=== PATIENT | female | born 1940 | race Caucasian/White ===

== ENCOUNTER 2017-07-22 21:14 | Inpatient (IN) | payer OTHER ==
[~2017-07-22] VITALS: Ht 154.9 cm; Wt 50.9 kg
[2017-07-22 22:21] LABS: ABSOLUTE BASOPHIL COUNT 0 /CUMM (0.0-0.2); ABSOLUTE EOSINOPHIL COUNT 0.1 /CUMM (0.0-0.7); ABSOLUTE GRANULOCYTE CT 11.6 /CUMM (1.4-6.5); ABSOLUTE LYMPH COUNT 0.7 /CUMM (1.2-3.4); ABSOLUTE MONOCYTE COUNT 0.7 /CUMM (0.10-0.60); BASOPHIL % 0 % (0.0-2.0); EOSINOPHIL % 0.7 % (0-5); HEMATOCRIT 31.7 % (37-47); MEAN CORPUSCULAR HGB 28.7 PG (27.0-31.0); MEAN CORPUSCULAR HGB CONC 33.2 G/DL (33.0-37.0); MEAN CORPUSCULAR VOLUME 86.4 FL (81.0-99.0); MEAN PLATELET VOLUME 7.6 FL (7.4-10.4); PLATELET COUNT 277 /CUMM (130-400); RBC DISTRIBUTION WIDTH 14.2 % (11.5-14.5); RED BLOOD CELL CT 3.67 /CUMM (4.20-5.40); WHITE BLOOD CELL COUNT 13.1 /CUMM (4.8-10.8)
[2017-07-22 22:23] LABS: GRANULOCYTE % 88.6 % (42.2-75.2)
--- NOTE | 2017-07-22 23:02 | ED GENERAL ADULT ---
History of Present Illness General Chief Complaint: General Adult Stated Complaint: WEAK/BLURRED VISION/ BGL > 500 Source: patient, family, old records Exam Limitations: no limitations Vital Signs & Intake/Output Vital Signs & Intake/Output Vital Signs Date Time Temp Pulse Resp B/P B/P Pulse O2 O2 Flow FiO2 Mean Ox Delivery Rate 07/22 2308 97.4 68 16 148/67 97 Room Air 07/227 98.0 77 17 128/76 94 Room Air Allergies Coded Allergies: erythromycin base (Intermediate, PALPITATIONS 06/29/15) Triage Note: PT TO ED WT[facility] C/O BLOOD SUGARS GREATER THAN 500 FOR MARCELLO PAST 5 DAYS. STATES SHE IS USUALLY WELL CONTROLLED ON PO METFORMIN BUT WAS RECENTLY PUT ON PO PREDNISONE FOR ELEVATED SED RATE. +HEADACHE, PU/PD. Triage Nurses Notes Reviewed? yes HPI: Patient was experiencing pain to both temples so she had outpatient blood work which showed an ESR of 101. For this reason patient was started on prednisone. Patient is a type II diabetic and takes metformin. The past 6 days her blood sugars been over 500. She states that now she is feeling lightheaded and blurry vision and off balance. Patient denies any abdominal pain. Patient states that she is been urinating more frequently. There is no dysuria. She denies any chest pain or shortness of breath. She denies any pain in her neck or her shoulder area. Patient states that she has chronic low back pain from osteoarthritis. Past History Travel History Traveled to [place] past 21 day No Medical History Any Pertinent Medical History? see below for history Cardiovascular: hypertension, HIGH CHOLESTEROL Respiratory: asthma Gastrointestinal: GERD Endocrine: diabetes, HYPOTHYROIDISM Surgical History Surgical History: non-contributory Psychosocial History What is your primary language Vietnamese Tobacco Use: Quit >30 days ago ETOH Use: denies use Illicit Drug Use: denies illicit drug use Family History Hx Contributory? No Review of Systems Review of Systems Constitutional: Reports: no symptoms. EENTM: Reports: see HPI, blurred vision. Respiratory: Reports: no symptoms. Cardiovascular: Reports: no symptoms. GI: Reports: no symptoms. Genitourinary: Reports: see HPI. Musculoskeletal: Reports: no symptoms. Skin: Reports: no symptoms. Neurological/Psychological: Reports: no symptoms. Hematologic/Endocrine: Reports: no symptoms. Immunologic/Allergic: Reports: no symptoms. All Other Systems: Reviewed and Negative Physical Exam Physical Exam General Appearance: well developed/nourished, alert, awake Head: atraumatic, normal appearance Eyes: Bilateral: PERRL, EOMI. Ears, Nose, Throat: normal pharynx, normal ENT inspection, hearing grossly normal Neck: normal inspection, supple, full range of motion Respiratory: normal breath sounds, chest non-tender, no respiratory distress, lungs clear Cardiovascular: regular rate/rhythm, normal peripheral pulses Gastrointestinal: normal bowel sounds, soft, non-tender, no organomegaly Back: normal inspection, normal range of motion Extremities: normal inspection, normal capillary refill, normal range of motion, no edema Neurologic/Psych: no motor/sensory deficits, awake, alert, oriented x 3, normal gait, normal mood/affect Skin: intact, normal color, warm/dry Core Measures ACS in differential dx? No CVA/TIA Diagnosis: No Sepsis Present: No Sepsis Focused Exam Completed? No Progress Differential Diagnoses I considered the following diagnoses in my evaluation of the patient: [ HYPERGLYCEMIA, ELECTROLYTE ABNORMALITY, DKA, HONK] Plan of Care: Orders Procedure Date/time Status Heart Healthy Diet 07/23 B Active ED Holding Orders 07/22 2329 Active Admit to inpatient 07/22 2329 Active Vital Signs 07/22 2329 Active Code Status 07/22 2329 Active Add-on Test (ER Only) 07/22 2306 Active CULTURE,URINE 07/22 2249 Active MIXED VENOUS BLOOD GAS (GEN) 07/22 2132 Active URINALYSIS 07/22 2132 Complete TROPONIN LEVEL 07/22 2132 Complete COMPREHENSIVE METABOLIC PANEL 07/22 2132 Complete CBC WITHOUT DIFFERENTIAL 07/22 2132 Complete ACETONE 07/22 2132 Complete EKG 07/22 2132 Active Current Medications Sig/Liliana Start time Last Medication Dose Stop Time Status Admin Sodium Chloride 1,000 ML BOLUS ONE 07/22 2314 AC 07/22 (Normal Saline 0.9%) 07/23 13 2329 Sodium Chloride 1,000 ML BOLUS ONE 07/22 2314 AC (Normal Saline 0.9%) 07/23 001 Laboratory Tests 07/22/172249: Urine Color YEL, Urine Clarity CLEAR, Urine pH 6.5, Ur Specific [place] 1.010, Urine Protein TRACE H, Urine Ketones NEG, Urine Nitrite NEG, Urine Bilirubin NEG, Urine Urobilinogen 0.2, Ur Leukocyte Esterase SMALL H, Ur Microscopic SEDIMENT EXAMINED, Urine WBC 10-15 H, Urine Bacteria MOD H, Urine Hemoglobin NEG, Urine Glucose >=1000 H 07/22/170: Anion Gap 14, Estimated GFR 48 L, BUN/Creatinine Ratio 30.9 H, Glucose 539 *H, Calcium 9.9, Total Bilirubin 0.4, AST 10 L, ALT 19, Alkaline Phosphatase 78, Troponin I < 0.01, Total Protein 7.1, Albumin 4.0, Globulin 3.1, Albumin/ Globulin Ratio 1.3, CBC w Diff NO MAN DIFF REQ, RBC 3.67 L, MCV 86.4, MCH 28.7, MCHC 33.2, RDW 14.2, MPV 7.6, Gran % 88.6 H, Lymphocytes % 5.0 L, Monocytes % 5.7, Eosinophils % 0.7, Basophils % 0, Absolute Granulocytes 11.6 H, Absolute Lymphocytes 0.7 L, Absolute Monocytes 0.7 H, Absolute Eosinophils 0.1, Absolute Basophils 0, Acetone Level NEGATIVE Microbiology 07/22 2249 URINE ROUT: Urine Culture - RECD Initial ED EKG: SR WITH RBBB ANC NSS CHANGES, PRIOR EKG SHOWED INCOMPLETE RBBB. Prior EKG: changed Comments: Patient has no symptoms of a UTI other than the urinary frequency. Her urine culture has been obtained. Will withhold antibiotics for now. Departure Departure Disposition: STILL A PATIENT Condition: Stable Clinical Impression Primary Impression: Hyperglycemia Secondary Impressions: Elevated erythrocyte sedimentation rate Referrals: Dre Miramontes MD (PCP/Family) Departure Forms: Customer Survey General Discharge Information Admission Note Spoke With: Satinder Johns MD Documentation of Exam: Documentation of any treatments & extenuating circumstances including Concerns Regarding Discharge (functional status, medication knowledge or non-compliance, living conditions, etc.) that warrant an admission rather than observation: [ Admitted for sugar control, IV fluids, endocrine consult, vascular surgery consult for temporal artery biopsy] Critical Care Note Critical Care Note Critical Care Time: non-applicable
--- NOTE | 2017-07-22 23:46 | History & Physical ---
Elva Calixto MD,[facility] 07/22/17 2346: General Information and HPI MD Statement: I have seen and personally examined NIMESH JERRY and documented this H&P. The patient is a 77 year old F who presented with a patient stated chief complaint of [weakness and blurred vision]. Source of Information: patient, family, old records Exam Limitations: no limitations History of Present Illness: Patient is 77 y F with PMH of HTN, HLP, asthma, GERD, closed-angle glaucoma, DM and hypothyroidism presented to the ED with chief complaint of weakness, blurred vision and high blood sugars. Patient's son was also present at the bedside contributing in history taking.. Patient was in usual state of health till 10 days ago that she had bitemporal headache, she visited her PCP, was found to have ESR of 100 and was started on 60mg Oral prednisolon, the dose of Metformin was also increased to 1000 daily to BID in anticipation of increased BS. She was also referred to capital campaign fundraiser, however patient doesn't know regarding findings, however she noted that her PCP contacted the capital campaign fundraiser and they biopsy was deffered and was decided to do ECho and abdominal and Chest CT scan. Later the prednisolon was tapered to 40 and then 10mg, however her blood sugars continued to be high in 500s, today patient decided to come to hospital. Patient also reported generalized weakness as well as being wobbly when walking in the last few months. She denied however any chest pain, nausea or vomiting, shoulder or hip muscle stiffness, arthralgia. She follows Gibson Crisostomo MD for her kidney, Dr. Shruthi Cueto was also planned to visit Dr Tucker on August 13. Patient lives with her son in the same house, is pretty independent in activities of daily life. She smoked for more than 30 years 1.5 PPD and quit in 2009. She also denied any alcohol intake or using recreational drugs. Allergies/Medications Allergies: Coded Allergies: erythromycin base (Intermediate, PALPITATIONS 06/29/15) Past History Travel History Traveled to [place] past 21 day No Medical History Cardiovascular: hypertension, HIGH CHOLESTEROL Respiratory: asthma Gastrointestinal: GERD Endocrine: diabetes, HYPOTHYROIDISM Surgical History Surgical History: non-contributory Past Family/Social History Psychosocial History ETOH Use: denies use Illicit Drug Use: denies illicit drug use Review of Systems Review of Systems Constitutional: Reports: see HPI. Exam & Diagnostic Data Last 24 Hrs of Vital Signs/I&O Vital Signs Date Time Temp Pulse Resp B/P B/P Pulse O2 O2 Flow FiO2 Mean Ox Delivery Rate 07/23 0147 97.9 78 20 145/73 99 Room Air 07/22 2308 97.4 68 16 148/67 97 Room Air 07/227 98.0 77 17 128/76 94 Room Air Intake & Output 07/23 0800 07/23 0000 07/22 1600 Intake Total 1000 0 Output Total Balance 1000 0 Intake, IV 1000 Intake, Oral 0 Patient 112 lb Weight Weight Bed scale Measurement Method Physical Exam General Appearance Alert, Oriented X3, Cooperative, No Acute Distress Skin No Significant Lesion Skin Temp/Moisture Exam: Warm/Dry Sepsis Skin Exam (color): Normal for Ethnicity HEENT Atraumatic, EOMI, Mucous Membr. moist/pink Cardiovascular Normal S1, Normal S2 Lungs Clear to Auscultation, Normal Air Movement Abdomen mild abdominal tenderness Neurological Normal Speech, Strength at 5/5 X4 Ext Extremities No Edema Last 24 Hrs of Labs/Aries: Laboratory Tests 07/22/17 2250: Urine Color YEL, Urine Clarity CLEAR, Urine pH 6.5, Ur Specific [place] 1.010, Urine Protein TRACE H, Urine Ketones NEG, Urine Nitrite NEG, Urine Bilirubin NEG, Urine Urobilinogen 0.2, Ur Leukocyte Esterase SMALL H, Ur Microscopic SEDIMENT EXAMINED, Urine WBC 10-15 H, Urine Bacteria MOD H, Urine Hemoglobin NEG, Urine Glucose >=1000 H 07/22/17 2210: Anion Gap 14, Estimated GFR 48 L, BUN/Creatinine Ratio 30.9 H, Glucose 539 *H, Hemoglobin A1c Pending, Calcium 9.9, Total Bilirubin 0.4, AST 10 L, ALT 19, Alkaline Phosphatase 78, Troponin I < 0.01, Total Protein 7.1, Albumin 4.0, Globulin 3.1, Albumin/Globulin Ratio 1.3, Vitamin B12 Pending, 25-OH Vitamin D Total Pending, Folate Pending, CBC w Diff NO MAN DIFF REQ, RBC 3.67 L, MCV 86.4 , MCH 28.7, MCHC 33.2, RDW 14.2, MPV 7.6, Gran % 88.6 H, Lymphocytes % 5.0 L, Monocytes % 5.7, Eosinophils % 0.7, Basophils % 0, Absolute Granulocytes 11.6 H , Absolute Lymphocytes 0.7 L, Absolute Monocytes 0.7 H, Absolute Eosinophils 0.1, Absolute Basophils 0, Acetone Level NEGATIVE Microbiology 07/220 URINE ROUT: Urine Culture - RECD Assessment/Plan Assessment: Patient is 77 y F presented with weakness, blurred vision and high blood sugars. increased ESR bitemporal pain PMH of HTN, HLP, asthma, GERD, closed-angle glaucoma, DM and hypothyroidism VS, Ph Ex at admission: No fever, BP 128/76, [place] 77, RR 17 Labs at admission: WBC 13.1, Hgb 10.5, Sodium 126, bicarbonate 18, BUN 34, CR 1.1, BUN/creatinine ratio 30.9, Glucose 539 UA: WBC 10-15, leukocyte esterase small Imagings at admission: No imaging Patient was admitted to GM floor for management of following conditions: HHS 4/5 criteria for GCA CKD chronic medical problems - admit to GM floor - Vital signs - prednisolon 40mg - ESR, HB a1C - levemir 5u, sliding scale and accuchecks, hold metformin - Endo consult - surg consult - NPO for now - get records from PCP/ophtalmologist office - continue rest of home medication - PT consult FC DVT ppx: alps and phramacological NPO for now As Ranked By This Provider Problem List: 1. Elevated erythrocyte sedimentation rate 2. Hyperglycemia Core Measures/Misc (11/18) Acute Coronary Syndrome ACS Diagnosis: No Congestive Heart Failure Congestive Heart Failure Diagnosis No Cerebrovascular Accident CVA/TIA Diagnosis: No VTE (View Protocol) VTE Risk Factors Age>40 No Mechanical VTE Prophylaxis d/t N/A MechProphylax Ordered No VTE Pharm Prophylaxis d/t NA PharmProphylax ordered Sepsis (View protocol) Sepsis Present: No Mattie DEL VALLE,[facility] 07/23/17 7580: General Information and HPI Allergies/Medications Home Med list Aspirin (Aspirin*) 81 MG TAB.CHEW 1 TAB PO DAILY HEART HEALTH (Reported) Cholecalciferol (Vitamin D3) (Vitamin D3) 1,000 UNIT CAPSULE 1 CAP PO DAILY BONE STRENGTH (Reported) Cyanocobalamin (Vitamin B-12) 1,000 MCG TABLET 500 MG PO DAILY HEART HEALTH ( Reported) Diltiazem HCl (Cardizem Cd) 300 MG CAP.ER.24H 1 CAP PO DAILY VENTRICULAR ECTOPY (Reported) Ezetimibe (Zetia) 10 MG TABLET 1 TAB PO DAILY HLP (Reported) Levothyroxine Sodium (Synthroid) 100 MCG TABLET 1 TAB PO DAILY HYPOTHYRODISM (Reported) Metformin HCl (Glucophage) 1,000 MG TABLET 1 TAB PO BID DM (Reported) Metoprolol Succinate 100 MG TAB.ER.24H 1 TAB PO DAILY HTN (Reported) Montelukast Sodium 10 MG TABLET 1 TAB PO DAILY ALLERGIES (Reported) Omeprazole 20 MG CAPSULE.DR 1 CAP PO DAILY ACID REFLUX (Reported) Sodium Bicarbonate 650 MG TABLET 1 TAB PO BID VITAMIN SUPPORT (Reported) Resident Review Statement Resident Statement: examined this patient, discussed with integrated marketing intern, agreed with integrated marketing intern, discussed with family, reviewed EMR data (avail) Other Findings: Nimesh is a 77-year-old female with past medical history significant for hypothyroidism, hypertension, hyperlipidemia, ventricular ectopy, CKD III, diabetes mellitus type 2 who presented to ED with chief complaint of hyperglycemia 7 days. Patient reported having bitemporal headaches and was found to have ESR of 101 week ago, PCP referred her to capital campaign fundraiser and decision was made to start prednisone for suspected giant cell arthritis. Patient reported having her pain "eased up" even before starting prednisone. Patient was started on prednisone 60 mg daily for a week, blood sugar reportedly above 500 every morning since she started prednisone, patient contacted PCP over the phone who advised her to decrease it to 40 mg and then to 10 mg for yesterday and today. Patient reported some abdominal discomfort however denied any nausea, vomiting, diarrhea or constipation. Patient was given a referral to Dr. Cameron analytical research program manager an appointment was made on August 13. Patient reported weakness over the last couple of weeks, used to walk with support of the furniture around. She denied falls, dizziness, lower extremity weakness or numbness. She is independent in ADLs, lives by herself however son lives next door. 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 Tucker rheumatology. Problem list #Steroid-induced hyperglycemia #Bitemporal headaches and elevated ESR questionable giant cell arthritis #Generalized weakness #Hypothyroidism #Hypertension hyperlipidemia #Ventricular ectopy Plan Admit to general medical floor Vitals every shift IV fluids patient received 2 L boluses will continue with 1 L maintenance normal saline running at 75 cc/h Levemir 5 units daily Accu Check and NovoLog sliding scale Continue prednisone 40 mg daily po Surgical consultation for giant artery biopsy Obtain endocrine consultation Obtain hemoglobin A1c Obtain vitamin B12, folic acid and vitamin D level Obtain records from PCP Diet diabetic diet with sodium restriction DVT prophylaxis heparin subcutaneous and outs Code full with Satinder Johns 07/23/17 0523: Attending MD Review Statement Attending Statement Attending MD Statement: examined this patient, discuss w/resident/PA/DOG DAY CARE ATTENDANT, agreed w/resident/PA/DOG DAY CARE ATTENDANT, discussed with family, reviewed EMR data (avail), reviewed images, amended to note Attending Assessment/Plan: CC: High blood sugar PMH: DM, HTN, HLD, asthma/COPD, hypothyroidism, lung nodules Patient came to ER for high blood sugars, more than 500. According to her her blood sugars were well controlled on metformin few days back but recently she was started on prednisone which is worsening her blood sugar. Approximately 7 days back she started to notice bilateral temporal pain and headache, she followed up with primary care physician who checked ESR which was elevated. Patient was started on prednisone and her metformin dose was increased to 1000 twice a day. Even with this change in her blood sugars were more than 500 for several days, she followed up with primary care physician to decrease the dose of prednisone, she is currently on 10 mg of prednisone still blood sugars were high so she came to ER. She feels weak and lethargic, occasionally blurry vision and has weak abdominal pain, mostly left lower quadrant. At some point she states that this pain is new and other times she states it has been going on for some time. She denies any nausea, vomiting, neck stiffness, shoulder pain, symptoms suggestive of proximal muscle weakness, joint swellings. She has chronically dry mouth for long time. She was referred to capital campaign fundraiser by patient's primary care physician, who suggested that patient may not have temporal arteritis, and other causes should be investigated for elevated ESR. Temporal artery biopsy was never done in last few days. Vitals: Temperature 98.0, pulse 77, RR 17, blood pressure 128/76, saturating 94% on room air. On exam: A O 3, cooperative, thin built, no acute distress, neck supple, JVD normal, no lymphadenopathy, mucosa dry, no focal neurological deficit, no dependent edema, no obvious skin rashes or inflammation CVS: S1-S2, RRR. RS: Clear to auscultate bilaterally. Abdomen: Soft, mild tenderness throughout abdomen but no guarding or rigidity, ND, bowel sounds present. Assessment and plan 77-year-old female with multiple comorbidities mentioned above presented in ER for hyperglycemia. She was recently started on prednisone with suspicion of temporal arteritis. She has by bilateral temporal headache and her ESR was 101. She was evaluated by capital campaign fundraiser outpatient who did not find any abnormality , suggested that this is less likely temporal arteritis but temporal artery biopsy was not done. Patient continued prednisone at home but her blood sugars were elevated so she again followed up with primary care physician, prednisone was changed to 10 mg daily. Her blood sugar was still persistently elevated so she came to ER. She feels weak and lethargic, has intermittent blurry vision, vague abdominal pain but complete physical examination unremarkable except mild dehydration. She has leukocytosis, probably secondary to steroids. Pseudohyponatremia and blood sugar up to 539. Patient needs further evaluation for temporal arteritis given high ESR and temporal headache. She needs temporal artery biopsy. Given that time she needs to be continued on prednisone which will precipitate hyperglycemia, temporarily requiring low-dose insulin. Patient states that her headache resolved even before starting prednisone and she thinks that other causes of inflammation should be sought. If temporal artery biopsies unremarkable than CT abdomen and chest should be obtained to rule out any other inflammation. + Hyperglycemia with underlying debility secondary to prednisone + Suspected temporal arteritis + Pseudohyponatremia + Leukocytosis secondary to prednisone + History of DM, HTN, HLD, asthma/COPD, hypothyroidism, lung nodules - Admit to general medicine - Continue IV hydration with normal saline at 100 mL per hour - Continue oral hydration and diet - Continue Levemir 5 units subcutaneously - Sliding scale short-acting low-dose insulin pre-meal - Endocrine consult - HbA1c, repeat ESR, obtain records from primary care physician - Vascular surgery consult for biopsy - Continue prednisone 40 mg daily - Hold metformin - Continue other medications - DVT prophylaxis
[2017-07-23 01:47] VITALS: BP 145/73
[2017-07-23] MEDS ORDERED: SYNTHROID100 MCG PO (04:15)
[2017-07-23] MEDS ORDERED: ZETIA10 M1 PO (04:17)
[2017-07-23] MEDS ORDERED: METOPROLOL SUC100 M2 PO (04:17)
[2017-07-23] MEDS ORDERED: CARDIZEM CD300 M1 PO (04:17)
[2017-07-23] MEDS ORDERED: GLUCOPHAGE1000 M1 PO (04:18)
[2017-07-23] MEDS ORDERED: MONTELUKAST SOD10 M1 PO (04:18)
[2017-07-23] MEDS ORDERED: ASPIRIN81 M4 PO (04:18)
[2017-07-23] MEDS ORDERED: VITAMIN B-121000 MC3 PO (04:19)
[2017-07-23] MEDS ORDERED: VITAMIN D31000 UNI1 PO (04:19)
[2017-07-23] MEDS ORDERED: OMEPRAZOLE20 M2 PO (04:20)
[2017-07-23] MEDS ORDERED: SODIUM BICARBO650 M1 PO (04:21)
--- NOTE | 2017-07-23 05:24 | Admission Certification ---
Admission Certification Certification Statement - As attending physician, I certify that at the time of - admission, based on clinical presentation, severity of - symptoms, need for further diagnostic testing and - therapeutic interventions, and risk of adverse outcomes - without in-hospital treatment, in my clinical assessment, - this patient requires an acute hospital stay for a minimum - of two nights or longer. I have also considered psychsocial - factors such as support system, advanced age, financial - issues, cognitive issues, and failed out-patient treatments, - past re-admission history, safety of patient, and lack of - compliance as applicable. Specific rationale supporting this admission is: [id number] diabetes with hyperglycemia requiring insulin treatment, suspected temporal arteritis
[2017-07-23 07:18] VITALS: BP 133/65
--- NOTE | 2017-07-23 07:56 | PN- Housestaff ---
Subjective Follow-up For: Hyperglycemia Suspected temporal arteritis Subjective: Patient seen and examined. Resting comfortably. Patient denies any headache but complains of for blurred vision mostly in the left eye. As per patient her vision has improved ever since her blood sugars trending down. Review of Systems Constitutional: Reports: see HPI. Objective Last 24 Hrs of Vital Signs/I&O Vital Signs Date Time Temp Pulse Resp B/P B/P Pulse O2 O2 Flow FiO2 Mean Ox Delivery Rate 07/23 0827 122/68 07/23 0718 97.8 68 18 133/65 100 Room Air 07/23 0147 97.9 78 20 145/73 99 Room Air 07/22 2308 97.4 68 16 148/67 97 Room Air 07/22 2127 98.0 77 17 128/76 94 Room Air Intake & Output 07/23 1600 07/23 0800 07/23 0000 Intake Total 1540 0 Output Total Balance 1540 0 Intake, IV 1300 Intake, Oral 240 0 Patient 112 lb Weight Weight Bed scale Measurement Method Physical Exam General Appearance: Alert, Oriented X3, Cooperative Skin: No Rashes Cardiovascular: Normal S1, Normal S2 Lungs: Clear to Auscultation Abdomen: Normal Bowel Sounds Neurological: Normal Speech, no temporal tenderness Current Medications: Current Medications Sig/Liliana Start time Last Medication Dose Route Stop Time Status Admin Acetaminophen 325 MG Q6P PRN 07/23 0245 AC PO Aspirin 81 MG DAILY 07/23 0900 AC 07/23 PO 0827 Diltiazem HCl 300 MG DAILY 07/23 0900 AC 07/23 PO 0828 Enoxaparin Sodium 40 MG DAILY 07/23 0900 AC 07/23 SC 0828 Ezetimibe 10 MG DAILY 07/23 0900 AC 07/23 PO 0827 Insulin Aspart 0 TIDAC/HS 07/23 1200 AC 07/23 SC 1207 Insulin Aspart 0 TIDAC 07/23 0800 CAN SC Insulin Aspart 0 TIDAC 07/23 0800 DC 07/23 SC 0827 Insulin Detemir 10 UNITS DAILY 07/24 0900 AC SC Insulin Detemir 5 UNITS ONCE ONE 07/23 1045 DC 07/23 SC 07/23 1046 1208 Insulin Detemir 10 UNITS DAILY 07/23 1028 DC SC Insulin Detemir 5 UNITS DAILY 07/23 0900 DC 07/23 SC 0827 Levothyroxine Sodium 0.1 MG DAILY AC 07/23 0700 AC 07/23 PO 0630 Metoprolol Succinate 100 MG DAILY 07/23 09 AC 07/23 PO 0827 Omeprazole 20 MG DAILY AC 07/23 07 AC 07/23 PO 0630 Prednisone 40 MG DAILY 07/23 09 AC 07/23 PO 0827 Sodium Chloride 1,000 ML .Q10H 07/23 0245 AC 07/23 IV 07/23 1329 0257 Sodium Chloride 1,000 ML BOLUS ONE 07/22 2315 DC 07/22 IV 07/23 0014 2329 Sodium Chloride 1,000 ML BOLUS ONE 07/22 2315 DC 07/23 IV 07/23 0014 0012 Last 24 Hrs of Lab/Aries Results Last 24 Hrs of Labs/Mics: Laboratory Tests 07/23/17 0740: ESR Westergren 40 H 07/23/17 0740: Anion Gap 10, Estimated GFR > 60, BUN/Creatinine Ratio 30.0 H, TSH 0.523, Free T4 1.32, CBC w Diff NO MAN DIFF REQ, RBC 3.24 L, MCV 85.2, MCH 28.6, MCHC 33.6, RDW 14.1, MPV 7.8, Gran % 84.2 H, Lymphocytes % 8.9 L, Monocytes % 6.5, Eosinophils % 0.4, Basophils % 0, Absolute Granulocytes 5.6, Absolute Lymphocytes 0.6 L, Absolute Monocytes 0.4, Absolute Eosinophils 0, Absolute Basophils 0, Thyroglobulin Antibody Pending, Thyroid Peroxidase Ab Pending 07/23/17 0600: ANCA Pending 07/22/17 2250: Urine Color YEL, Urine Clarity CLEAR, Urine pH 6.5, Ur Specific [place] 1.010, Urine Protein TRACE H, Urine Ketones NEG, Urine Nitrite NEG, Urine Bilirubin NEG, Urine Urobilinogen 0.2, Ur Leukocyte Esterase SMALL H, Ur Microscopic SEDIMENT EXAMINED, Urine WBC 10-15 H, Urine Bacteria MOD H, Urine Hemoglobin NEG, Urine Glucose >=1000 H 07/22/17 2210: Anion Gap 14, Estimated GFR 48 L, BUN/Creatinine Ratio 30.9 H, Glucose 539 *H, Hemoglobin A1c 8.7 H, Calcium 9.9, Total Bilirubin 0.4, AST 10 L, ALT 19, Alkaline Phosphatase 78, Troponin I < 0.01, Total Protein 7.1, Albumin 4.0, Globulin 3.1, Albumin/Globulin Ratio 1.3, Vitamin B12 > 1000 H, 25-OH Vitamin D Total 24.9 L, Folate > 20.0 H, CBC w Diff NO MAN DIFF REQ, RBC 3.67 L, MCV 86.4, MCH 28.7, MCHC 33.2, RDW 14.2, MPV 7.6, Gran % 88.6 H, Lymphocytes % 5.0 L, Monocytes % 5.7, Eosinophils % 0.7, Basophils % 0, Absolute Granulocytes 11.6 H, Absolute Lymphocytes 0.7 L, Absolute Monocytes 0.7 H, Absolute Eosinophils 0.1, Absolute Basophils 0, Acetone Level NEGATIVE Microbiology 07/22 2249 URINE ROUT: Urine Culture - RES GRAM NEGATIVE RODS Assessment/Plan Assessment: 77-year-old female with PMH DM, HTN, HLD, asthma/COPD, hypothyroidism, lung nodules presented in ER for hyperglycemia. She was recently started on prednisone with suspicion of temporal arteritis. She is being treated and evaluated for following conditions #Hyperglycemia and uncontrolled diabetes Patient presented with a complaint of fatigue and blurred vision with her blood sugar running in 500s. -HbA1C 8.7 -Endocrinology on board -Metformin on hold -Insulin sliding scale and Levemir as per Dr. Osuna recommendation -Continue IV hydration #Suspected temporal arteritis Patient was being worked up for giant cell arteritis by her PCP. Patient is referred to ophthalmology as well. As per patient director of culture did not find any ocular abnormalities. Patient is currently on a steroid taper. She reports having elevatedESR up to 100 -Repeat ESR was 40 -continue the steroid taper -Rheumatology consult with Dr. Tucker -We will decide whether patient needs a biopsy or not based on Tim Tucker MD recommendations. -Records requested from patient's PCP. #History of hypothyroidism Patient is currently taking levothyroxine 100mcg -Endocrinology on board -TSH and free T4 within normal limits -Anti-TPO anti-peroxidase antibody results pending #Leukocytosis secondary to prednisone -Continue to monitor #Pseudohyponatremia in setting of hyperglycemia -Continue to monitor #History of lung nodules The patient has waxing and waning pulmonary nodules which could suggest an inflammatory process in her chest as a cause of her elevated sed rate -We will check ANCA -Will consider Pulm evaluation #History of ventricular ectopy and HTN, COPD/asthma, HLD, GERD -Continue Cardizem and metoprolol, Breo Ellipta, Zetia, omeprazole Diet/DVT prophylaxis with Lovenox/FC Problem List: 1. Elevated erythrocyte sedimentation rate Pain Ratin Pain Location: none Pain Goal: Pain 4 or less Pain Plan: prn Tomorrow's Labs & Rationales: bep
--- NOTE | 2017-07-23 08:23 | Cons- Endocrinology ---
General Information and HPI Consulting Request Date of Consult: 07/23/17 Requested By: medical team Reason for Consult: Uncontrolled diabetes Source of Information: patient, old records Exam Limitations: no limitations History of Present Illness: This 77-year-old woman has a long-standing history of diabetes type 2. She is usually managed on metformin alone. She developed a headache and was found to have a elevated sed rate. She was placed on prednisone and her sugar went out of control. Her sugars have been in the 4-500 range for the past 5-6 days. Eventually she came to the emergency room. Apparently she did see Dr. Hunt who is her research manager but no temporal artery biopsy has been done as yet. The patient is presently on prednisone 40 mg once a day The patient sugar in the ER yesterday was 539 with a sodium of 126 potassium 4.5 BUN 34 creatinine 1.1. The patient notes a lot of thirst and urination. She also has some blurred vision. Her headache resolved even before the prednisone was begun according to the patient and she denies any headache at the present time. The patient's fingerstick sugar before breakfast this morning is 420. The patient also has a history of hypothyroidism and is on levothyroxine 100 mcg daily at home.. Allergies/Medications Allergies: Coded Allergies: erythromycin base (Intermediate, PALPITATIONS 06/29/15) Home Med List: Aspirin (Aspirin*) 81 MG TAB.CHEW 1 TAB PO DAILY HEART HEALTH (Reported) Cholecalciferol (Vitamin D3) (Vitamin D3) 1,000 UNIT CAPSULE 1 CAP PO DAILY BONE STRENGTH (Reported) Cyanocobalamin (Vitamin B-12) 1,000 MCG TABLET 500 MG PO DAILY HEART HEALTH ( Reported) Diltiazem HCl (Cardizem Cd) 300 MG CAP.ER.24H 1 CAP PO DAILY VENTRICULAR ECTOPY (Reported) Ezetimibe (Zetia) 10 MG TABLET 1 TAB PO DAILY HLP (Reported) Fluticasone/Vilanterol (Breo Ellipta 100-25 Mcg INH) 100 MCG-25 MCG/DOSE BLST.W.DEV 2 PUFF INH DAILY PRN SOB (Reported) Levothyroxine Sodium (Synthroid) 100 MCG TABLET 1 TAB PO DAILY HYPOTHYRODISM (Reported) Metformin HCl (Glucophage) 1,000 MG TABLET 1 TAB PO BID DM (Reported) Metoprolol Succinate 100 MG TAB.ER.24H 1 TAB PO DAILY HTN (Reported) Montelukast Sodium 10 MG TABLET 1 TAB PO DAILY ALLERGIES (Reported) Omeprazole 20 MG CAPSULE. 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 Home Services at Home: None Smoking Status: Former Smoker ETOH Use: denies use Illicit Drug Use: denies illicit drug use Exam & Diagnostic Data Last 24 Hrs of Vital Signs/I&O Vital Signs Date Time Temp Pulse Resp B/P B/P Pulse O2 O2 Flow FiO2 Mean Ox Delivery Rate 07/23 07 97.8 68 18 133/65 100 Room Air 07/23 0147 97.9 78 20 145/73 99 Room Air 07/22 2308 97.4 68 16 148/67 97 Room Air 07/22 2126 98.0 77 17 128/76 94 Room Air Intake & Output 07/23 1600 07/23 0800 07/23 0000 Intake Total 1540 0 Output Total Balance 1540 0 Intake, IV 1300 Intake, Oral 240 0 Patient 112 lb Weight Weight Bed scale Measurement Method Vital Signs Date Time Temp Pulse Resp B/P B/P Pulse O2 O2 Flow FiO2 Mean Ox Delivery Rate 07/23 0618 97.8 68 18 133/65 100 Room Air 07/23 0147 97.9 78 20 145/73 99 Room Air 07/22 2308 97.4 68 16 148/67 97 Room Air 07/22 2126 98.0 77 17 128/76 94 Room Air Intake & Output 07/23 1600 07/23 0800 07/23 0000 Intake Total 1540 0 Output Total Balance 1540 0 Intake, IV 1300 Intake, Oral 240 0 Patient 112 lb Weight Weight Bed scale Measurement Method Physical Exam General Appearance: alert, awake, comfortable Head: normal appearance Neck: normal inspection Respiratory: decreased breath sounds Cardiovascular: regular rate/rhythm Gastrointestinal: normal bowel sounds, soft Extremities: normal inspection Labs/Aries Results: Laboratory Tests 07/23 07/23 07/22 0740 0740 2250 Chemistry Sodium Pending Potassium Pending Chloride Pending Carbon Dioxide Pending Anion Gap Pending BUN Pending Creatinine Pending BUN/Creatinine Ratio Pending Hematology CBC w Diff Pending WBC Pending RBC Pending Hgb Pending Hct Pending MCV Pending MCH Pending MCHC Pending RDW Pending Plt Count Pending MPV Pending ESR Westergren Pending Urines Urine Color (YEL,AMB,STR) YEL Urine Clarity (CLEAR) CLEAR Urine pH (5.0 - 8.0) 6.5 Ur Specific [place] (1.001 - 1.035) 1.010 Urine Protein (NEG,<30 MG/DL) TRACE H Urine Ketones (NEG) NEG Urine Nitrite (NEG) NEG Urine Bilirubin (NEG) NEG Urine Urobilinogen (0.1 - 1.0 EU/dl) 0.2 Ur Leukocyte Esterase (NEG) SMALL H Ur Microscopic SEDIMENT EXAMINED Urine WBC (0 - 2 /HPF) 10-15 H Urine Bacteria (NEG/NONE) MOD H Urine Hemoglobin (NEG) NEG Urine Glucose (N MG/DL) >=1000 H 07/220 Chemistry Sodium (137 - 145 mmol/L) 126 L Potassium (3.5 - 5.1 mmol/L) 4.5 Chloride (98 - 107 mmol/L) 94 L Carbon Dioxide (22 - 30 mmol/L) 18 L Anion Gap (5 - 16) 14 BUN (7 - 17 mg/dL) 34 H Creatinine (0.5 - 1.0 mg/dL) 1.1 H Estimated GFR (>60 ml/min) 48 L BUN/Creatinine Ratio (7 - 25 %) 30.9 H Glucose (65 - 99 mg/dL) 539 *H Hemoglobin A1c (4.2 - 5.8 %) Pending Calcium (8.4 - 10.2 mg/dL) 9.9 Total Bilirubin (0.2 - 1.3 mg/dL) 0.4 AST (14 - 36 U/L) 10 L ALT (9 - 52 U/L) 19 Alkaline Phosphatase (<127 U/L) 78 Troponin I (< 0.11 ng/ml) < 0.01 Total Protein (6.3 - 8.2 g/dL) 7.1 Albumin (3.5 - 5.0 g/dL) 4.0 Globulin (1.9 - 4.2 gm/dL) 3.1 Albumin/Globulin Ratio (1.1 - 2.2 %) 1.3 Vitamin B12 (239 - 931 pg/mL) > 1000 H 25-OH Vitamin D Total (30 - 100 ng/ml) 24.9 L Folate (2.76 - 20.0 ng/mL) > 20.0 H Hematology CBC w Diff NO MAN DIFF REQ WBC (4.8 - 10.8 /CUMM) 13.1 H RBC (4.20 - 5.40 /CUMM) 3.67 L Hgb (12.0 - 16.0 G/DL) 10.5 L Hct (37 - 47 %) 31.7 L MCV (81.0 - 99.0 FL) 86.4 MCH (27.0 - 31.0 PG) 28.7 MCHC (33.0 - 37.0 G/DL) 33.2 RDW (11.5 - 14.5 %) 14.2 Plt Count (130 - 400 /CUMM) 277 MPV (7.4 - 10.4 FL) 7.6 Gran % (42.2 - 75.2 %) 88.6 H Lymphocytes % (20.5 - 51.1 %) 5.0 L Monocytes % (1.7 - 9.3 %) 5.7 Eosinophils % (0 - 5 %) 0.7 Basophils % (0.0 - 2.0 %) 0 Absolute Granulocytes (1.4 - 6.5 /CUMM) 11.6 H Absolute Lymphocytes (1.2 - 3.4 /CUMM) 0.7 L Absolute Monocytes (0.10 - 0.60 /CUMM) 0.7 H Absolute Eosinophils (0.0 - 0.7 /CUMM) 0.1 Absolute Basophils (0.0 - 0.2 /CUMM) 0 Toxicology Acetone Level (NEGATIVE) NEGATIVE Assessment/Plan Assessment/Plan This 77-year-old woman has a known history of type 2 diabetes. Her sugars have gone out of control after she began taking prednisone. She is presently on prednisone 40 mg once a day. The patient will need to be maintained on insulin to counteract the effects of prednisone on her blood sugars. Suggest increase Levemir to 10 units once a day. In addition we should adjust the patient's sliding scale NovoLog before meals. Sliding scale NovoLog before meals should be 80-150 give 4 units NovoLog , 151-200 give 6 units NovoLog, 201-250 give 8 units NovoLog, 251-300 give 9 units NovoLog, 301-350 give 10 units NovoLog, 351-400 give 11 units NovoLog. A separate sliding scale bedtime NovoLog should be written. Bedtime NovoLog sliding scale should be less than 250 give no insulin, 251-300 give 2 units NovoLog, 301-350 give 3 units NovoLog, 351-400 give 4 units NovoLog. A hemoglobin A1c should be checked. The patient is on thyroid hormone. We need to check her thyroid function tests including a free T4 and TSH as well as thyroid antibodies including anti-TPO and antithyroid peroxidase. The patient has waxing and waning pulmonary nodules which could suggest an inflammatory process in her chest as a cause of her elevated sed rate. We should check her ANCA antibodies and consider pulmonary consult. The patient is also going to undergo a temporal artery biopsy. If the patient's prednisone is tapered we weill need to adjust her insulin further. Consult Acknowledgment - Thank you for your consult request.
[2017-07-23 08:54] LABS: ABSOLUTE BASOPHIL COUNT 0 /CUMM (0.0-0.2); ABSOLUTE EOSINOPHIL COUNT 0 /CUMM (0.0-0.7); ABSOLUTE GRANULOCYTE CT 5.6 /CUMM (1.4-6.5); ABSOLUTE LYMPH COUNT 0.6 /CUMM (1.2-3.4); ABSOLUTE MONOCYTE COUNT 0.4 /CUMM (0.10-0.60); BASOPHIL % 0 % (0.0-2.0); EOSINOPHIL % 0.4 % (0-5); GRANULOCYTE % 84.2 % (42.2-75.2); HEMATOCRIT 27.6 % (37-47); MEAN CORPUSCULAR HGB 28.6 PG (27.0-31.0); MEAN CORPUSCULAR HGB CONC 33.6 G/DL (33.0-37.0); MEAN CORPUSCULAR VOLUME 85.2 FL (81.0-99.0); MEAN PLATELET VOLUME 7.8 FL (7.4-10.4); PLATELET COUNT 228 /CUMM (130-400); RBC DISTRIBUTION WIDTH 14.1 % (11.5-14.5); RED BLOOD CELL CT 3.24 /CUMM (4.20-5.40); WHITE BLOOD CELL COUNT 6.6 /CUMM (4.8-10.8)
--- NOTE | 2017-07-23 11:16 | PN- Att Addend ---
Attending Addendum Attending Brief Note Patient seen and examined. Plan of care discussed with the medical team and the patient. Available lab work and radiology test reports were reviewed. Patient denies any headache but complains of for blurred vision mostly in the left eye. She feels that as her blood sugar has come down her bladder vision has improved. Denies any recent nausea vomiting fever chills or difficulty breathing. Exam: General: Patient awake alert oriented without any distress CVS: S1 plus S2 without any murmur or gallops Chest: Few scattered crepitation without any wheeze. There is no respiratory distress. Abdomen: Soft non-tender, bowel sound present, no guarding or rebound PROCESS CONTROL TECHNICIAN: Awake alert oriented without any focal neuro deficit and follows commands appropriately; no temporal tenderness is noted Extremities: No edema; no clubbing or cyanosis noted Assessment * Suspected temporal arteritis * Hyperglycemia and uncontrolled diabetes * History of hypertension * History of closed-angle glaucoma * History of hypothyroidism * Hyponatremia improved * Acute renal failure- resolved * Metabolic acidosis Plan * Check free T4, TSH * Continue prednisone * Continue insulin siding scale and Levemir as suggested by endocrinology * Rheumatology consult- we'll need to decide whether patient needs a temporal artery biopsy * Please call PCP and obtain report of a prior workup for temporal arteritis Current Medications Sig/Liliana Start time Last Medication Dose Route Stop Time Status Admin Acetaminophen 325 MG Q6P PRN 07/23 0245 AC PO Aspirin 81 MG DAILY 07/23 0900 AC 07/23 PO 0827 Diltiazem HCl 300 MG DAILY 07/23 0900 AC 07/23 PO 0828 Enoxaparin Sodium 40 MG DAILY 07/23 0900 AC 07/23 SC 0828 Ezetimibe 10 MG DAILY 07/23 0900 AC 07/23 PO 0827 Insulin Aspart 0 TIDAC/HS 07/23 1200 AC SC Insulin Aspart 0 TIDAC 07/23 0800 CAN SC Insulin Aspart 0 TIDAC 07/23 0800 DC 07/23 SC 0827 Insulin Detemir 10 UNITS DAILY 07/24 0900 AC SC Insulin Detemir 5 UNITS ONCE ONE 07/23 1045 DC SC 07/23 1046 Insulin Detemir 10 UNITS DAILY 07/23 1028 DC SC Insulin Detemir 5 UNITS DAILY 07/23 0900 DC 07/23 SC 0827 Levothyroxine Sodium 0.1 MG DAILY AC 07/23 0700 AC 07/23 PO 0630 Metoprolol Succinate 100 MG DAILY 07/23 0900 AC 07/23 PO 0827 Omeprazole 20 MG DAILY AC 07/23 0700 AC 07/23 PO 0630 Prednisone 40 MG DAILY 07/23 0900 AC 07/23 PO 0827 Sodium Chloride 1,000 ML .Q10H 07/23 0245 AC 07/23 IV 07/23 1329 0257 Sodium Chloride 1,000 ML BOLUS ONE 07/22 2315 DC 07/22 IV 07/23 0014 2329 Sodium Chloride 1,000 ML BOLUS ONE 07/22 2315 DC 07/23 IV 07/23 0014 0012 Laboratory Tests 07/23/17 0740: ESR Westergren 40 H 07/23/17 0740: Anion Gap 10, Estimated GFR > 60, BUN/Creatinine Ratio 30.0 H, TSH Pending, Free T4 Pending, CBC w Diff NO MAN DIFF REQ, RBC 3.24 L, MCV 85.2, MCH 28.6, MCHC 33.6, RDW 14.1, MPV 7.8, Gran % 84.2 H, Lymphocytes % 8.9 L, Monocytes % 6.5, Eosinophils % 0.4, Basophils % 0, Absolute Granulocytes 5.6, Absolute Lymphocytes 0.6 L, Absolute Monocytes 0.4, Absolute Eosinophils 0, Absolute Basophils 0, Thyroglobulin Antibody Pending, Thyroid Peroxidase Ab Pending 07/23/17 0600: ANCA Pending 07/22/17 2250: Urine Color YEL, Urine Clarity CLEAR, Urine pH 6.5, Ur Specific [place] 1.010, Urine Protein TRACE H, Urine Ketones NEG, Urine Nitrite NEG, Urine Bilirubin NEG, Urine Urobilinogen 0.2, Ur Leukocyte Esterase SMALL H, Ur Microscopic SEDIMENT EXAMINED, Urine WBC 10-15 H, Urine Bacteria MOD H, Urine Hemoglobin NEG, Urine Glucose >=1000 H 07/22/17 2210: Anion Gap 14, Estimated GFR 48 L, BUN/Creatinine Ratio 30.9 H, Glucose 539 *H, Hemoglobin A1c 8.7 H, Calcium 9.9, Total Bilirubin 0.4, AST 10 L, ALT 19, Alkaline Phosphatase 78, Troponin I < 0.01, Total Protein 7.1, Albumin 4.0, Globulin 3.1, Albumin/Globulin Ratio 1.3, Vitamin B12 > 1000 H, 25-OH Vitamin D Total 24.9 L, Folate > 20.0 H, CBC w Diff NO MAN DIFF REQ, RBC 3.67 L, MCV 86.4, MCH 28.7, MCHC 33.2, RDW 14.2, MPV 7.6, Gran % 88.6 H, Lymphocytes % 5.0 L, Monocytes % 5.7, Eosinophils % 0.7, Basophils % 0, Absolute Granulocytes 11.6 H, Absolute Lymphocytes 0.7 L, Absolute Monocytes 0.7 H, Absolute Eosinophils 0.1, Absolute Basophils 0, Acetone Level NEGATIVE Microbiology 07/22 2249 URINE ROUT: Urine Culture - RES GRAM NEGATIVE RODS Vital Signs Date Time Temp Pulse Resp B/P B/P Pulse O2 O2 Flow FiO2 Mean Ox Delivery Rate 07/23 0827 122/68 07/23 0718 97.8 68 18 133/65 100 Room Air 07/23 0147 97.9 78 20 145/73 99 Room Air 07/22 2308 97.4 68 16 148/67 97 Room Air 07/22 2127 98.0 77 17 128/76 94 Room Air Intake & Output 07/23 1600 07/23 0800 07/23 0000 Intake Total 1540 0 Output Total Balance 1540 0 Intake, IV 1300 Intake, Oral 240 0 Patient 112 lb Weight Weight Bed scale Measurement Method
[2017-07-23] MEDS ORDERED: BREO ELLIPTA 11 EACH INH (12:55)
[2017-07-23 14:24] VITALS: BP 100/42
[2017-07-23 16:01] VITALS: BP 116/62
--- NOTE | 2017-07-23 18:01 | Cons- Rheumatology ---
General Information and HPI Consulting Request Date of Consult: 07/23/17 Requested By: Celena DEL VALLE,Sivakumar Reason for Consult: Evaluate for possible temporal arteritis Source of Information: patient, family Exam Limitations: no limitations History of Present Illness: This is a 77-year-old type II diabetic who was admitted to the hospital with uncontrolled diabetes. I'm asked to see her in rheumatologic consultation because of Dr. Allison's suspicion that she may have giant cell arteritis. Approximate 10 days ago the patient had bitemporal headaches for which she saw Dr. Allison. He had ordered a sedimentation rate which was markedly elevated at 101 and he suspected temporal arteritis. She was begun on 60 mg prednisone and sent to see Dr. Hunt an category development analyst. They Dr. Hunt did not strongly suspect temporal arteritis but during this time she began feeling weak and dizzy and was found yesterday to have a blood sugar of over 500 and she was admitted to the hospital. Patient denied fever jaw claudication or scalp tenderness. She also denies symptoms of PMR such as proximal muscle aching. She has been having some posterior and left sided rib discomfort however. Allergies/Medications Allergies: Coded Allergies: erythromycin base (Intermediate, PALPITATIONS 06/29/15) Home Med List: Aspirin (Aspirin*) 81 MG TAB.CHEW 1 TAB PO DAILY HEART HEALTH (Reported) Cholecalciferol (Vitamin D3) (Vitamin D3) 1,000 UNIT CAPSULE 1 CAP PO DAILY BONE STRENGTH (Reported) Cyanocobalamin (Vitamin B-12) 1,000 MCG TABLET 500 MG PO DAILY HEART HEALTH ( Reported) Diltiazem HCl (Cardizem Cd) 300 MG CAP.ER.24H 1 CAP PO DAILY VENTRICULAR ECTOPY (Reported) Ezetimibe (Zetia) 10 MG TABLET 1 TAB PO DAILY HLP (Reported) Fluticasone/Vilanterol (Breo Ellipta 100-25 Mcg INH) 100 MCG-25 MCG/DOSE BLST.W.DEV 2 PUFF INH DAILY PRN SOB (Reported) Levothyroxine Sodium (Synthroid) 100 MCG TABLET 1 TAB PO DAILY HYPOTHYRODISM (Reported) Metformin HCl (Glucophage) 1,000 MG TABLET 1 TAB PO BID DM (Reported) Metoprolol Succinate 100 MG TAB.ER.24H 1 TAB PO DAILY HTN (Reported) Montelukast Sodium 10 MG TABLET 1 TAB PO DAILY ALLERGIES (Reported) Omeprazole 20 MG CAPSULE.DR 1 CAP PO DAILY ACID REFLUX (Reported) Sodium Bicarbonate 650 MG TABLET 1 TAB PO BID VITAMIN SUPPORT (Reported) Current Medications: Current Medications Sig/Liliana Start time Last Medication Dose Route Stop Time Status Admin Acetaminophen 325 MG Q6P PRN 07/23 0245 AC PO Aspirin 81 MG DAILY 07/23 0900 AC 07/23 PO 0827 Budesonide/ 2 PUF BID 07/23 2100 AC Formoterol Fumarate INH Diltiazem HCl 300 MG DAILY 07/23 0900 AC 07/23 PO 0828 Enoxaparin Sodium 40 MG DAILY 07/23 0900 AC 07/23 SC 0828 Ezetimibe 10 MG DAILY 07/23 0900 AC 07/23 PO 0827 Insulin Aspart 0 TIDAC/HS 07/23 1200 AC 07/23 SC 1706 Insulin Aspart 0 TIDAC 07/23 0800 CAN SC Insulin Aspart 0 TIDAC 07/23 0800 DC 07/23 SC 0827 Insulin Detemir 10 UNITS DAILY 07/24 0900 AC SC Insulin Detemir 5 UNITS ONCE ONE 07/23 1045 DC 07/23 SC 07/23 1046 1208 Insulin Detemir 10 UNITS DAILY 07/23 1028 DC SC Insulin Detemir 5 UNITS DAILY 07/23 0900 DC 07/23 SC 0827 Levothyroxine Sodium 0.1 MG DAILY AC 07/23 0700 AC 07/23 PO 0630 Metoprolol Succinate 100 MG DAILY 07/23 0900 AC 07/23 PO 0827 Omeprazole 20 MG DAILY AC 07/23 0700 AC 07/23 PO 0630 Patient Medication 1 ED ONE ONE 07/23 1700 DC 07/23 Teaching ED 07/23 1701 1707 Prednisone 40 MG DAILY 07/23 0900 AC 07/23 PO 0827 Sodium Chloride 1,000 ML .Q10H 07/23 0245 DC 07/23 IV 07/23 1329 0257 Sodium Chloride 1,000 ML BOLUS ONE 07/22 2315 DC 07/22 IV 07/23 0014 2329 Sodium Chloride 1,000 ML BOLUS ONE 07/22 2315 DC 07/23 IV 07/23 0014 0012 Review of Systems Review of Systems: Again no fever rash scalp tenderness or jaw claudication.No tender or inflamed joints. Past History Travel History Traveled to [place] past 21 day No Medical History Blood Transfusion Hx: No Neurological: NONE EENT: glaucoma Cardiovascular: hypertension, HIGH CHOLESTEROL Respiratory: asthma Gastrointestinal: GERD Hepatic: NONE Renal: NONE Musculoskeletal: NONE Psychiatric: NONE Endocrine: diabetes, HYPOTHYROIDISM Blood Disorders: NONE Cancer(s): NONE OUTGOING INSPECTOR/Reproductive: NONE Surgical History Surgical History: hysterectomy Psychosocial History Where Do You Live? Home Services at Home: None Smoking Status: Former Smoker ETOH Use: denies use Illicit Drug Use: denies illicit drug use Exam & Diagnostic Data Vital Signs and I&O Vital Signs Date Time Temp Pulse Resp B/P B/P Pulse O2 O2 Flow FiO2 Mean Ox Delivery Rate 07/23 1601 116/62 07/23 1424 98.6 72 20 100/42 98 Room Air 07/23 0827 122/68 07/23 0718 97.8 68 18 133/65 100 Room Air 07/23 0147 97.9 78 20 145/73 99 Room Air 07/22 2308 97.4 68 16 148/67 97 Room Air 07/22 2127 98.0 77 17 128/76 94 Room Air Intake & Output 07/23 1600 07/23 0800 07/23 0000 Intake Total 1300 1540 0 Output Total Balance 1300 1540 0 Intake, IV 800 1300 Intake, Oral 500 240 0 Patient 112 lb Weight Weight Bed scale Measurement Method Physical Exam: On examination she is a well-developed well-nourished thin lady feeling quite comfortable. Examination of her scalp reveals no temporal artery induration or tenderness. Her conjunctiva are slightly pale. She has some dryness and swelling of her tongue. There was no lymphadenopathy in her neck. Also joints exhibit good range of motion with subtle osteoarthritic changes but no inflamed joints. She fully abducts her arms above her shoulders and is able to straight leg raise actively without discomfort. Assessment/Plan Assessment: Overall my index of suspicion for giant cell arteritis is quite low. Initial sedimentation rate of 101 is now down to 40 as of today. This is rather a large drop for being on prednisone for just one week. I have no explanation as to why her sedimentation rate was 101 originally. Obviously the high dose of steroids has had a deleterious effect on her diabetes a malignancy could certainly cause an elevated sedimentation rate but again the drop is rather dramatic. Recommendations: I would discontinue the steroids at this point I do not believe a temporal artery biopsy would be abnormal at this point firstly because I don't think she had it to begin with and secondly she has had 1 week of therapy. In view of her posterior chest pain CAT scan of her chest in view of her smoking history would be justified. I would follow her sedimentation rate up in one week as an outpatient and if her headache resumes would reconsider getting a biopsy RAI. Consult Acknowledgment - Thank you for your consult request.
[2017-07-23 21:04] VITALS: BP 118/58
[2017-07-24 05:45] VITALS: BP 120/58
--- NOTE | 2017-07-24 07:32 | PN- Diabetes ---
Assessment/Plan Diabetes Assessment: Feels about the same. She has no headache. Prednisone was stopped this morning. Therefore the patient should require much less insulin today. The patient has had several CT scans of her chest and is followed by Dr. Hawkins. Patient has become more anemic with her hematocrit now 27.6. She has had some chronic anemia since 2013. She has never seen a groundwater programs director. She was on iron at one point but did not respond to iron. She has had a colonoscopy by Dr. Aguilar. Plan: Suggest continue Levemir 10 units once a day. Since the prednisone has been stopped we need to reduce her sliding scale NovoLog before meals. Sliding scale NovoLog before meals should be 80-150 give 4 units NovoLog, 151-200 give 5 units NovoLog, 201-250 give 6 units NovoLog, 251 -300 give 7 units NovoLog, 301 04/06/1948 give 8 units NovoLog, 351-400 give 9 units NovoLog. Bedtime sliding scale NovoLog should be continued. The patient's stools should be checked for occult blood. Subjective Subjective: Has no headache Review of Systems Constitutional: Denies: chills, fever. Cardiovascular: Denies: chest pain. Respiratory: Denies: cough, short of breath. Gastrointestinal: Denies: abdominal pain, nausea, vomiting. Musculoskeletal: Denies: back pain. Skin: Reports: no symptoms. Objective Last 24 Hrs of Vital Signs/I&O Vital Signs Date Time Temp Pulse Resp B/P B/P Pulse O2 O2 Flow FiO2 Mean Ox Delivery Rate 07/24 0445 98.0 70 20 120/58 98 Room Air 07/24 2103 97.5 57 18 118/58 100 07/23 1601 116/07/23 1424 98.6 72 20 100/42 98 Room Air 07/23 0827 122/68 Intake & Output 07/24 0800 07/24 0000 07/23 1600 Intake Total 60 1300 Output Total Balance 60 1300 Intake, IV 800 Intake, Oral 60 500 Number 0 Bowel Movements Vital Signs Date Time Temp Pulse Resp B/P B/P Pulse O2 O2 Flow FiO2 Mean Ox Delivery Rate 07/24 0545 98.0 70 20 120/58 98 Room Air 07/24 2103 97.5 57 18 118/58 100 07/23 1601 116/62 07/23 1424 98.6 72 20 100/42 98 Room Air 07/23 0827 122/68 Intake & Output 07/24 0800 07/24 0000 07/23 1600 Intake Total 60 1300 Output Total Balance 60 1300 Intake, IV 800 Intake, Oral 60 500 Number 0 Bowel Movements Physical Exam General Appearance: alert, awake, comfortable Head: normal appearance Respiratory: normal breath sounds Cardiovascular: regular rate/rhythm Abdomen: normal bowel sounds Extremities: normal inspection Current Medications: Current Medications Sig/Liliana Start time Last Medication Dose Route Stop Time Status Admin Acetaminophen 650 MG Q6P PRN 07/23 2014 AC PO Acetaminophen 325 MG ONCE ONE 07/23 2014 DC 07/23 PO 07/23 Acetaminophen 325 MG Q6P PRN 07/23 0245 DC 07/23 PO 191 Aspirin 81 MG DAILY 07/23 09 AC 07/23 PO 0827 Budesonide/ 2 PUF BID 07/23 2100 AC 07/23 Formoterol Fumarate INH 191 Diltiazem HCl 300 MG DAILY 07/23 0900 AC 07/23 PO 0828 Enoxaparin Sodium 40 MG DAILY 07/23 0900 AC 07/23 SC 0828 Ezetimibe 10 MG DAILY 07/23 0900 AC 07/23 PO 0827 Insulin Aspart 0 TIDAC/HS 07/23 1200 AC 07/23 SC 1706 Insulin Aspart 0 TIDAC 07/23 0800 DC 07/23 SC 0827 Insulin Detemir 10 UNITS DAILY 07/24 0900 SC Insulin Detemir 5 UNITS ONCE ONE 07/23 1045 DC 07/23 SC 07/23 1046 1208 Insulin Detemir 10 UNITS DAILY 07/23 1028 DC SC Insulin Detemir 5 UNITS DAILY 07/23 0900 [place] 07/23 SC 0827 Levothyroxine Sodium 0.1 MG DAILY AC 07/23 0700 AC 07/24 PO 0542 Metoprolol Succinate 100 MG DAILY 07/23 0900 AC 07/23 PO 0827 Omeprazole 20 MG DAILY AC 07/23 0700 AC 07/24 PO 0542 Patient Medication 1 ED ONE ONE 07/23 1700 DC 07/23 Teaching ED 07/23 1701 1707 Prednisone 40 MG DAILY 07/23 0900 [place] 07/23 PO 0827 Sodium Chloride 1,000 ML .Q10H 07/23 0245 DC 07/23 IV 07/23 1329 0257 Findings Pertinent Lab/Aries Results: Laboratory Tests 07/23 07/23 07/23 0740 0740 0600 Chemistry Sodium (137 - 145 mmol/L) 136 L Potassium (3.5 - 5.1 mmol/L) 4.1 Chloride (98 - 107 mmol/L) 107 Carbon Dioxide (22 - 30 mmol/L) 19 L Anion Gap (5 - 16) 10 BUN (7 - 17 mg/dL) 27 H Creatinine (0.5 - 1.0 mg/dL) 0.9 Estimated GFR (>60 ml/min) > 60 BUN/Creatinine Ratio (7 - 25 %) 30.0 H TSH (0.270 - 4.200 uIU/mL) 0.523 Free T4 (0.78 - 2.44 ng/dL) 1.32 Hematology CBC w Diff NO MAN DIFF REQ WBC (4.8 - 10.8 /CUMM) 6.6 RBC (4.20 - 5.40 /CUMM) 3.24 L Hgb (12.0 - 16.0 G/DL) 9.3 L Hct (37 - 47 %) 27.6 L MCV (81.0 - 99.0 FL) 85.2 MCH (27.0 - 31.0 PG) 28.6 MCHC (33.0 - 37.0 G/DL) 33.6 RDW (11.5 - 14.5 %) 14.1 Plt Count (130 - 400 /CUMM) 228 MPV (7.4 - 10.4 FL) 7.8 Gran % (42.2 - 75.2 %) 84.2 H Lymphocytes % (20.5 - 51.1 %) 8.9 L Monocytes % (1.7 - 9.3 %) 6.5 Eosinophils % (0 - 5 %) 0.4 Basophils % (0.0 - 2.0 %) 0 Absolute Granulocytes (1.4 - 6.5 /CUMM) 5.6 Absolute Lymphocytes (1.2 - 3.4 /CUMM) 0.6 L Absolute Monocytes (0.10 - 0.60 /CUMM) 0.4 Absolute Eosinophils (0.0 - 0.7 /CUMM) 0 Absolute Basophils (0.0 - 0.2 /CUMM) 0 ESR Westergren (0 - 20 MM) 40 H Immunology ANCA Pending Thyroglobulin Antibody (< 61 U/mL) 17 Thyroid Peroxidase Ab (< 61 U/mL) < 28 07/22 07/22 2250 2210 Chemistry Sodium (137 - 145 mmol/L) 126 L Potassium (3.5 - 5.1 mmol/L) 4.5 Chloride (98 - 107 mmol/L) 94 L Carbon Dioxide (22 - 30 mmol/L) 18 L Anion Gap (5 - 16) 14 BUN (7 - 17 mg/dL) 34 H Creatinine (0.5 - 1.0 mg/dL) 1.1 H Estimated GFR (>60 ml/min) 48 L BUN/Creatinine Ratio (7 - 25 %) 30.9 H Glucose (65 - 99 mg/dL) 539 *H Hemoglobin A1c (4.2 - 5.8 %) 8.7 H Calcium (8.4 - 10.2 mg/dL) 9.9 Total Bilirubin (0.2 - 1.3 mg/dL) 0.4 AST (14 - 36 U/L) 10 L ALT (9 - 52 U/L) 19 Alkaline Phosphatase (<127 U/L) 78 Troponin I (< 0.11 ng/ml) < 0.01 Total Protein (6.3 - 8.2 g/dL) 7.1 Albumin (3.5 - 5.0 g/dL) 4.0 Globulin (1.9 - 4.2 gm/dL) 3.1 Albumin/Globulin Ratio (1.1 - 2.2 %) 1.3 Vitamin B12 (239 - 931 pg/mL) > 1000 H 25-OH Vitamin D Total (30 - 100 ng/ml) 24.9 L Folate (2.76 - 20.0 ng/mL) > 20.0 H Hematology CBC w Diff NO MAN DIFF REQ WBC (4.8 - 10.8 /CUMM) 13.1 H RBC (4.20 - 5.40 /CUMM) 3.67 L Hgb (12.0 - 16.0 G/DL) 10.5 L Hct (37 - 47 %) 31.7 L MCV (81.0 - 99.0 FL) 86.4 MCH (27.0 - 31.0 PG) 28.7 MCHC (33.0 - 37.0 G/DL) 33.2 RDW (11.5 - 14.5 %) 14.2 Plt Count (130 - 400 /CUMM) 277 MPV (7.4 - 10.4 FL) 7.6 Gran % (42.2 - 75.2 %) 88.6 H Lymphocytes % (20.5 - 51.1 %) 5.0 L Monocytes % (1.7 - 9.3 %) 5.7 Eosinophils % (0 - 5 %) 0.7 Basophils % (0.0 - 2.0 %) 0 Absolute Granulocytes (1.4 - 6.5 /CUMM) 11.6 H Absolute Lymphocytes (1.2 - 3.4 /CUMM) 0.7 L Absolute Monocytes (0.10 - 0.60 /CUMM) 0.7 H Absolute Eosinophils (0.0 - 0.7 /CUMM) 0.1 Absolute Basophils (0.0 - 0.2 /CUMM) 0 Toxicology Acetone Level (NEGATIVE) NEGATIVE Urines Urine Color (YEL,AMB,STR) YEL Urine Clarity (CLEAR) CLEAR Urine pH (5.0 - 8.0) 6.5 Ur Specific [place] (1.001 - 1.035) 1.010 Urine Protein (NEG,<30 MG/DL) TRACE H Urine Ketones (NEG) NEG Urine Nitrite (NEG) NEG Urine Bilirubin (NEG) NEG Urine Urobilinogen (0.1 - 1.0 EU/dl) 0.2 Ur Leukocyte Esterase (NEG) SMALL H Ur Microscopic SEDIMENT EXAMINED Urine WBC (0 - 2 /HPF) 10-15 H Urine Bacteria (NEG/NONE) MOD H Urine Hemoglobin (NEG) NEG Urine Glucose (N MG/DL) >=1000 H
--- NOTE | 2017-07-24 11:09 | CT SCAN REPORT ---
EXAMINATION: CT CHEST WITHOUT CONTRAST CLINICAL INFORMATION: Posterior chest pain and elevated ESR level. Lung nodule follow-up. COMPARISON: Multiple prior chest CT exams, including 07/08/2014 and 11/29/2016. TECHNIQUE: Multidetector volumetric CT imaging of the chest was performed. Axial MIP volume rendering provided. Sagittal and coronal reformatted images were obtained. DLP: 189.21 mGy-cm FINDINGS: LUNGS AND PLEURA: Trachea and central airways are widely patent and normal in caliber. [id number] centrilobular emphysema has an upper lobe predominance. Multiple old small bilateral nodular opacities, and some of the nodular foci represent mucous plugging within peripheral bronchi. Within the posterior segment of the right upper lobe near the level of the minor fissure, laterally, there are persistent and increased peripheral, branching opacities of mucus plugging and/or inflammation of small airways with small tree-in-bud nodules, including a nodular focus measuring approximately 0.3 cm AP (image 209, series 4). The noncalcified, subcentimeter sized nodules in the right lower lobe remain unchanged compared to 07/08/2014. No pulmonary mass, consolidation or pleural effusion. MEDIASTINUM: The heart size is normal. Atherosclerotic calcifications of coronary arteries. Atherosclerosis of the thoracic aorta without aneurysm. Pulmonary arteries are normal in caliber. No pericardial effusion. Esophagus has normal wall thickness. No mediastinal mass. LYMPHATICS: No pathologic sized axillary, hilar or mediastinal lymph nodes. UPPER ABDOMEN: Atherosclerosis of the visualized abdominal aorta and left renal artery branches. Gallbladder is surgically absent. SKELETAL AND CHEST WALL: Bones appear diffusely osteopenic. No acute findings in the degenerated spine. No aggressive osseous lesion. IMPRESSION: 1. [id number] pulmonary emphysema. 2. Multiple old scattered pulmonary nodules, including nodular foci that represent mucous plugging in peripheral bronchi. There is mild increased tree-in-bud nodularity in the posterior segment of the right upper lobe with increased size of a 0.3 cm nodular focus in this area, likely due to ongoing inflammation or infection of small airways. The nodules within the right lower lobe remain unchanged compared to 07/08/2014.
[2017-07-24] MEDS ORDERED: LEVEMIR100 UNIT/1 SC ×2 (11:42→15:20)
--- NOTE | 2017-07-24 11:45 | Patient Discharge Instructions ---
Discharge Instructions General Discharge Information You were seen/treated for: Elevated blood sugars Special Instructions: -Please follow-up with your primary care doctor within 1 week of discharge -Please follow-up with tow bar driver Dr. Osuna after discharge -Please follow-up with Dr. Tucker load test mechanic after discharge -Please follow-up with your slot floor person Dr. Hawkins after discharge Diet Recommended Diet: Diabetic Activity Activity Self Limited: Yes Acute Coronary Syndrome Inclusion Criteria At DC or during hospital stay patient has or had the following: ACS DIAGNOSIS No Discharge Core Measures Meds if any: Prescribed or Continued at Discharge Meds if any: NOT Prescribed or Continued at Discharge Congestive Heart Failure Inclusion Criteria At DC or during hospital stay patient has or had the following: CHF DIAGNOSIS No Discharge Core Measures Meds if any: Prescribed or Continued at Discharge Meds if any: NOT Prescribed or Continued at Discharge Cerebrovascular accident Inclusion Criteria At DC or during hospital stay patient has or had the following: CVA/TIA Diagnosis No Discharge Core Measures Meds if any: Prescribed or Continued at Discharge Meds if any: NOT Prescribed or Continued at Discharge Venous thromboembolism Inclusion Criteria VTE Diagnosis No VTE Type NONE VTE Confirmed by (Test) NONE Discharge Core Measures - Per Current guidelines, there needs to be overlap - treatment for the first 5 days of Warfarin therapy. - If discharged on Warfarin prior to 5 days of - overlap therapy, the patient will need to be - assessed for post discharge needs including - *Post discharge parental anticoagulation - *Warfarin and/or parental anticoagulation education - *Follow up date to check INR post discharge At least 5 days overlap therapy as Inpatient No Meds if any: Prescribed or Continued at Discharge Note: Overlap Therapy is Warfarin and Anticoagulant Meds if any: NOT Prescribed or Continued at Discharge
--- NOTE | 2017-07-24 13:17 | PN- Att Addend ---
Attending Addendum Attending Brief Note Patient seen and examined. Plan of care discussed with the medical team and the patient. Available lab work and radiology test reports were reviewed. Patient denies any headache and does not report any blurred vision today. Denies any recent nausea vomiting fever chills or difficulty breathing. Exam: General: Patient awake alert oriented without any distress CVS: S1 plus S2 without any murmur or gallops Chest: Few scattered crepitation without any wheeze. There is no respiratory distress. Abdomen: Soft non-tender, bowel sound present, no guarding or rebound SIMONIZER: Awake alert oriented without any focal neuro deficit and follows commands appropriately; no temporal tenderness is noted Extremities: No edema; no clubbing or cyanosis noted Assessment * Suspected temporal arteritis- rheumatology consult note noted. Rheumatology did not feel the patient needs temporal artery biopsies and prednisone was stopped * Hyperglycemia and uncontrolled diabetes improving * History of hypertension * History of closed-angle glaucoma * History of hypothyroidism * Hyponatremia improved * Acute renal failure- resolved * Metabolic acidosis * History of pulmonary nodules- repeat CT was done and shows slight worsening in tree-in-bud appearance in one area and probably nodules in the right lower lobe remain unchanged Plan * Continue insulin siding scale and Levemir as suggested by endocrinology * Patient to follow-up with Rheumatology * Patient stable for discharge home today; family was at the bedside this morning. Family was provided information about patient diagnosis and follow-up. Current Medications Sig/Liliana Start time Last Medication Dose Route Stop Time Status Admin Acetaminophen 650 MG Q6P PRN 07/23 2014 AC PO Acetaminophen 325 MG ONCE ONE 07/23 2014 DC 07/23 PO 07/23 Acetaminophen 325 MG Q6P PRN 07/23 0245 DC 07/23 PO 1918 Aspirin 81 MG DAILY 07/23 899 AC 07/24 PO 08 Budesonide/ 2 PUF BID 07/23 2100 AC 07/24 Formoterol Fumarate INH 821 Diltiazem HCl 300 MG DAILY 07/23 899 AC 07/24 PO 08 Enoxaparin Sodium 40 MG DAILY 07/23 899 AC 07/24 SC 08 Ezetimibe 10 MG DAILY 07/23 899 AC 07/24 PO 08 Insulin Aspart 0 TIDAC/HS 07/23 1200 AC 07/24 SC 08 Insulin Detemir 10 UNITS DAILY 07/24 899 AC 07/24 SC 0822 Levothyroxine Sodium 0.1 MG DAILY AC 07/23 0700 AC 07/24 PO 0542 Metoprolol Succinate 100 MG DAILY 07/23 0900 AC 07/24 PO 0822 Omeprazole 20 MG DAILY AC 07/23 0700 07/24 PO 0542 Patient Medication 1 ED ONE ONE 07/24 1145 [place] Teaching ED 07/24 1146 Patient Medication 1 ED ONE ONE 07/23 1700 DC 07/23 [facility] ED 07/23 1701 1707 Potassium Chloride 40 MEQ ONCE ONE 07/24 1145 DC PO 07/24 1146 Prednisone 40 MG DAILY 07/23 0900 [place] 07/23 PO 0827 Sodium Chloride 1,000 ML .Q10H 07/23 0245 DC 07/23 IV 07/23 1329 0257 Laboratory Tests 07/24/17 0740: Anion Gap 12, Estimated GFR 54 L, BUN/Creatinine Ratio 18.0 07/23/17 0740: ESR Westergren 40 H 07/23/17 0740: Anion Gap 10, Estimated GFR > 60, BUN/Creatinine Ratio 30.0 H, TSH 0.523, Free T4 1.32, CBC w Diff NO MAN DIFF REQ, RBC 3.24 L, MCV 85.2, MCH 28.6, MCHC 33.6, RDW 14.1, MPV 7.8, Gran % 84.2 H, Lymphocytes % 8.9 L, Monocytes % 6.5, Eosinophils % 0.4, Basophils % 0, Absolute Granulocytes 5.6, Absolute Lymphocytes 0.6 L, Absolute Monocytes 0.4, Absolute Eosinophils 0, Absolute Basophils 0, Thyroglobulin Antibody 17, Thyroid Peroxidase Ab < 28 07/23/17 0600: ANCA Pending 07/22/17 2250: Urine Color YEL, Urine Clarity CLEAR, Urine pH 6.5, Ur Specific [place] 1.010, Urine Protein TRACE H, Urine Ketones NEG, Urine Nitrite NEG, Urine Bilirubin NEG, Urine Urobilinogen 0.2, Ur Leukocyte Esterase SMALL H, Ur Microscopic SEDIMENT EXAMINED, Urine WBC 10-15 H, Urine Bacteria MOD H, Urine Hemoglobin NEG, Urine Glucose >=1000 H 07/22/17 2210: Anion Gap 14, Estimated GFR 48 L, BUN/Creatinine Ratio 30.9 H, Glucose 539 *H, Hemoglobin A1c 8.7 H, Calcium 9.9, Total Bilirubin 0.4, AST 10 L, ALT 19, Alkaline Phosphatase 78, Troponin I < 0.01, Total Protein 7.1, Albumin 4.0, Globulin 3.1, Albumin/Globulin Ratio 1.3, Vitamin B12 > 1000 H, 25-OH Vitamin D Total 24.9 L, Folate > 20.0 H, CBC w Diff NO MAN DIFF REQ, RBC 3.67 L, MCV 86.4, MCH 28.7, MCHC 33.2, RDW 14.2, MPV 7.6, Gran % 88.6 H, Lymphocytes % 5.0 L, Monocytes % 5.7, Eosinophils % 0.7, Basophils % 0, Absolute Granulocytes 11.6 H, Absolute Lymphocytes 0.7 L, Absolute Monocytes 0.7 H, Absolute Eosinophils 0.1, Absolute Basophils 0, Acetone Level NEGATIVE Microbiology 07/220 URINE ROUT: Urine Culture - COMP ENTEROBACTER AEROGENES Vital Signs Date Time Temp Pulse Resp B/P B/P Pulse O2 O2 Flow FiO2 Mean Ox Delivery Rate 07/24 0822 70 120/58 07/24 0545 98.0 70 20 120/58 98 Room Air 07/23 2104 97.5 57 18 118/58 100 07/23 1601 116/62 07/23 1424 98.6 72 20 100/42 98 Room Air Intake & Output 07/24 1600 07/24 0800 07/24 0000 Intake Total 60 Output Total Balance 60 Intake, Oral 60 Number 0 Bowel Movements Total time spent in preparation for discharge plan, patient education, and CMR preparation was 35 minutes.
[2017-07-24 14:25] VITALS: BP 133/48
--- NOTE | 2017-07-24 17:50 | PN- Housestaff ---
Subjective Follow-up For: Hypweglycemia Subjective: Seen and examined. Resting comfortably. Offers no complaints. Stable to be discharged home today. Review of Systems Constitutional: Reports: see HPI. Objective Last 24 Hrs of Vital Signs/I&O Vital Signs Date Time Temp Pulse Resp B/P B/P Pulse O2 O2 Flow FiO2 Mean Ox Delivery Rate 07/24 1425 98.3 67 20 133/48 100 Room Air 07/24 0822 70 120/58 07/24 0545 98.0 70 20 120/58 98 Room Air 07/23 2104 97.5 57 18 118/58 100 Intake & Output 07/24 1600 07/24 0800 07/24 0000 Intake Total 1800 60 Output Total Balance 1800 60 Intake, IV 0 Intake, Oral 1800 60 Number 0 0 Bowel Movements Physical Exam General Appearance: Alert, Oriented X3, Cooperative Cardiovascular: Normal S1, Normal S2 Lungs: Clear to Auscultation, Normal Air Movement Abdomen: Normal Bowel Sounds, Soft, No Tenderness Current Medications: Current Medications Sig/Liliana Start time Last Medication Dose Route Stop Time Status Admin Acetaminophen 650 MG Q6P PRN 07/23 2014 DCD PO Acetaminophen 325 MG ONCE ONE 07/23 2014 DC 07/23 PO 07/23 Acetaminophen 325 MG Q6P PRN 07/23 0245 DC 07/23 PO 1918 Aspirin 81 MG DAILY 07/23 09 DCD 07/24 PO 0823 Budesonide/ 2 PUF BID 07/23 2100 DCD 07/24 Formoterol Fumarate INH 0822 Diltiazem HCl 300 MG DAILY 07/23 09 DCD 07/24 PO 0822 Enoxaparin Sodium 40 MG DAILY 07/23 09 DCD 07/24 SC 0822 Ezetimibe 10 MG DAILY 07/23 09 DCD 07/24 PO 0822 Insulin Aspart 0 TIDAC/HS 07/23 1200 DCD 07/24 SC 1439 Insulin Detemir 10 UNITS DAILY 07/24 09 DCD 07/24 SC 0822 Levothyroxine Sodium 0.1 MG DAILY AC 07/23 07 DCD 07/24 PO 0542 Metoprolol Succinate 100 MG DAILY 07/23 09 DCD 07/24 PO 0822 Omeprazole 20 MG DAILY AC 07/23 07 DCD 07/24 PO 0542 Patient Medication 1 ED ONE ONE 07/24 1145 DC Teaching ED 07/24 1146 Potassium Chloride 40 MEQ ONCE ONE 07/24 1145 DC PO 07/24 1146 Prednisone 40 MG DAILY 07/23 0900 DC 07/23 PO 0827 Last 24 Hrs of Lab/Aries Results Last 24 Hrs of Labs/Mics: Laboratory Tests 07/24/17 0740: Anion Gap 12, Estimated GFR 54 L, BUN/Creatinine Ratio 18.0 Assessment/Plan Assessment: 77-year-old female with PMH DM, HTN, HLD, asthma/COPD, hypothyroidism, lung nodules presented in ER for hyperglycemia. She was recently started on prednisone with suspicion of temporal arteritis. She is being treated and evaluated for following conditions #Hyperglycemia and uncontrolled diabetes Patient presented with a complaint of fatigue and blurred vision with her blood sugar running in 500s. -HbA1C 8.7 -Patient's blood sugar has been trending down -She is being discharged on Levemir 10 units daily and metformin 1000 units twice a day with instructions to follow-up with Dr. Osuna within 1 week of discharge #Suspected temporal arteritis Patient has been evaluated by vascular conference translator he does not believe that patient needs to be on steroids and that the suspicion of giant cell temporal arteritis is very low -Outpatient follow-up with Dr. Tucker -Outpatient monitoring R -We are going to defer the temporal artery biopsy for now if her headaches resume that should be reconsidered #History of hypothyroidism Patient is currently taking levothyroxine 100mcg -Endocrinology on board -TSH and free T4 within normal limits -Anti-TPO anti-peroxidase antibody results WNL #Mild hypokalemia -Repleted #Leukocytosis secondary to prednisone -Continue to monitor -Resolved #Pseudohyponatremia in setting of hyperglycemia -Continue to monitor -Resolved #History of lung nodules The patient has waxing and waning pulmonary nodules which could suggest an inflammatory process in her chest as a cause of her elevated sed rate -We will check ANCA -We're going to repeat CAT scan on recommendations of Dr. Tucker -Outpatient follow-up with Dr. Hawkins #History of ventricular ectopy and HTN, COPD/asthma, HLD, GERD -Continue Cardizem and metoprolol, Breo Ellipta, Zetia, omeprazole #Diabetic Diet/DVT prophylaxis with Lovenox/FC Problem List: 1. Hypokalemia Pain Ratin Pain Location: none Pain Goal: Pain 4 or less Pain Plan: prn Tomorrow's Labs & Rationales: none
--- NOTE | 2017-07-24 17:57 | Discharge Summary ---
Visit Information Visit Dates Admission Date: 07/22/17 Discharge Date: 07/24/17 Hospital Course Course Attending Physician: Sivakumar Dallas MD Primary Care Physician: Dre Miramontes MD Hospital Course: The patient is 77-year-old female with past medical history of DM, HTN, HLD, asthma/COPD, hypothyroidism, lung nodules. The patient presented to [facility] ED on 07/22 with complaint of weakness, blurred vision and high blood sugars. The patient was recently started on a prednisone taper by her PCP with suspicion of temporal arteritis in the setting of elevated ESR of 100. Her metformin dose was increased from 1000 mg once a day to twice a day by her PCP in setting of her elevated blood sugars. Despite that patient's blood sugars remain persistently high in 500 range hence prompting a visit to [facility] ED. Vital signs on presentation were within normal limits on examination there was no focal neurological deficit. Admission labs were positive for leukocytosis, H / H 10.5/31.7, hyponatremia 126, creatinine 1.1 and glucose 539, ESR 40 The patient was admitted to general medicine floor for treatment of Hyperglycemia with underlying DM, worsened due to prednisone. HbA1c 8.7. Patient was evaluated by group leader wafer polishing Dr. Osuna. Her blood sugars were managed by starting patient on IV hydration with normal saline, insulin sliding scale and Levemir 10 units once a day. Her blood sugars subsequently came down ranging from 150s to 200s and blurriness of vision improved. For suspicion of temporal arteritis Tim Tucker MD gallery director was consulted, who believed that overall index of suspicion for giant cell arteritis is quite low and a drop of ESR from 100 to 40 was dramatic for being on steroid for just one week. The patient reported resolution of headaches even before starting the prednisone Hence on his recommendation steroids were discontinued and we did not pursue temporal artery biopsy. Leukocytosis resolved and was likely secondary to prednisone use, there was no obvious source of infection and patient remained afebrile during her stay. The hyponatremia was likely pseudo-hyponatremia in setting of hyperglycemia which has resolved. Patient has history of hypothyroidism and her TSH and free T4 were within normal limits in TTP) and antiperoxidase antibodies were ordered on group leader wafer polishing recommendations however were negative her home dose of levothyroxine was continued. Patient also has history of lung nodules which have waxing and waning nature which could suggest an inflammatory process in her chest as a cause of her elevated ESR. ANCA antibody was checked which was negative CT scan of the chest was repeated which showed mild increase in one of the nodules otherwise unremarkable and unchanged from the last one she CT scan reports for more detail.She was also found to have mild hypokalemia of 3.4 and her potassium was repleted. Patient was also found to be anemic which appears to be chronic in nature. Her H/H remained stable. She had Mild HENRY on admisission with cr of 1.1 howerever resolved with hydration She was full code during her stay and her home medications Cardizem and metoprolol, Breo Ellipta, Zetia, omeprazole -Patient is being discharged on metformin 1000 twice a day and Levemir 30 units once a day (on endocrine recommendations) and will require follow-up of blood sugar by PCP and group leader wafer polishing. referral for Manuel Osuna MD has been provided. -Patient will also require rheumatological follow-up. Pt will see Dr. blake in 1 week for repeat ESR, and if headache returns, consider temporal artery biopsy -Patient will also require monitoring of K levels after discharge by PCP -Patient has history of chronic anemia and needs to be evaluated for possible etiologies which shouldbe pursued as an outpatient by PCP -Patient will also follow-up with Dr. Hawkins for lung nodules as an outpatient Allergies: Coded Allergies: erythromycin base (Intermediate, PALPITATIONS 06/29/15) Pertinent Lab Results: CT CHEST WITHOUT CONTRAST CLINICAL INFORMATION: Posterior chest pain and elevated ESR level. Lung nodule follow-up. COMPARISON: Multiple prior chest CT exams, including 07/08/2014 and 11/29/2016. TECHNIQUE: Multidetector volumetric CT imaging of the chest was performed. Axial MIP volume rendering provided. Sagittal and coronal reformatted images were obtained. DLP: 189.21 mGy-cm FINDINGS: LUNGS AND PLEURA: Trachea and central airways are widely patent and normal in caliber. Cmls-je-kcatzcyy centrilobular emphysema has an upper lobe predominance. Multiple old small bilateral nodular opacities, and some of the nodular foci represent mucous plugging within peripheral bronchi. Within the posterior segment of the right upper lobe near the level of the minor fissure, laterally, there are persistent and increased peripheral, branching opacities of mucus plugging and/or inflammation of small airways with small tree-in-bud nodules, including a nodular focus measuring approximately 0.3 cm AP (image 209, series 4). The noncalcified, subcentimeter sized nodules in the right lower lobe remain unchanged compared to 07/08/2014. No pulmonary mass, consolidation or pleural effusion. MEDIASTINUM: The heart size is normal. Atherosclerotic calcifications of coronary arteries. Atherosclerosis of the thoracic aorta without aneurysm. Pulmonary arteries are normal in caliber. No pericardial effusion. Esophagus has normal wall thickness. No mediastinal mass. LYMPHATICS: No pathologic sized axillary, hilar or mediastinal lymph nodes. UPPER ABDOMEN: Atherosclerosis of the visualized abdominal aorta and left renal artery branches. Gallbladder is surgically absent. SKELETAL AND CHEST WALL: Bones appear diffusely osteopenic. No acute findings in the degenerated spine. No aggressive osseous lesion. IMPRESSION: 1. Zvcg-rj-znsxvwxa pulmonary emphysema. 2. Multiple old scattered pulmonary nodules, including nodular foci that represent mucous plugging in peripheral bronchi. There is mild increased tree-in-bud nodularity in the posterior segment of the right upper lobe with increased size of a 0.3 cm nodular focus in this area, likely due to ongoing inflammation or infection of small airways. The nodules within the right lower lobe remain unchanged compared to 07/08/2014. Disposition Summary Disposition Principal Diagnosis: Hyperglycemia with underlying DM, worsened secondary to prednisone use Additional Diagnosis: history of lung nodules Discharge Disposition: home or self care Discharge Instructions General Discharge Information Code Status: Full Code Patient's Diet: As tolerated Patient's Activity: As tolerated Follow-Up Instructions/Appts: Follow-up with PCP, rheumatology, endocrinology and pulmonology Medications at Discharge Discharge Medications: Continue taking these medications: Levothyroxine Sodium (Synthroid) 100 MCG TABLET 1 Tablet ORAL DAILY Comments: Last Taken: 07/24/17 Time: 0600 AM Diltiazem HCl (Cardizem Cd) 300 MG CAP.ER.24H 1 Capsule ORAL DAILY Comments: Last Taken: 07/24/17 Time: 0830 AM Metoprolol Succinate (Metoprolol Succinate) 100 MG TAB.ER.24H 1 Tablet ORAL DAILY Comments: Last Taken: 07/24/17 Time: 0830 AM Ezetimibe (Zetia) 10 MG TABLET 1 Tablet ORAL DAILY Comments: Last Taken: 07/24/17 Time: 0830 AM Metformin HCl (Glucophage) 1,000 MG TABLET 1 Tablet ORAL TWICE DAILY Comments: NOT GIVEN IN HOSPITAL Aspirin (Aspirin*) 81 MG TAB.CHEW 1 Tablet ORAL DAILY Comments: Last Taken: 07/24/17 Time: 0830 AM Montelukast Sodium (Montelukast Sodium) 10 MG TABLET 1 Tablet ORAL DAILY Comments: NOT GIVEN IN HOSPITAL Cyanocobalamin (Vitamin B-12) 1,000 MCG TABLET 500 Milligram ORAL DAILY Comments: NOT GIVEN IN HOSPITAL Cholecalciferol (Vitamin D3) (Vitamin D3) 1,000 UNIT CAPSULE 1 Capsule ORAL DAILY Comments: NOT GIVEN IN HOSPITAL Omeprazole (Omeprazole) 20 MG CAPSULE.DR 1 Capsule ORAL DAILY Comments: Last Taken: 07/24/17 Time: 0600 AM Sodium Bicarbonate (Sodium Bicarbonate) 650 MG TABLET 1 Tablet ORAL TWICE DAILY Comments: NOT GIVEN IN HOSPITAL Fluticasone/Vilanterol (Breo Ellipta 100-25 Mcg INH) 100 MCG-25 MCG/DOSE BLST.W.DEV 2 PUFF Inhale through mouth DAILY as needed for SOB Qty = 180 Comments: NOT GIVEN IN HOSPITAL Start taking the following new medications: Insulin Detemir (Levemir) 100 UNIT/ML VIAL 10 Units Inject into fatty tissue DAILY Qty = 1 No Refills Instructions: . Comments: Last Taken: 07/24/17 Time: 0830 AM Copies To: Thao DEL VALLE,Manuel Lozano; Garrett DEL VALLE,Tim Rhodes; Shruthi DEL VALLE,Urbano; Fe DEL VALLE,Dre Silva MD Review Statement Documenting Attending: Celena DEL VALLE,Sivakumar
[2017-07-25] MEDS ORDERED: PEN NEEDLE1 EAC1 SC (11:16)
== END 2017-07-24 16:25 | disposition home health service (06) | DRG 638 ==
LOC: ERH 21:14 → ERHI 23:30 → 2NB 23:30 → ENRESERV 07-23 00:06 → 2NB 07-23 00:47 → ENTRNSPT 07-24 16:04 → EDTRNSPT 07-24 16:14 → EDTRNSPTSTS 07-24 16:14 → 2NB 07-24 16:25 → CMPTRNSPT 07-24 16:34
PROVIDERS: Emergency Medicine; Student in an Organized Health Care Education/Training Program
DX: E11.65 Type 2 diabetes mellitus with hyperglycemia (principal); E87.2 Acidosis; N17.9 Acute kidney failure, unspecified; M31.6 Other giant cell arteritis; E87.1 Hypo-osmolality and hyponatremia; E11.22 Type 2 diabetes mellitus with diabetic chronic kidney disease; T38.0X5A Adverse effect of glucocorticoids and synthetic analogues, initial encounter; E03.9 Hypothyroidism, unspecified; E78.5 Hyperlipidemia, unspecified; J45.909 Unspecified asthma, uncomplicated; K21.9 Gastro-esophageal reflux disease without esophagitis; Z79.84 Long term (current) use of oral hypoglycemic drugs; R70.0 Elevated erythrocyte sedimentation rate; I12.9 Hypertensive chronic kidney disease with stage 1 through stage 4 chronic kidney disease, or unspecified chronic kidney disease; N18.3 Chronic kidney disease, stage 3 (moderate); M62.81 Muscle weakness (generalized); D72.829 Elevated white blood cell count, unspecified; R91.8 Other nonspecific abnormal finding of lung field; H40.20X0 Unspecified primary angle-closure glaucoma, stage unspecified; Z88.1 Allergy status to other antibiotic agents; Z90.710 Acquired absence of both cervix and uterus
CPT/HCPCS: 2NBP; 86021; ERO; 36415; 81001; 82436; 86376; 86800; 87086; 93005; 93010; 96360; J1650; J3490; J7508

== ENCOUNTER 2017-08-02 12:49 | Inpatient (IN) | payer OTHER ==
[~2017-08-02] VITALS: Ht 154.9 cm; Wt 51.4 kg
[~2017-08-02 12:49] MED LIST: ASPIRIN81 M4 PO; BREO ELLIPTA 11 EACH INH; CARDIZEM CD300 M1 PO; GLUCOPHAGE1000 M1 PO; LEVEMIR100 UNIT/1 SC; METOPROLOL SUC100 M2 PO; MONTELUKAST SOD10 M1 PO; OMEPRAZOLE20 M2 PO; PEN NEEDLE1 EAC1 SC; SODIUM BICARBO650 M1 PO; SYNTHROID100 MCG PO; VITAMIN B-121000 MC3 PO; VITAMIN D31000 UNI1 PO; ZETIA10 M1 PO
[2017-08-02 14:02] LABS: ABSOLUTE BASOPHIL COUNT 0 /CUMM (0.0-0.2); ABSOLUTE EOSINOPHIL COUNT 0.1 /CUMM (0.0-0.7); ABSOLUTE GRANULOCYTE CT 7.4 /CUMM (1.4-6.5); ABSOLUTE LYMPH COUNT 0.3 /CUMM (1.2-3.4); ABSOLUTE MONOCYTE COUNT 0.4 /CUMM (0.10-0.60); BASOPHIL % 0.1 % (0.0-2.0); EOSINOPHIL % 1.1 % (0-5); MEAN CORPUSCULAR HGB 29.2 PG (27.0-31.0); MEAN CORPUSCULAR HGB CONC 34.8 G/DL (33.0-37.0); MEAN PLATELET VOLUME 7.1 FL (7.4-10.4); PLATELET COUNT 294 /CUMM (130-400); RBC DISTRIBUTION WIDTH 15.6 % (11.5-14.5); RED BLOOD CELL CT 3.21 /CUMM (4.20-5.40); WHITE BLOOD CELL COUNT 8.2 /CUMM (4.8-10.8)
--- NOTE | 2017-08-02 14:20 | RADIOLOGY REPORT ---
EXAMINATION: XR CHEST CLINICAL INFORMATION: Shortness of breath. COMPARISON: CT chest 07/24/2017. TECHNIQUE: 2 views of the chest were obtained. FINDINGS: Lungs are well-expanded. No focal consolidative disease, pleural effusion cough, or pneumothorax. The cardiac silhouette and upper mediastinal contours are normal. No acute osseous finding. IMPRESSION: Unremarkable chest radiograph. No consolidative disease or effusion.
[2017-08-02 14:22] LABS: GRANULOCYTE % 90.5 % (42.2-75.2)
--- NOTE | 2017-08-02 14:56 | ED AMS/SEIZURE/WEAK/DIZZY ---
History of Present Illness General Chief Complaint: General Adult Stated Complaint: LOW BLOOD PRESSURE Source: patient, family, old records Exam Limitations: no limitations Vital Signs & Intake/Output Vital Signs & Intake/Output Vital Signs Date Time Temp Pulse Resp B/P B/P Pulse O2 O2 Flow FiO2 Mean Ox Delivery Rate 08/02 1530 98.2 77 18 117/57 100 Room Air 08/02 1513 78 18 120/54 100 Room Air 08/02 1305 97.5 86 18 95/61 95 Room Air Allergies Coded Allergies: erythromycin base (Intermediate, PALPITATIONS 06/29/15) Reconcile Medications Aspirin (Aspirin*) 81 MG TAB.CHEW 1 TAB PO DAILY HEART HEALTH (Reported) Cholecalciferol (Vitamin D3) (Vitamin D3) 1,000 UNIT CAPSULE 1 CAP PO DAILY BONE STRENGTH (Reported) Cyanocobalamin (Vitamin B-12) 1,000 MCG TABLET 500 MG PO DAILY HEART HEALTH ( Reported) Diltiazem HCl (Cardizem Cd) 300 MG CAP.ER.24H 1 CAP PO DAILY VENTRICULAR ECTOPY (Reported) Ezetimibe (Zetia) 10 MG TABLET 1 TAB PO DAILY HLP (Reported) Fluticasone/Vilanterol (Breo Ellipta 100-25 Mcg INH) 100 MCG-25 MCG/DOSE BLST.W.DEV 2 PUFF INH DAILY PRN SOB (Reported) Insulin Detemir (Levemir) 100 UNIT/ML VIAL 10 UNITS SC DAILY DM . Levothyroxine Sodium (Synthroid) 100 MCG TABLET 1 TAB PO DAILY HYPOTHYRODISM (Reported) Metformin HCl (Glucophage) 1,000 MG TABLET 1 TAB PO BID DM (Reported) Metoprolol Succinate 100 MG TAB.ER.24H 0.5 TAB PO DAILY HTN Montelukast Sodium 10 MG TABLET 1 TAB PO DAILY ALLERGIES (Reported) Omeprazole 20 MG CAPSULE.DR 1 CAP PO DAILY ACID REFLUX (Reported) Pen Needle, Diabetic (Pen Needle) 30 GAUGE X 5/16" DIS.NEEDLE 1 UNIT SC ONCE DAILY DM PLEASE USE THE NEEDLES FOR FLEX INSULIN LEVEMIR PEN Sodium Bicarbonate 650 MG TABLET 1 TAB PO BID VITAMIN SUPPORT (Reported) Core Measure Meds Pre-Hospital aspirin Triage Note: 77 YEAR OLD FEMALE TO ER WITH FAMILY WITH COMPLAINTS OF FEELING LIGHT HEADED AND DIZZY, BP 95/61, PT WAS DISCHARGED A WEEK AGO AFTER BEING ADMITTED FOR HIGH BLOOD SUGAR RELATED TO THE STEROIDS SHE WAS ON. DIZZINESS IS WORSE WHEN SHE MOVES, DENIES CP BUT STATES THAT SHE FEELS SOB. PT HAS HISTORY OF ANEMIA AND WAS SUPOSSED TO GET B12 SHOT TODAY. Triage Nurses Notes Reviewed? yes Onset: Last week Duration: day(s):, constant, continues in ED, getting worse Timing: recent history Injury Environment: home Severity: severe Modifying Factors: Improves With: rest. Worsens With: movement. LMP (ages 10-50): post menopausal : No Patient currently breastfeeds: No HPI: Vomiting prior to admission patient complains of episodic weakness and dizziness improved with rest. 2 days and one day prior to admission she had loose watery stool. Prior to admission visiting nurse found her blood pressure be 80/60. She denies fever chills nausea vomiting abdominal pain chest pain cough shortness of breath headache dysuria rash bleeding Past History Travel History Traveled to [facility] past 21 day No Medical History Any Pertinent Medical History? see below for history Neurological: NONE EENT: glaucoma Cardiovascular: hypertension, HIGH CHOLESTEROL Respiratory: asthma Gastrointestinal: GERD Hepatic: NONE Renal: NONE Musculoskeletal: NONE Psychiatric: NONE Endocrine: diabetes, HYPOTHYROIDISM Blood Disorders: NONE Cancer(s): NONE ALMOND PASTE MIXER/Reproductive: NONE History of MRSA: No History of VRE: No History of CDIFF: No Surgical History Surgical History: hysterectomy Psychosocial History Who do you live with Patient and family Services at Home None What is your primary language Malay Tobacco Use: Never used ETOH Use: denies use Illicit Drug Use: denies illicit drug use Family History Hx Contributory? No Review of Systems Review of Systems Constitutional: Reports: see HPI, weakness. EENTM: Reports: no symptoms. Respiratory: Reports: no symptoms. Cardiovascular: Reports: no symptoms. GI: Reports: see HPI, diarrhea. Genitourinary: Reports: no symptoms. Musculoskeletal: Reports: no symptoms. Skin: Reports: no symptoms. Neurological/Psychological: Reports: no symptoms. Hematologic/Endocrine: Reports: no symptoms. Immunologic/Allergic: Reports: no symptoms. All Other Systems: Reviewed and Negative Physical Exam Physical Exam General Appearance: well developed/nourished, alert, awake, anxious, mild distress Head: atraumatic, normal appearance Eyes: Bilateral: PERRL, EOMI, pale conjunctivae. Ears, Nose, Throat: normal pharynx, normal ENT inspection Neck: normal inspection, supple, full range of motion, no midline tenderness Respiratory: normal breath sounds, chest non-tender, no respiratory distress, quiet respiration, lungs clear Cardiovascular: regular rate/rhythm, normal peripheral pulses, norml femoral pulses equa Peripheral Pulses: 4+ carotid (R), 4+ carotid (L) Gastrointestinal: normal bowel sounds, soft, non-tender, no organomegaly Back: normal inspection, normal range of motion Extremities: normal range of motion, no ligament instability Neurologic/Psych: no motor/sensory deficits, awake, alert, oriented x 3, normal gait, normal mood/affect, operations vocational instructor II-XII nml as tested Reflexes: 2+: bicep (R), bicep (L). Skin: intact, warm/dry, pallor Lymphatic: no anterior cervical tigre Core Measures ACS in differential dx? No No ASA d/t Pharmacological CI CVA/TIA Diagnosis No Sepsis Present: No Sepsis Focused Exam Completed? No Progress Differential Diagnosis: anemia, dehydration, drug intoxication, electrolyte imbalance, GI bleed, hypoxia Plan of Care: Orders Procedure Date/time Status Consistent Carbohydrate 2 08/02 D Active Pathway - chart 08/02 1617 Active House Staff 08/02 1617 Active Code Status 08/02 1617 Active Patient Data 08/02 1553 Active OXYGEN SETUP (GEN) 08/02 1548 Active Saline Lock 08/02 1548 Active Admit to inpatient 08/02 1548 Active Vital Signs 08/02 1548 Active Activity/Ambulation 08/02 1548 Active Code Status 08/02 1548 Complete Intake & Output 08/02 1517 Active Add-on Test (ER Only) 08/02 1506 Active MAGNESIUM 08/02 1343 Complete WESTERGREN SED RATE 08/02 1343 Complete MISTAKE 08/02 1310 Active TSH REFLEX 08/02 1310 Complete TROPONIN LEVEL 08/02 1310 Complete COMPREHENSIVE METABOLIC PANEL 08/02 1310 Complete CBC WITHOUT DIFFERENTIAL 08/02 1310 Complete EKG 08/02 1310 Active VTE Mechanical Prophylaxis 08/02 UNK Active Current Medications Sig/Liliana Start time Last Medication Dose Stop Time Status Admin Aspirin 81 MG DAILY 08/03 899 UNVr (Aspirin) Diltiazem HCl 300 MG DAILY 08/03 899 UNVr (Cardizem CD) Ezetimibe 10 MG DAILY 08/03 899 UNVr (Zetia) Insulin Detemir 10 UNITS DAILY 08/03 899 UNVr (Levemir) Levothyroxine Sodium 0.1 MG DAILY 08/03 899 UNVr (Synthroid) Montelukast Sodium 10 MG DAILY 08/03 899 UNVr (Singulair) Omeprazole 20 MG DAILY 08/03 899 UNVr (Prilosec) Sodium Bicarbonate 650 MG BID 08/02 2100 UNVr (Sodium Bicarb 325MG Tab) Laboratory Tests 08/02/17 1343: Anion Gap 14, Estimated GFR 44 L, BUN/Creatinine Ratio 12.5, Glucose 114 H, Calcium 10.0, Magnesium 1.7, Total Bilirubin 0.3, AST 16, ALT 25, Alkaline Phosphatase 63, Troponin I 0.03, Total Protein 6.7, Albumin 3.5, Globulin 3.2, Albumin/Globulin Ratio 1.1, TSH &T3 &Free T4 Intrp 2.050, CBC w Diff NO MAN DIFF REQ, RBC 3.21 L, MCV 84.0, MCH 29.2, MCHC 34.8, RDW 15.6 H, MPV 7.1 L, Gran % 90.5 H, Lymphocytes % 3.8 L, Monocytes % 4.5, Eosinophils % 1.1, Basophils % 0.1, Absolute Granulocytes 7.4 H, Absolute Lymphocytes 0.3 L, Absolute Monocytes 0.4, Absolute Eosinophils 0.1, Absolute Basophils 0, ESR Westergren 113 H 08/02/17 1311: ESR Westergren Cancelled Initial ED EKG: normal axis, normal p-waves, normal sinus rhythm, RBBB, no ST T wave changes Prior EKG: unchanged Rhythm Strip: normal sinus rhythm Departure Departure Disposition: STILL A PATIENT Condition: Stable Clinical Impression Primary Impression: Hypokalemia Secondary Impressions: Chronic anemia, Hyponatremia syndrome, Hypotension Referrals: Dre Miramontes MD (PCP/Family) Departure Forms: Customer Survey General Discharge Information Prescriptions: Current Visit Scripts Metoprolol Succinate 0.5 TAB PO DAILY #30 TAB Admission Note Spoke With: Maci Timmons MD Documentation of Exam: Documentation of any treatments & extenuating circumstances including Concerns Regarding Discharge (functional status, medication knowledge or non-compliance, living conditions, etc.) that warrant an admission rather than observation: Electrolyte replacement serial lab exam medication adjustment insure safety cardiac monitoring physical therapy continuing care discharge planning
--- NOTE | 2017-08-02 16:08 | History & Physical ---
Luis DEL VALLE,[facility] 08/02/17 8727: General Information and HPI MD Statement: I have seen and personally examined NIMESH JERRY and documented this H&P. The patient is a 77 year old F who presented with a patient stated chief complaint of [lightheaded/dizziness]. Source of Information: patient, family History of Present Illness: Patient is 77 y F with PMH of HTN, HLP, asthma, GERD, closed-angle glaucoma, DM and hypothyroidism, recently discharged from [facility] after being treated for prednisone-induced hyperglycemia presented to the ED with chief complaint of lightheadedness and some dizziness which has been going on since her discharge from the hospital on July 24. According to the patient, she has been feeling lightheaded and dizzy, especially when she stands up from sitting position and has been holding onto things while walking. She does not use a cane or walker at baseline. She checked her blood pressure today in systolic blood pressure was in the 90s, usually runs in the 100s.Her dose of metoprolol was also decreased to half after recent discharge from [place]. She also reports shortness of breath, says she uses an inhaler for her asthma and COPD and usually helps with her breathing but today she did not get a chance to use the inhaler and came to the ER. Also endorses diarrhea that has been going on for the past couple of days, reports 1 episode of loose stools this morning and 2-3 episodes yesterday. Denies any blood in the stools. Denies any fever, abdominal pain, constipation, nausea/vomiting, recent travel, unusual eating, chest pain or palpitations. Patient also denies any recent antibiotic use but according to the son she was on some antibiotics last month. Endorses feeling cold/shaking that has been going on for a couple of weeks now. Allergies/Medications Allergies: Coded Allergies: erythromycin base (Intermediate, PALPITATIONS 06/29/15) Home Med list Aspirin (Aspirin*) 81 MG TAB.CHEW 1 TAB PO DAILY HEART HEALTH (Reported) Cholecalciferol (Vitamin D3) (Vitamin D3) 1,000 UNIT CAPSULE 1 CAP PO DAILY BONE STRENGTH (Reported) Cyanocobalamin (Vitamin B-12) 1,000 MCG TABLET 500 MG PO DAILY HEART HEALTH ( Reported) Diltiazem HCl (Cardizem Cd) 300 MG CAP.ER.24H 1 CAP PO DAILY VENTRICULAR ECTOPY (Reported) Ezetimibe (Zetia) 10 MG TABLET 1 TAB PO DAILY HLP (Reported) Fluticasone/Vilanterol (Breo Ellipta 100-25 Mcg INH) 100 MCG-25 MCG/DOSE BLST.W.DEV 2 PUFF INH DAILY PRN SOB (Reported) Insulin Detemir (Levemir) 100 UNIT/ML VIAL 10 UNITS SC DAILY DM . Levothyroxine Sodium (Synthroid) 100 MCG TABLET 1 TAB PO DAILY HYPOTHYRODISM (Reported) Metformin HCl (Glucophage) 1,000 MG TABLET 1 TAB PO BID DM (Reported) Metoprolol Succinate 100 MG TAB.ER.24H 0.5 TAB PO DAILY HTN Montelukast Sodium 10 MG TABLET 1 TAB PO DAILY ALLERGIES (Reported) Omeprazole 20 MG CAPSULE.DR 1 CAP PO DAILY ACID REFLUX (Reported) Pen Needle, Diabetic (Pen Needle) 30 GAUGE X 5/16" DIS.NEEDLE 1 UNIT SC ONCE DAILY DM PLEASE USE THE NEEDLES FOR FLEX INSULIN LEVEMIR PEN Sodium Bicarbonate 650 MG TABLET 1 TAB PO BID VITAMIN SUPPORT (Reported) Past History Travel History Traveled to [place] past 21 day No Medical History Neurological: NONE EENT: glaucoma Cardiovascular: hypertension, HIGH CHOLESTEROL Respiratory: asthma, COPD Gastrointestinal: GERD Hepatic: NONE Renal: NONE Musculoskeletal: NONE Psychiatric: NONE Endocrine: diabetes, HYPOTHYROIDISM Blood Disorders: NONE Cancer(s): NONE MAGISTRATE JUDGE/Reproductive: NONE History of MRSA: No History of VRE: No History of CDIFF: No Surgical History Surgical History: hysterectomy Past Family/Social History Psychosocial History Services at Home: None ETOH Use: denies use Illicit Drug Use: denies illicit drug use Functional Ability Ambulation: independent Review of Systems Review of Systems Constitutional: Reports: chills. EENTM: Reports: no symptoms. Cardiovascular: Reports: no symptoms. Respiratory: Reports: no symptoms. GI: Reports: diarrhea. Genitourinary: Reports: no symptoms. Musculoskeletal: Reports: no symptoms. Skin: Reports: no symptoms. Neurological/Psychological: Reports: no symptoms. Hematologic/Endocrine: Reports: no symptoms. Immunologic/Allergic: Reports: no symptoms. All Other Systems: Reviewed and Negative Exam & Diagnostic Data Last 24 Hrs of Vital Signs/I&O Vital Signs Date Time Temp Pulse Resp B/P B/P Pulse O2 O2 Flow FiO2 Mean Ox Delivery Rate 08/02 1759 98.3 92 18 138/62 100 Room Air 08/02 1530 98.2 77 18 117/57 100 Room Air 08/02 1513 78 18 120/54 100 Room Air 08/02 1305 97.5 86 18 95/61 95 Room Air Intake & Output 08/02 1600 08/02 0800 06 0000 Intake Total 1000 Output Total Balance 1000 Intake, IV 1000 Patient 112 lb Weight Physical Exam General Appearance Alert, Oriented X3, Cooperative, No Acute Distress Skin No Rashes, No Breakdown HEENT Atraumatic, PERRLA, EOMI Neck Supple, No JVD Cardiovascular Regular Rate, Normal S1, Normal S2, No Murmurs Lungs Clear to Auscultation Abdomen Normal Bowel Sounds, Soft, No Tenderness Extremities No Clubbing, No Cyanosis, No Edema, Normal Pulses Last 24 Hrs of Labs/Aries: Laboratory Tests 08/02/172119: Lactic Acid Pending 08/02/172119: Sodium Pending, Potassium Pending, Chloride Pending, Carbon Dioxide Pending, Anion Gap Pending, BUN Pending, Creatinine Pending, BUN/Creatinine Ratio Pending , Iron Pending, TIBC Pending, Ferritin Pending 08/02/17 1835: Lactic Acid 0.6 L 08/02/17 1343: Anion Gap 14, Estimated GFR 44 L, BUN/Creatinine Ratio 12.5, Glucose 114 H, Calcium 10.0, Magnesium 1.7, Total Bilirubin 0.3, AST 16, ALT 25, Alkaline Phosphatase 63, Troponin I 0.03, Total Protein 6.7, Albumin 3.5, Globulin 3.2, Albumin/Globulin Ratio 1.1, TSH &T3 &Free T4 Intrp 2.050, Cortisol AM Sample 22.2 08/02/17 1343: ACTH Stimulation Pending, CBC w Diff NO MAN DIFF REQ, RBC 3.21 L, MCV 84.0, MCH 29.2, MCHC 34.8, RDW 15.6 H, MPV 7.1 L, Gran % 90.5 H, Lymphocytes % 3.8 L, Monocytes % 4.5, Eosinophils % 1.1, Basophils % 0.1, Absolute Granulocytes 7.4 H, Absolute Lymphocytes 0.3 L, Absolute Monocytes 0.4, Absolute Eosinophils 0.1 , Absolute Basophils 0, ESR Westergren 113 H 08/02/17 1311: ESR Westergren Cancelled Microbiology 08/02 1739 STOOL: Stool Culture - COLB 08/02 1725 STOOL: Clostridium difficile Toxin A & B - COLB Diagnostic Data EKG Results NSR with RBBB CXR Results No acute pathology Assessment/Plan Assessment: Patient is 77 y F with PMH of HTN, HLP, asthma, GERD, closed-angle glaucoma, DM, ??Temporal arteritis and hypothyroidism, recently discharged from [facility] after being treated for prednisone-induced hyperglycemia presented to the ED with chief complaint of lightheadedness and some dizziness which has been going on since her discharge from the hospital on July 24. Problem List 1. Lighthededness/Dizziness likely from dehydration from Diarrhea 2. Hypokalemia likely 2/2 Diarrhea 3. HENRY likely prerenal from dehydration 4. Chronic Hyponatremia 5. Chrnic Anemia 6. Hx of HTN, HLD, asthma,COPD, GERD, closed-angle glaucoma, DM and hypothyroidism. - Admit the Patient to Telemetry floor - Patient already recieved IV KCl 40 mEQ PO and 10 mEQ IV x 1. Will repeat BEP at 9pm and replete K accordingly. - Recived 1 L NS bolus in the ER. Will continue gentle IV fluids. - Patient was recently on prednisone for questionable Temporal arteritis, will give stress dose hydrocortisone. - Order C. diff, ?? recent antibiotic use. - check lactic acid. - Check Urine Na, FeNa - Order Iron studies. - Hold metformin and start ISS. - Continue rest of the home medications except antihypertensives. DVT Prophylaxis; ALPS and S/C Heparin Patient is Full code. As Ranked By This Provider Problem List: 1. Chronic anemia 2. Hypokalemia 3. Hyponatremia syndrome Core Measures/Misc (11/18) Acute Coronary Syndrome ACS Diagnosis: No Congestive Heart Failure Congestive Heart Failure Diagnosis No Cerebrovascular Accident CVA/TIA Diagnosis: No VTE (View Protocol) VTE Risk Factors Age>40 No Mechanical VTE Prophylaxis d/t N/A MechProphylax Ordered No VTE Pharm Prophylaxis d/t NA PharmProphylax ordered Sepsis (View protocol) Sepsis Present: No If YES complete Sepsis Event Note If YES complete Sepsis Event Note Eduard DEL VALLE,[facility] 08/02/17 1742: Core Measures/Misc (11/18) Sepsis (View protocol) If YES complete Sepsis Event Note If YES complete Sepsis Event Note Resident Review Statement Resident Statement: examined this patient, discussed with regulatory internship, agreed with regulatory internship, discussed with family, reviewed EMR data (avail) Other Findings: 77-year-old female with PMH of NIDDM, HTN, HLD, asthma/COPD, hypothyroidism, lung nodules who presented for dizziness, lightheadedness.The patient recently started to complain of bilateral temporal headache and was found to have elevated ESR, it was thought to be giant temporal arteritis for which she was started on prednisone. Then she developed steroid-induced hyperglycemia that required hospital admission. After her glucoses were controlled she was discharged on 07/24/17 Since discharge she has been complaining of dizziness and lightheadedness. She reports 3 days of intermittent, nonbloody diarrhea, with the last bowel movement being this morning. She noticed low blood pressure at home for which she decided to be evaluated in the ED. She denies nausea, vomiting, constipation, abdominal pain, fever, or chest pain. Plan: #Dizziness and lightheadedness in the setting of diarrhea * The patient reports low blood pressure at home, however hypotensive in the ED. * She reports 3 days of diarrhea, dehydrated on physical exam,and has HENRY * Most likely her symptom related to dehydration * Anemia may contribute to this symptom * She is on IV fluids * We will send for urine culture * We will send for C. difficile and stool culture * We will monitor in telemetry * Orthostatic check #Hyponatremia: * Possibly secondary to dehydration, could be secondary to chronic steroid use. * We will send for urine electrolytes and osmolarity * We will check steroid level * Repeat BEP at 9 PM * We will ask for endocrine consult. #Hypokalemia * Most likely secondary to diarrhea * We'll replete potassium as necessary * Repeat BEP at 9 PM #Chronic stable conditions:DM, HTN, HLD, asthma/COPD, GERD, hypothyroidism, lung nodules * Continue levothyroxin * Continue COPD inhalers * Continue Cardizem and metoprolol * Continue PPI * We will hold all oral antihyperglycemic medication * Start fingerstick * Diabetic diet * Insulin sliding scale -Low carbohydrate diet -DVT ppx with SC heprin -FC
[2017-08-02] MEDS ORDERED: METOPROLOL SUC100 M2 PO (16:22)
--- NOTE | 2017-08-02 17:31 | PN- Att Addend ---
Attending Addendum Attending Brief Note Patient seen and examined at bedside. Agree with resident assessment and plan. 77F PMH DM, HTN, HLD, asthma/COPD, hypothyroidism, lung nodules, recently diagnosed with temporal arteritis and placed on Prednisone, then admitted for lightheadedness and hyperglycemia, with Prednisone stopped by Dr. Tucker after low suspicion of temporal arteritis (no biopsy was done), and discharged home a week ago, presenting today with weakness and lightheadedness, found to be hypotensive, hypokalemic, hyponatremic, with vomiting and headache overnight. Improved with IV fluids. Plan: Started stress dose steroids, cortisol level sent , endocrine consult, cultures, IV hydration.
[2017-08-02 22:00] VITALS: BP 136/66
[2017-08-03 06:34] VITALS: BP 110/60
[2017-08-03 08:02] LABS: ABSOLUTE BASOPHIL COUNT 0 /CUMM (0.0-0.2); ABSOLUTE EOSINOPHIL COUNT 0.1 /CUMM (0.0-0.7); ABSOLUTE GRANULOCYTE CT 4.2 /CUMM (1.4-6.5); ABSOLUTE LYMPH COUNT 0.6 /CUMM (1.2-3.4); ABSOLUTE MONOCYTE COUNT 0.4 /CUMM (0.10-0.60); BASOPHIL % 0.3 % (0.0-2.0); EOSINOPHIL % 1.1 % (0-5); GRANULOCYTE % 79.5 % (42.2-75.2); HEMATOCRIT 23.2 % (37-47); MEAN CORPUSCULAR HGB CONC 34.5 G/DL (33.0-37.0); MEAN CORPUSCULAR VOLUME 84.3 FL (81.0-99.0); MEAN PLATELET VOLUME 7.2 FL (7.4-10.4); PLATELET COUNT 269 /CUMM (130-400); RBC DISTRIBUTION WIDTH 15.4 % (11.5-14.5); RED BLOOD CELL CT 2.76 /CUMM (4.20-5.40); WHITE BLOOD CELL COUNT 5.3 /CUMM (4.8-10.8)
--- NOTE | 2017-08-03 08:53 | PN- Att Addend ---
Attending Addendum Attending Brief Note Patient seen and examined. As per the nurse and the patient she is looking better. She is eating her breakfast and she walked to the bathroom without getting dizzy. On exam pressure is 110/60, pulse is 97, breathing at 16-18 and a low-grade temp of 99.2. Lungs are clear to auscultation bilaterally, heart is S1-S2 regular, abdomen is soft nontender. Labs show a sodium of 138 and a K is 4.3. This is a 77-year-old female past medical history of diabetes, hypertension, emphysema who was recently here at [facility] from July 22 to July 24 for steroid-induced hyperglycemic state. She had been on steroids for a presumed diagnosis of temporal arteritis but on that admission after consult in with rheumatology the steroids were stopped. Patient was readmitted yesterday with hypotension, hyponatremia, hypokalemia. She got IV fluids and potassium and her numbers have resolved nicely. There was a worry of adrenal insufficiency and the random cortisol was checked which was normal. Her UA has greater than 75 white cells and given her diabetes, recent hospital stay, hypotension on admission- I am worried about a UTI. I don't think this is adrenal insufficiency. I have asked Dr. Osuna to consult on her. I will give her IV ceftriaxone and follow the urine cultures. After this bag of fluids, will stop the fluids and have her walk around. And restart her metoprolol.
--- NOTE | 2017-08-03 12:23 | Cons- Endocrinology ---
General Information and HPI Consulting Request Date of Consult: 08/03/17 Requested By: medical team Reason for Consult: poissible adrenal insuficiency Source of Information: patient, family, old records Exam Limitations: no limitations History of Present Illness: This 77-year-old woman came to the emergency room from home because of dizziness , weakness, and low blood pressure. Her blood pressure was measured at home to be low. She states that she has a 2-3 day history of diarrhea before arrival in the ER. The patient does have a history of diabetes mellitus type 2 and also hypothyroidism. She was last in the hospital a few weeks ago because of high sugar after being placed on high-dose steroids for possible temporal arteritis. It was felt that she did not have temporal arteritis and the steroids were stopped. She was on high-dose steroids for less than 2 weeks. At home the patient was on metformin 500 mg twice a day and 10 units of Levemir once a day. She states that her sugars were good. She denies any low blood sugars. Allergies/Medications Allergies: Coded Allergies: erythromycin base (Intermediate, PALPITATIONS 06/29/15) Home Med List: Aspirin (Aspirin*) 81 MG TAB.CHEW 1 TAB PO DAILY HEART HEALTH (Reported) Cholecalciferol (Vitamin D3) (Vitamin D3) 1,000 UNIT CAPSULE 1 CAP PO DAILY BONE STRENGTH (Reported) Cyanocobalamin (Vitamin B-12) 1,000 MCG TABLET 500 MG PO DAILY HEART HEALTH ( Reported) Diltiazem HCl (Cardizem Cd) 300 MG CAP.ER.24H 1 CAP PO DAILY VENTRICULAR ECTOPY (Reported) Ezetimibe (Zetia) 10 MG TABLET 1 TAB PO DAILY HLP (Reported) Fluticasone/Vilanterol (Breo Ellipta 100-25 Mcg INH) 100 MCG-25 MCG/DOSE BLST.W.DEV 2 PUFF INH DAILY PRN SOB (Reported) Insulin Detemir (Levemir) 100 UNIT/ML VIAL 10 UNITS SC DAILY DM . Levothyroxine Sodium (Synthroid) 100 MCG TABLET 1 TAB PO DAILY HYPOTHYRODISM (Reported) Metformin HCl (Glucophage) 1,000 MG TABLET 1 TAB PO BID DM (Reported) Metoprolol Succinate 100 MG TAB.ER.24H 0.5 TAB PO DAILY HTN Montelukast Sodium 10 MG TABLET 1 TAB PO DAILY ALLERGIES (Reported) Omeprazole 20 MG CAPSULE.DR 1 CAP PO DAILY ACID REFLUX (Reported) Pen Needle, Diabetic (Pen Needle) 30 GAUGE X 5/16" DIS.NEEDLE 1 UNIT SC ONCE DAILY DM PLEASE USE THE NEEDLES FOR FLEX INSULIN LEVEMIR PEN Sodium Bicarbonate 650 MG TABLET 1 TAB PO BID VITAMIN SUPPORT (Reported) Review of Systems Review of Systems Constitutional: Reports: malaise. Denies: chills, fever. Cardiovascular: Denies: chest pain. Respiratory: Denies: cough, short of breath. GI: Reports: diarrhea. Denies: vomiting. Skin: Reports: no symptoms. 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 Home Services at Home: None Smoking Status: Former Smoker ETOH Use: denies use Illicit Drug Use: denies illicit drug use Functional Ability Ambulation: independent Exam & Diagnostic Data Last 24 Hrs of Vital Signs/I&O Vital Signs Date Time Temp Pulse Resp B/P B/P Pulse O2 O2 Flow FiO2 Mean Ox Delivery Rate 08/03 0634 99.2 97 18 110/60 95 Room Air 08/02 2200 99.7 102 22 136/66 92 Room Air 08/02 1759 98.3 92 18 138/62 100 Room Air 08/02 1530 98.2 77 18 117/57 100 Room Air 08/02 1513 78 18 120/54 100 Room Air 08/02 1305 97.5 86 18 95/61 95 Room Air Intake & Output 08/03 1600 06/02 0800 06/02 0000 Intake Total 720 780 Output Total 300 Balance 720 480 Intake, IV 600 300 Intake, Oral 120 480 Number 0 Bowel Movements Output, Urine 300 Patient 110 lb Weight Weight Bed scale Measurement Method Vital Signs Date Time Temp Pulse Resp B/P B/P Pulse O2 O2 Flow FiO2 Mean Ox Delivery Rate / 0634 99.2 97 18 110/60 95 Room Air 06/ 2200 99.7 102 22 136/66 92 Room Air / 1759 98.3 92 18 138/62 100 Room Air 08/02 1530 98.2 77 18 117/57 100 Room Air 06/ 1513 78 18 120/54 100 Room Air 08/02 1305 97.5 86 18 95/61 95 Room Air Intake & Output 08/03 1600 06/ 0800 06/ 0000 Intake Total 720 780 Output Total 300 Balance 720 480 Intake, IV 600 300 Intake, Oral 120 480 Number 0 Bowel Movements Output, Urine 300 Patient 110 lb Weight Weight Bed scale Measurement Method Physical Exam General Appearance: alert, awake, comfortable Head: normal appearance Eyes: Bilateral: normal appearance. Respiratory: normal breath sounds Cardiovascular: regular rate/rhythm Gastrointestinal: normal bowel sounds, soft Extremities: normal inspection Labs/Aries Results: Laboratory Tests 08/03 08/02 0645 2300 Chemistry Sodium (137 - 145 mmol/L) 138 Potassium (3.5 - 5.1 mmol/L) 4.3 Chloride (98 - 107 mmol/L) 109 H Carbon Dioxide (22 - 30 mmol/L) 18 L Anion Gap (5 - 16) 11 BUN (7 - 17 mg/dL) 9 Creatinine (0.5 - 1.0 mg/dL) 1.0 Estimated GFR (>60 ml/min) 54 L BUN/Creatinine Ratio (7 - 25 %) 9.0 Hematology CBC w Diff NO MAN DIFF REQ WBC (4.8 - 10.8 /CUMM) 5.3 RBC (4.20 - 5.40 /CUMM) 2.76 L Hgb (12.0 - 16.0 G/DL) 8.0 L Hct (37 - 47 %) 23.2 L MCV (81.0 - 99.0 FL) 84.3 MCH (27.0 - 31.0 PG) 29.0 MCHC (33.0 - 37.0 G/DL) 34.5 RDW (11.5 - 14.5 %) 15.4 H Plt Count (130 - 400 /CUMM) 269 MPV (7.4 - 10.4 FL) 7.2 L Gran % (42.2 - 75.2 %) 79.5 H Lymphocytes % (20.5 - 51.1 %) 11.9 L Monocytes % (1.7 - 9.3 %) 7.2 Eosinophils % (0 - 5 %) 1.1 Basophils % (0.0 - 2.0 %) 0.3 Absolute Granulocytes (1.4 - 6.5 /CUMM) 4.2 Absolute Lymphocytes (1.2 - 3.4 /CUMM) 0.6 L Absolute Monocytes (0.10 - 0.60 /CUMM) 0.4 Absolute Eosinophils (0.0 - 0.7 /CUMM) 0.1 Absolute Basophils (0.0 - 0.2 /CUMM) 0 Urines Urine Color (YEL,AMB,STR) YEL Urine Clarity (CLEAR) HAZY H Urine pH (5.0 - 8.0) 7.0 Ur Specific Enders (1.001 - 1.035) 1.010 Urine Protein (NEG,<30 MG/DL) NEG Urine Ketones (NEG) NEG Urine Nitrite (NEG) POS H Urine Bilirubin (NEG) NEG Urine Urobilinogen (0.1 - 1.0 EU/dl) 0.2 Ur Leukocyte Esterase (NEG) LARGE H Ur Microscopic SEDIMENT EXAMINED Urine RBC (0 - 5 /HPF) 1-3 Urine WBC (0 - 2 /HPF) > 75 H Ur Epithelial Cells (NONE,FEW) RARE Urine Bacteria (NEG/NONE) MANY H Urine Hemoglobin (NEG) TRACE-INTACT Urine Glucose (N MG/DL) NEG 08/02 08/02 08/02 08/02 2300 2120 2120 1835 Chemistry Sodium (137 - 145 mmol/L) 131 L Potassium (3.5 - 5.1 mmol/L) 3.0 L Chloride (98 - 107 mmol/L) 104 Carbon Dioxide (22 - 30 mmol/L) 15 L Anion Gap (5 - 16) 12 BUN (7 - 17 mg/dL) 11 Creatinine (0.5 - 1.0 mg/dL) 1.0 Estimated GFR (>60 ml/min) 54 L BUN/Creatinine Ratio (7 - 25 %) 11.0 Lactic Acid (0.7 - 2.1 mmol/L) 0.8 0.6 L Iron (37 - 170 ug/dL) 13 L TIBC (265 - 497 ug/dL) 273 Ferritin (11.1 - 264 ng/mL) 93.4 Urines Urine Osmolality (300 - 1000 MOSM/KG) 265 L Ur Random Creatinine (mg/dL) 31.5 Ur Random Sodium (30 - 90 mmol/L) 64 Ur Random Potassium (mmol/L) 24.2 Fraction Sodium Excret (<1% %) 1.6 H 08/02 08/02 1343 1343 Chemistry Sodium (137 - 145 mmol/L) 129 L Potassium (3.5 - 5.1 mmol/L) 2.8 *L Chloride (98 - 107 mmol/L) 98 Carbon Dioxide (22 - 30 mmol/L) 17 L Anion Gap (5 - 16) 14 BUN (7 - 17 mg/dL) 15 Creatinine (0.5 - 1.0 mg/dL) 1.2 H Estimated GFR (>60 ml/min) 44 L BUN/Creatinine Ratio (7 - 25 %) 12.5 Glucose (65 - 99 mg/dL) 114 H Calcium (8.4 - 10.2 mg/dL) 10.0 Magnesium (1.6 - 2.3 mg/dL) 1.7 Total Bilirubin (0.2 - 1.3 mg/dL) 0.3 AST (14 - 36 U/L) 16 ALT (9 - 52 U/L) 25 Alkaline Phosphatase (<127 U/L) 63 Troponin I (< 0.11 ng/ml) 0.03 Total Protein (6.3 - 8.2 g/dL) 6.7 Albumin (3.5 - 5.0 g/dL) 3.5 Globulin (1.9 - 4.2 gm/dL) 3.2 Albumin/Globulin Ratio (1.1 - 2.2 %) 1.1 TSH &T3 &Free T4 Intrp (0.270 - 4.20 uIU/mL) 2.050 Cortisol AM Sample (4.46 - 22.7 ug/dL) 22.2 ACTH Stimulation Pending Hematology CBC w Diff NO MAN DIFF REQ WBC (4.8 - 10.8 /CUMM) 8.2 RBC (4.20 - 5.40 /CUMM) 3.21 L Hgb (12.0 - 16.0 G/DL) 9.4 L Hct (37 - 47 %) 27.0 L MCV (81.0 - 99.0 FL) 84.0 MCH (27.0 - 31.0 PG) 29.2 MCHC (33.0 - 37.0 G/DL) 34.8 RDW (11.5 - 14.5 %) 15.6 H Plt Count (130 - 400 /CUMM) 294 MPV (7.4 - 10.4 FL) 7.1 L Gran % (42.2 - 75.2 %) 90.5 H Lymphocytes % (20.5 - 51.1 %) 3.8 L Monocytes % (1.7 - 9.3 %) 4.5 Eosinophils % (0 - 5 %) 1.1 Basophils % (0.0 - 2.0 %) 0.1 Absolute Granulocytes (1.4 - 6.5 /CUMM) 7.4 H Absolute Lymphocytes (1.2 - 3.4 /CUMM) 0.3 L Absolute Monocytes (0.10 - 0.60 /CUMM) 0.4 Absolute Eosinophils (0.0 - 0.7 /CUMM) 0.1 Absolute Basophils (0.0 - 0.2 /CUMM) 0 ESR Westergren (0 - 20 MM) 113 H 08/02 1311 Hematology ESR Westergren Cancelled Assessment/Plan Assessment/Plan This 77-year-old woman presents with diarrhea and evidence of dehydration.. She had low sodium and low potassium on admission as well as increase in her BUN and creatinine. Most of her symptoms would seem to be due to dehydration secondary to diarrhea. The fact that her serum cortisol was 22.3 is a strong point against adrenal insufficiency being the cause of this problem. The patient's diarrhea could be due to metformin and other causes need to be ruled out.. We had increased the dose of metformin to 500 mg twice a day before discharge last time she was here. She was also sent home on Levemir 10 units once a day. She states that her sugars were good at home and she denies low blood sugar. However I feel we should hold the metformin in view of her diarrhea. The patient states that she still feels weak and does not feel good. She remains anemic and the cause of her anemia is not clear. She has never had a hematological workup. Her anemia could be a cause of her continued weakness. Since the patient has autoimmune thyroid disease we check for adrenal antibodies in the form of 21-hydroxylase antibody and also check her anti-TPO and antithyroglobulin. I would also look at her pituitary gland because of her continue complaints of weakness. We should measure FSH LH estradiol and prolactin. A free T4 should also be done. With regard to her diabetes I would reduce the Levemir to 6 units once a day each morning as her sugar was low this morning. I would place her on diet and sliding scale NovoLog before meals. Sliding scale NovoLog before meals should be 100-150 give 2 units NovoLog, 151-200 give 3 units NovoLog, 201-250 give 3 units NovoLog, 251-300 give 4 units NovoLog, 301-350 give 4 units NovoLog, 351- 400 give 5 units NovoLog. Consult Acknowledgment - Thank you for your consult request.
[2017-08-03 14:14] VITALS: BP 122/60
[2017-08-03 22:21] VITALS: BP 118/60; BP 140/80
[2017-08-04 06:48] VITALS: BP 96/52
--- NOTE | 2017-08-04 09:00 | PN- Att Addend ---
Attending Addendum Attending Brief Note Patient seen and examined. Overall she is feeling slightly better but continues to complain of weakness. Her blood pressure is 96/52 she is not orthostatic, pulse is 100, MAXIMUM TEMPERATURE is 98 8 and breathing at 16-18. Lungs are clear to auscultation, heart is S1-S2 regular, abdomen is soft. Her potassium and sodium had normalized. She is developing a hyperchloremic non -anion gap acidosis and I think that's from the normal saline we gave her. She continues to be anemic with a hemoglobin of 8 which is stable. This is a 77-year-old female past medical history of diabetes, hypertension, emphysema who was recently here at [facility] from July 22 to July 24 for steroid-induced hyperglycemic state. She had been on steroids for a presumed diagnosis of temporal arteritis but on that admission after consult in with rheumatology the steroids were stopped. Patient was readmitted with hypotension , hyponatremia, hypokalemia. She got IV fluids and potassium and her numbers have resolved nicely. There was a worry of adrenal insufficiency and the random cortisol was checked which was normal. Dr. Osuna saw her and he feels like I do that this is all dehydration and this is not adrenal insufficiency. She has been chronically anemic and workup so far reaches shows anemia of chronic disease and that her ferritin is high even though her IRon and a B12 and folate are normal. She did have an endoscopy in October 2013 for the same and will likely deserve an outpatient workup for this. There have been no events on the monitor: I think the lightheadedness was all secondary to the dehydration, hyponatremia and hypokalemia and I stopped the panel monitor for now.
--- NOTE | 2017-08-04 09:55 | PN- Diabetes ---
Assessment/Plan Diabetes Assessment: Patient feels much better this morning. She is able to walk around and is not dizzy. She states she feels stronger. The patient's blood sugars was low at 10 PM last night. Her blood sugar this morning is 105. The patient's Levemir was reduced yesterday to 6 units but that dose will begin this morning. She is also on sliding scale NovoLog before meals only starting with 2 units. Plan: Suggest continue 6 units of Levemir daily. I would like to keep the patient off metformin as this may have been a cause of her diarrhea. We can add pioglitazone 30 mg once a day. The latter drug however will take a few weeks to become effective. If the patient goes home she can be sent home on 6 units of Levemir once a day and pioglitazone. She can be in touch with the office concerning her sugars. The patient needs further investigation of her chronic anemia. Subjective Subjective: Feels much improved Review of Systems Constitutional: Denies: chills, fever. Cardiovascular: Denies: chest pain. Respiratory: Denies: cough, short of breath. Gastrointestinal: Denies: abdominal pain, nausea, vomiting. Skin: Reports: no symptoms. Objective Last 24 Hrs of Vital Signs/I&O Vital Signs Date Time Temp Pulse Resp B/P B/P Pulse O2 O2 Flow FiO2 Mean Ox Delivery Rate 08/04 0648 98.8 100 18 96/52 93 Room Air / 2221 97.8 83 20 118/60 96 Room Air / 1414 98.9 87 22 122/60 92 Room Air Intake & Output 08/04 1600 / 0800 06/03 0000 Intake Total 240 480 Output Total 300 Balance 240 180 Intake, Oral 240 480 Number 0 0 Bowel Movements Output, Urine 300 Patient 116 lb Weight Weight Bed scale Measurement Method Vital Signs Date Time Temp Pulse Resp B/P B/P Pulse O2 O2 Flow FiO2 Mean Ox Delivery Rate / 0648 98.8 100 18 96/52 93 Room Air 06/ 2221 97.8 83 20 118/60 96 Room Air 06/02 1414 98.9 87 22 122/60 92 Room Air Intake & Output 08/04 1600 06/03 0800 06/03 0000 Intake Total 240 480 Output Total 300 Balance 240 180 Intake, Oral 240 480 Number 0 0 Bowel Movements Output, Urine 300 Patient 116 lb Weight Weight Bed scale Measurement Method Vital Signs Date Time Temp Pulse Resp B/P B/P Pulse O2 O2 Flow FiO2 Mean Ox Delivery Rate 08/04 0548 98.8 100 18 96/52 93 Room Air 08/03 2221 97.8 83 20 118/60 96 Room Air 08/03 1414 98.9 87 22 122/60 92 Room Air Intake & Output 08/04 1600 08/04 0800 / 0000 Intake Total 240 480 Output Total 300 Balance 240 180 Intake, Oral 240 480 Number 0 0 Bowel Movements Output, Urine 300 Patient 116 lb Weight Weight Bed scale Measurement Method Physical Exam General Appearance: alert, awake Head: normal appearance Neck: normal inspection Cardiovascular: regular rate/rhythm Abdomen: normal bowel sounds Extremities: normal inspection Current Medications: Current Medications Sig/Liliana Start time Last Medication Dose Route Stop Time Status Admin Acetaminophen 500 MG Q6P PRN 08/03 1215 AC PO Acetaminophen 650 MG .STK-MED ONE 08/03 1214 DC PO 08/03 1215 Aspirin 81 MG DAILY 08/03 0900 AC 08/04 PO 0943 Budesonide/ 2 PUF BID 08/02 2140 AC 08/04 Formoterol Fumarate INH 0944 Ceftriaxone Sodium 1,000 MG DAILY@1300 / 1300 AC 08/03 IV 1600 Diltiazem HCl 300 MG DAILY 08/03 0900 AC 08/04 PO 0943 Ezetimibe 10 MG DAILY 08/03 0900 AC 08/04 PO 0943 Insulin Aspart 0 TIDAC 08/04 0800 AC SC Insulin Detemir 6 UNITS DAILY 08/04 0900 AC 08/04 SC 0942 Insulin Detemir 10 UNITS DAILY 08/03 0900 DC 08/03 SC 1004 Levothyroxine Sodium 0.1 MG DAILY AC 08/03 0700 AC 08/04 PO 0554 Melatonin 5 MG AT BEDTIME 08/03 2100 AC 08/03 PO 2036 Metoprolol Succinate 50 MG DAILY 08/04 0900 AC PO Metoprolol Succinate 50 MG DAILY 08/03 1212 DC PO Montelukast Sodium 10 MG QPM 08/02 2145 AC 08/03 PO 2036 Omeprazole 20 MG DAILY AC 08/03 0700 AC 08/04 PO 0554 Sodium Bicarbonate 650 MG BID 08/02 2100 AC 08/04 PO 0943 Findings Pertinent Lab/Aries Results: Laboratory Tests 08/04 08/03 0607 0645 Chemistry Sodium (137 - 145 mmol/L) 138 Potassium (3.5 - 5.1 mmol/L) 4.3 Chloride (98 - 107 mmol/L) 109 H Carbon Dioxide (22 - 30 mmol/L) 18 L Anion Gap (5 - 16) 11 BUN (7 - 17 mg/dL) 9 Creatinine (0.5 - 1.0 mg/dL) 1.0 Estimated GFR (>60 ml/min) 54 L BUN/Creatinine Ratio (7 - 25 %) 9.0 Free T4 (0.78 - 2.44 ng/dL) 1.00 Thyroglobulin Pending Estradiol (E2) Level (pg/mL) 18.7 Prolactin (3.0 - 18.6 ng/mL) 13.9 Hematology CBC w Diff NO MAN DIFF REQ WBC (4.8 - 10.8 /CUMM) 5.3 RBC (4.20 - 5.40 /CUMM) 2.76 L Hgb (12.0 - 16.0 G/DL) 8.0 L Hct (37 - 47 %) 23.2 L MCV (81.0 - 99.0 FL) 84.3 MCH (27.0 - 31.0 PG) 29.0 MCHC (33.0 - 37.0 G/DL) 34.5 RDW (11.5 - 14.5 %) 15.4 H Plt Count (130 - 400 /CUMM) 269 MPV (7.4 - 10.4 FL) 7.2 L Gran % (42.2 - 75.2 %) 79.5 H Lymphocytes % (20.5 - 51.1 %) 11.9 L Monocytes % (1.7 - 9.3 %) 7.2 Eosinophils % (0 - 5 %) 1.1 Basophils % (0.0 - 2.0 %) 0.3 Absolute Granulocytes (1.4 - 6.5 /CUMM) 4.2 Absolute Lymphocytes (1.2 - 3.4 /CUMM) 0.6 L Absolute Monocytes (0.10 - 0.60 /CUMM) 0.4 Absolute Eosinophils (0.0 - 0.7 /CUMM) 0.1 Absolute Basophils (0.0 - 0.2 /CUMM) 0 Immunology Thyroglobulin Antibody Pending Thyroid Peroxidase Ab (< 61 U/mL) < 28 21-Hydroxylase Antibody Pending 0608/02 2300 2300 2120 2120 Chemistry Sodium (137 - 145 mmol/L) 131 L Potassium (3.5 - 5.1 mmol/L) 3.0 L Chloride (98 - 107 mmol/L) 104 Carbon Dioxide (22 - 30 mmol/L) 15 L Anion Gap (5 - 16) 12 BUN (7 - 17 mg/dL) 11 Creatinine (0.5 - 1.0 mg/dL) 1.0 Estimated GFR (>60 ml/min) 54 L BUN/Creatinine Ratio (7 - 25 %) 11.0 Lactic Acid (0.7 - 2.1 mmol/L) 0.8 Iron (37 - 170 ug/dL) 13 L TIBC (265 - 497 ug/dL) 273 Ferritin (11.1 - 264 ng/mL) 93.4 Urines Urine Color (YEL,AMB,STR) YEL Urine Clarity (CLEAR) HAZY H Urine pH (5.0 - 8.0) 7.0 Ur Specific [place] (1.001 - 1.035) 1.010 Urine Protein (NEG,<30 MG/DL) NEG Urine Ketones (NEG) NEG Urine Nitrite (NEG) POS H Urine Bilirubin (NEG) NEG Urine Urobilinogen (0.1 - 1.0 EU/dl) 0.2 Ur Leukocyte Esterase (NEG) LARGE H Ur Microscopic SEDIMENT EXAMINED Urine RBC (0 - 5 /HPF) 1-3 Urine WBC (0 - 2 /HPF) > 75 H Ur Epithelial Cells (NONE,FEW) RARE Urine Bacteria (NEG/NONE) MANY H Urine Hemoglobin (NEG) TRACE-INTACT Urine Osmolality (300 - 1000 MOSM/KG) 265 L Ur Random Creatinine (mg/dL) 31.5 Ur Random Sodium (30 - 90 mmol/L) 64 Ur Random Potassium (mmol/L) 24.2 Fraction Sodium Excret (<1% %) 1.6 H Urine Glucose (N MG/DL) NEG 08/02 08/02 08/02 1835 1343 1343 Chemistry Sodium (137 - 145 mmol/L) 129 L Potassium (3.5 - 5.1 mmol/L) 2.8 *L Chloride (98 - 107 mmol/L) 98 Carbon Dioxide (22 - 30 mmol/L) 17 L Anion Gap (5 - 16) 14 BUN (7 - 17 mg/dL) 15 Creatinine (0.5 - 1.0 mg/dL) 1.2 H Estimated GFR (>60 ml/min) 44 L BUN/Creatinine Ratio (7 - 25 %) 12.5 Glucose (65 - 99 mg/dL) 114 H Lactic Acid (0.7 - 2.1 mmol/L) 0.6 L Calcium (8.4 - 10.2 mg/dL) 10.0 Magnesium (1.6 - 2.3 mg/dL) 1.7 Total Bilirubin (0.2 - 1.3 mg/dL) 0.3 AST (14 - 36 U/L) 16 ALT (9 - 52 U/L) 25 Alkaline Phosphatase (<127 U/L) 63 Troponin I (< 0.11 ng/ml) 0.03 Total Protein (6.3 - 8.2 g/dL) 6.7 Albumin (3.5 - 5.0 g/dL) 3.5 Globulin (1.9 - 4.2 gm/dL) 3.2 Albumin/Globulin Ratio (1.1 - 2.2 %) 1.1 TSH &T3 &Free T4 Intrp (0.270 - 4.20 uIU/mL) 2.050 Cortisol AM Sample (4.46 - 22.7 ug/dL) 22.2 ACTH Stimulation Pending Hematology CBC w Diff NO MAN DIFF REQ WBC (4.8 - 10.8 /CUMM) 8.2 RBC (4.20 - 5.40 /CUMM) 3.21 L Hgb (12.0 - 16.0 G/DL) 9.4 L Hct (37 - 47 %) 27.0 L MCV (81.0 - 99.0 FL) 84.0 MCH (27.0 - 31.0 PG) 29.2 MCHC (33.0 - 37.0 G/DL) 34.8 RDW (11.5 - 14.5 %) 15.6 H Plt Count (130 - 400 /CUMM) 294 MPV (7.4 - 10.4 FL) 7.1 L Gran % (42.2 - 75.2 %) 90.5 H Lymphocytes % (20.5 - 51.1 %) 3.8 L Monocytes % (1.7 - 9.3 %) 4.5 Eosinophils % (0 - 5 %) 1.1 Basophils % (0.0 - 2.0 %) 0.1 Absolute Granulocytes (1.4 - 6.5 /CUMM) 7.4 H Absolute Lymphocytes (1.2 - 3.4 /CUMM) 0.3 L Absolute Monocytes (0.10 - 0.60 /CUMM) 0.4 Absolute Eosinophils (0.0 - 0.7 /CUMM) 0.1 Absolute Basophils (0.0 - 0.2 /CUMM) 0 ESR Westergren (0 - 20 MM) 113 H 08/02 1311 Hematology ESR Westergren Cancelled
[2017-08-04 14:15] VITALS: BP 112/50
[2017-08-04 22:13] VITALS: BP 120/50
[2017-08-05 06:53] VITALS: BP 96/52
--- NOTE | 2017-08-05 07:26 | PN- Housestaff ---
Luis DEL VALLE,[facility] 08/05/17 0725: Subjective Follow-up For: Lightheadedness/dizziness Tele-Events Since Last Visit: Of telemetry Subjective: Patient states she feels better, her lightheaded has resolved but does get lightheaded when walking around and has to use a walker. No overnight events. Review of Systems Constitutional: Reports: no symptoms. Cardiovascular: Reports: no symptoms. Respiratory: Reports: no symptoms. Gastrointestinal: Reports: no symptoms. Genitourinary: Reports: no symptoms. Objective Last 24 Hrs of Vital Signs/I&O Vital Signs Date Time Temp Pulse Resp B/P B/P Pulse O2 O2 Flow FiO2 Mean Ox Delivery Rate 08/05 1006 105 110/70 08/05 0653 98.7 97 20 96/52 97 Room Air 08/04 2213 98.8 89 20 120/50 100 Room Air 08/04 1656 80 112/50 08/04 1415 97.1 80 20 112/50 97 Room Air Intake & Output 08/05 1600 08/05 0800 08/05 0000 Intake Total 100 650 Output Total Balance 100 650 Intake, Oral 100 650 Patient 115 lb Weight Weight Bed scale Measurement Method Physical Exam General Appearance: Alert, Oriented X3, Cooperative Skin: No Rashes, No Breakdown Cardiovascular: Regular Rate, Normal S1, Normal S2 Lungs: Clear to Auscultation, Normal Air Movement Abdomen: Normal Bowel Sounds, Soft, No Tenderness Extremities: No Clubbing, No Cyanosis, No Edema Current Medications: Current Medications Sig/Liliana Start time Last Medication Dose Route Stop Time Status Admin Acetaminophen 500 MG Q6P PRN 08/03 1215 AC 08/05 PO 1006 Aspirin 81 MG DAILY 08/03 09 AC 08/05 PO 1006 Budesonide/ 2 PUF BID 08/02 2140 AC 08/05 Formoterol Fumarate INH 1007 Ceftriaxone Sodium 1,000 MG DAILY@1300 08/03 1300 AC 08/05 IV 08/05 1700 1322 Diltiazem HCl 300 MG DAILY 08/03 09 AC 08/05 PO 1006 Ezetimibe 10 MG DAILY 08/03 0900 AC 08/05 PO 1006 Glycerin 2 SPRAY Q2P PRN 08/05 0900 AC 08/05 PO 1007 Insulin Aspart 0 TIDAC 08/04 0800 DC 08/04 SC 1342 Insulin Detemir 6 UNITS DAILY 08/04 0900 DC 08/05 AL 1015 Levothyroxine Sodium 0.1 MG DAILY AC 08/03 07 AC 08/05 PO 0625 Magnesium Oxide 400 MG BID 08/05 1415 UNVr PO Melatonin 5 MG AT BEDTIME 08/03 2099 AC 08/03 PO 2036 Metoprolol Succinate 50 MG DAILY 08/04 0900 AC 08/05 PO 1006 Montelukast Sodium 10 MG QPM 08/02 2145 AC 08/04 PO 2125 Omeprazole 20 MG DAILY AC 08/03 07 AC 08/05 PO 0625 Pioglitazone HCl 30 MG DAILY 08/04 1215 AC 08/05 PO 1006 Sodium Bicarbonate 650 MG BID 08/02 2100 AC 08/05 PO 1006 Last 24 Hrs of Lab/Aries Results Last 24 Hrs of Labs/Mics: Laboratory Tests 08/05/17 1055: Anion Gap 13, Estimated GFR 54 L, BUN/Creatinine Ratio 8.0, Phosphorus 3.8, Magnesium 1.7 08/05/17 06: CBC w Diff NO MAN DIFF REQ, RBC 2.91 L, MCV 84.7, MCH 28.9, MCHC 34.1, RDW 16.2 H, MPV 7.0 L, Gran % 62.7, Lymphocytes % 17.1 L, Monocytes % 10.8 H, Eosinophils % 8.8 H, Basophils % 0.6, Absolute Granulocytes 2.2, Absolute Lymphocytes 0.6 L, Absolute Monocytes 0.4, Absolute Eosinophils 0.3, Absolute Basophils 0 Assessment/Plan Assessment: Patient is 77 y F with PMH of HTN, HLP, asthma, GERD, closed-angle glaucoma, DM, ??Temporal arteritis and hypothyroidism, recently discharged from [facility] after being treated for prednisone-induced hyperglycemia presented to the ED with chief complaint of lightheadedness and some dizziness which has been going on since her discharge from the hospital on July 24. Problem List 1. Lighthededness/Dizziness likely from dehydration from Diarrhea 2. Hypokalemia likely 2/2 Diarrhea - resolved 3. HENRY likely prerenal from dehydration - resolved 4. Chronic Hyponatremia 5. Chronic Anemia 6. Hx of HTN, HLD, asthma,COPD, GERD, closed-angle glaucoma, DM and hypothyroidism. 7. ?? UTI, Positive UA and Urine Cx but patient is afebrile, without any symptoms or WBC count. - Patient was started on pioglitazone(metformin discontinued for concerns of causing diarrhea) over the weekend. Blood Sugar this am was 60. Will discontinue insulin and continue pioglitazone. - Appreciate endo recommendations. - We'll check orthostatic vitals every shift. - ESR was 113 at the time of admission, will obtain rheumatology consult. - Will continue ceftriaxone. - Will check B12 and folate levels. - Continue rest of the home medications including metoprolol. DVT Prophylaxis; ALPS and S/C Heparin Patient is Full code. Problem List: 1. Chronic anemia 2. Elevated erythrocyte sedimentation rate Pain Ratin Pain Location: None Pain Goal: Remain pain free Pain Plan: Pain Pathway Tomorrow's Labs & Rationales: CBC( Chronic anemia) Maci Timmons MD 08/05/17 5387: Attending MD Review Statement Attending Statement Attending MD Statement: examined this patient, discuss w/resident/PA/VETERINARY TECHNOLOGY INSTRUCTOR, agreed w/resident/PA/VETERINARY TECHNOLOGY INSTRUCTOR, reviewed EMR data (avail) Attending Assessment/Plan: 77F PMH DM, HTN, HLD, asthma/COPD, hypothyroidism, lung nodules, recently diagnosed with temporal arteritis and placed on Prednisone, then admitted for lightheadedness and hyperglycemia, with Prednisone stopped by Dr. Tucker after low suspicion of temporal arteritis (no biopsy was done), and discharged home a week ago, presenting today with weakness and lightheadedness, found to be hypotensive, hypokalemic, hyponatremic, with vomiting and headache overnight. Improved with IV fluids. Now hemodynamically stable, labs improving. 1. Dehydartion secondary to acute gastroenteritis 2. HENRY 3. Hypokalemia 4. Type 2 hyperglycemia 5. UTI Plan - Continue on telemetry - Luz Marina endocrine and rheumatology recommendations - Monitor renal function - Continue CEftriaxone, 7 days of antibiotics - Continue home medications - Actos for DM - DVT PPx
[2017-08-05 08:11] LABS: ABSOLUTE BASOPHIL COUNT 0 /CUMM (0.0-0.2); ABSOLUTE EOSINOPHIL COUNT 0.3 /CUMM (0.0-0.7); ABSOLUTE GRANULOCYTE CT 2.2 /CUMM (1.4-6.5); ABSOLUTE LYMPH COUNT 0.6 /CUMM (1.2-3.4); ABSOLUTE MONOCYTE COUNT 0.4 /CUMM (0.10-0.60); BASOPHIL % 0.6 % (0.0-2.0); EOSINOPHIL % 8.8 % (0-5); GRANULOCYTE % 62.7 % (42.2-75.2); HEMATOCRIT 24.6 % (37-47); MEAN CORPUSCULAR HGB 28.9 PG (27.0-31.0); MEAN CORPUSCULAR HGB CONC 34.1 G/DL (33.0-37.0); MEAN CORPUSCULAR VOLUME 84.7 FL (81.0-99.0); PLATELET COUNT 343 /CUMM (130-400); RBC DISTRIBUTION WIDTH 16.2 % (11.5-14.5); RED BLOOD CELL CT 2.91 /CUMM (4.20-5.40); WHITE BLOOD CELL COUNT 3.5 /CUMM (4.8-10.8)
--- NOTE | 2017-08-05 08:34 | PN- Diabetes ---
Assessment/Plan Diabetes Assessment: The patient does not feel well. She states when she stands up and tries to walk she has no energy. I have checked her postural blood pressures today at the bedside. Her blood pressure is 110/70 sitting and 110/70 standing. The patient developed low blood sugar after lunch yesterday. She is currently on Levemir 6 units and sliding scale NovoLog before meals. Plan: The patient does not have postural hypotension. At this time I would like to stop all insulin and continue pioglitazone 30 mg once a day. The patient's blood work should be checked including BUN/creatinine electrolytes. Just the CBC was ordered today. Objective Last 24 Hrs of Vital Signs/I&O Vital Signs Date Time Temp Pulse Resp B/P B/P Pulse O2 O2 Flow FiO2 Mean Ox Delivery Rate 08/05 0553 98.7 97 20 96/52 97 Room Air 08/04 2213 98.8 89 20 120/50 100 Room Air 08/04 1656 80 112/50 08/04 1415 97.1 80 20 112/50 97 Room Air Intake & Output 08/05 1600 08/05 0808/05 0000 Intake Total 100 650 Output Total Balance 100 650 Intake, Oral 100 650 Patient 115 lb Weight Weight Bed scale Measurement Method Vital Signs Date Time Temp Pulse Resp B/P B/P Pulse O2 O2 Flow FiO2 Mean Ox Delivery Rate 08/05 0553 98.7 97 20 96/52 97 Room Air 08/04 2213 98.8 89 20 120/50 100 Room Air 08/04 1656 80 112/50 06/03 1415 97.1 80 20 112/50 97 Room Air Intake & Output 08/05 1600 08/05 0808/05 0000 Intake Total 100 650 Output Total Balance 100 650 Intake, Oral 100 650 Patient 115 lb Weight Weight Bed scale Measurement Method Current Medications: Current Medications Sig/Liliana Start time Last Medication Dose Route Stop Time Status Admin Acetaminophen 500 MG Q6P PRN 08/03 1215 AC PO Aspirin 81 MG DAILY 08/03 899 AC 08/04 PO 0943 Budesonide/ 2 PUF BID 08/02 2140 AC 08/04 Formoterol Fumarate INH 2125 Ceftriaxone Sodium 1,000 MG DAILY@1300 /02 1300 AC 08/04 IV 1314 Diltiazem HCl 300 MG DAILY 08/03 09 AC 08/04 PO 0943 Ezetimibe 10 MG DAILY 08/03 899 AC 08/04 PO 0943 Insulin Aspart 0 TIDAC 08/04 08 AC 08/04 SC 1342 Insulin Detemir 6 UNITS DAILY 08/04 899 AC 08/04 SC 0942 Levothyroxine Sodium 0.1 MG DAILY AC 08/03 07 AC 08/05 PO 0625 Melatonin 5 MG AT BEDTIME 08/03 2099 AC 08/03 PO 2036 Metoprolol Succinate 50 MG DAILY 08/04 09 AC 08/04 PO 1656 Montelukast Sodium 10 MG QPM 08/02 2145 AC 08/04 PO 2125 Omeprazole 20 MG DAILY AC 08/03 07 AC 08/05 PO 0625 Pioglitazone HCl 30 MG DAILY 08/04 1215 AC 08/04 PO 1312 Sodium Bicarbonate 650 MG BID 08/02 2099 AC 08/04 PO 2124 Findings Pertinent Lab/Aries Results: Laboratory Tests 08/05 08/04 0623 0607 Chemistry Thyroglobulin Pending Hematology CBC w Diff NO MAN DIFF REQ WBC (4.8 - 10.8 /CUMM) 3.5 L RBC (4.20 - 5.40 /CUMM) 2.91 L Hgb (12.0 - 16.0 G/DL) 8.4 L Hct (37 - 47 %) 24.6 L MCV (81.0 - 99.0 FL) 84.7 MCH (27.0 - 31.0 PG) 28.9 MCHC (33.0 - 37.0 G/DL) 34.1 RDW (11.5 - 14.5 %) 16.2 H Plt Count (130 - 400 /CUMM) 343 MPV (7.4 - 10.4 FL) 7.0 L Gran % (42.2 - 75.2 %) 62.7 Lymphocytes % (20.5 - 51.1 %) 17.1 L Monocytes % (1.7 - 9.3 %) 10.8 H Eosinophils % (0 - 5 %) 8.8 H Basophils % (0.0 - 2.0 %) 0.6 Absolute Granulocytes (1.4 - 6.5 /CUMM) 2.2 Absolute Lymphocytes (1.2 - 3.4 /CUMM) 0.6 L Absolute Monocytes (0.10 - 0.60 /CUMM) 0.4 Absolute Eosinophils (0.0 - 0.7 /CUMM) 0.3 Absolute Basophils (0.0 - 0.2 /CUMM) 0 Immunology Thyroglobulin Antibody Pending 21-Hydroxylase Antibody Pending
[2017-08-05 15:28] VITALS: BP 102/60
[2017-08-05 21:07] VITALS: BP 116/54
[2017-08-05 21:19] VITALS: BP 100/44
[2017-08-06 06:56] VITALS: BP 106/50
--- NOTE | 2017-08-06 07:31 | PN- Housestaff ---
See Addendum Subjective Follow-up For: Chronic fatigue Tele-Events Since Last Visit: No telemetry Subjective: No overnight events. Patient continues to feel fatigued and continues to have headaches. However she notes the headaches are not on the temporal size but rather in the front now. She has no tenderness when touching her head. She also denies jaw pain. She has no chest pain, shortness of breath, or further diarrhea. Review of Systems Constitutional: Reports: see HPI. EENTM: Reports: no symptoms. Cardiovascular: Reports: no symptoms. Respiratory: Reports: no symptoms. Gastrointestinal: Reports: no symptoms. Genitourinary: Reports: no symptoms. Musculoskeletal: Reports: no symptoms. Skin: Reports: no symptoms. Neurological/Psychological: Reports: no symptoms. Hematologic/Endocrine: Reports: no symptoms. Immunologic/Allergic: Reports: no symptoms. Objective Last 24 Hrs of Vital Signs/I&O Vital Signs Date Time Temp Pulse Resp B/P B/P Pulse O2 O2 Flow FiO2 Mean Ox Delivery Rate 08/06 0556 98.7 70 18 106/50 98 Room Air 08/06 0000 Room Air 08/05 2119 86 100/44 08/05 2107 98.9 88 20 116/54 95 /04 1528 97.8 82 20 102/60 96 / 1006 105 110/70 Intake & Output 08/06 0800 / 0000 08/05 1600 Intake Total 220 350 500 Output Total Balance 220 350 500 Intake, Oral 220 350 500 Number 0 Bowel Movements Patient 50.519 kg Weight Weight Bed scale Measurement Method Physical Exam General Appearance: Alert, Oriented X3, Cooperative, No Acute Distress Cardiovascular: Regular Rate, Normal S1, Normal S2 Lungs: Clear to Auscultation Abdomen: Normal Bowel Sounds, Soft, No Tenderness Neurological: Normal Speech Extremities: No Edema, Normal Pulses, No Tenderness/Swelling Current Medications: Current Medications Sig/Liliana Start time Last Medication Dose Route Stop Time Status Admin Acetaminophen 500 MG .STK-MED ONE 08/05 2122 DC PO 08/06 2123 Acetaminophen 500 MG Q6P PRN 08/03 1215 AC 08/05 PO 2131 Aspirin 81 MG DAILY 08/03 0900 AC 08/05 PO 1006 Budesonide/ 2 PUF BID 08/03 2139 AC 08/05 Formoterol Fumarate INH 213 Ceftriaxone Sodium 1,000 MG DAILY@1300 08/03 1300 AC 08/05 IV 08/09 1700 1322 Diltiazem HCl 300 MG DAILY 08/03 0900 AC 08/05 PO 1006 Ezetimibe 10 MG DAILY 08/03 0900 AC 08/05 PO 1006 Ferrous Sulfate 325 MG DAILY 08/06 0900 AC PO Glycerin 2 SPRAY Q2P PRN 08/05 0900 AC 08/05 PO 1007 Insulin Aspart 0 TIDAC 08/04 0800 DC 08/04 SC 1342 Insulin Detemir 6 UNITS DAILY 08/04 0900 DC 08/05 SC 1015 Levothyroxine Sodium 0.1 MG DAILY AC 08/03 0700 AC 08/06 PO 0622 Magnesium Oxide 400 MG BID 08/05 1415 AC 08/05 PO 2132 Melatonin 5 MG AT BEDTIME 08/03 2100 AC 08/03 PO 2036 Metoprolol Succinate 50 MG DAILY 08/04 0900 AC 08/05 PO 1006 Montelukast Sodium 10 MG QPM 08/02 2145 AC 08/05 PO 2132 Omeprazole 20 MG DAILY AC 08/03 0700 AC 08/06 PO 0622 Pioglitazone HCl 30 MG DAILY 08/04 1215 AC 08/05 PO 1006 Sodium Bicarbonate 650 MG BID 08/02 2100 AC 08/05 PO 2131 Last 24 Hrs of Lab/Aries Results Last 24 Hrs of Labs/Mics: Laboratory Tests 08/06/17 0625: Sodium Pending, Potassium Pending, Chloride Pending, Carbon Dioxide Pending, Anion Gap Pending, BUN Pending, Creatinine Pending, BUN/Creatinine Ratio Pending , CBC w Diff Pending, WBC Pending, RBC Pending, Hgb Pending, Hct Pending, MCV Pending, MCH Pending, MCHC Pending, RDW Pending, Plt Count Pending, MPV Pending 08/05/17 1413: Folate Cancelled 08/05/17 1055: Anion Gap 13, Estimated GFR 54 L, BUN/Creatinine Ratio 8.0, Phosphorus 3.8, Magnesium 1.7, Vitamin B12 > 1000 H, Folate > 20.0 H 08/05/17 1000: Vitamin B12 Cancelled Assessment/Plan Assessment: Ms. Myers is a 77 y F with PMH of HTN, HLP, asthma, GERD, closed-angle glaucoma, DM, ??Temporal arteritis and hypothyroidism, recently discharged from [facility] after being treated for prednisone-induced hyperglycemia presented to the ED with chief complaint of lightheadedness and some dizziness which has been going on since her discharge from the hospital on July 24. Problem List: 1. Fatigue 2. Acute gastroenteritis, resolved 3. Acute kidney injury, resolved 4. Chronic hyponatremia 5. Anemia of chronic disease 6. Asymptomatic bactiuria #Fatigue: The patient's main complaint at this point is fatigue. She has an elevated ESR with labs consistent with anemia of chronic disease. She previously saw Dr. Tucker on her recent admission for concern for temporal arteritis. However her ESR subsequently normalized before coming back up to 113. She no longer has temporal headaches but does have frontal headaches. There is no tenderness to temporal region and no jaw pain. I have a low suspicion for GCA at this point. Etiology of her fatigue is unclear at this time but is concerning for malignancy versus rheumatological issue versus bone marrow failure. -Reticulocyte count, LDH, haptoglobin -Rheumatology consult/outpatient referral -Consider hematology consult/outpatient referral -Appreciate endocrinology recommendations -HIV -Creatinine kinase -Guiaic all stools -SPEP, UPEP, FTC, quantitative immunoglobulins #Asymptomatic bactiuria: On presentation, patient had positive urinalysis and now has intact Enterobacter growing in her urine. However she has not had any symptoms and no fever or leukocytosis. She has received 4 days of antibiotics. -Stop ceftriaxone #Chronic hyponatremia: Sodium is actually normal today. -Continue to monitor #Chronic medical problems: -Continue other home medications -Continue pioglitazone DVT prophylaxis with enoxaparin Consistent carbohydrate two diet Full code Problem List: 1. Chronic anemia Pain Ratin Pain Location: no Pain Goal: Remain pain free Pain Plan: sdee a/p Tomorrow's Labs & Rationales: cbc, bep
--- NOTE | 2017-08-06 07:36 | PN- Diabetes ---
Assessment/Plan Diabetes Assessment: The patient still does not feel right. We stopped all of her insulin yesterday. She is on pioglitazone 30 mg daily for treatment of her diabetes. Her blood sugar this morning is in good range. The patient has a mildly low sodium with normal BUN and creatinine. Although she entered the hospital with dehydration the picture is not consistent with dehydration at this time. It is more consistent with an SIADH type picture. The patient is not on any drugs that should cause low sodium. The patient has had some borderline calciums in the past. We should investigate her calcium metabolism further. She also has a very high sed rate and the reason for this has not been well explained. Occult malignancy or possible rheumatologic disorder is still a consideration. Plan: Suggest continue the patient off insulin. Continue pioglitazone. The patient remains extremely anemic and the cause of the anemia is not certain. The patient also has a high sedimentation rate. She could have underlying malignancy or she could have a rheumatologic disorder. I would recommend a hematology consult. The patient probably needs a bone marrow aspiration done. With regard to her calcium metabolism I would check a repeat serum calcium, albumin, 25-hydroxy vitamin D, 1,25 dihydroxy vitamin D, and PTH level on fasting blood work. An SPEP and IPEP should also be done to rule out myeloma. Subjective Subjective: Still does not feel right. Review of Systems Constitutional: Denies: chills, fever. Cardiovascular: Denies: chest pain. Respiratory: Denies: cough, short of breath. Gastrointestinal: Denies: abdominal pain. Skin: Reports: no symptoms. Objective Last 24 Hrs of Vital Signs/I&O Vital Signs Date Time Temp Pulse Resp B/P B/P Pulse O2 O2 Flow FiO2 Mean Ox Delivery Rate 08/07 655 98.7 70 18 106/50 98 Room Air 08/06 0000 Room Air 08/05 2119 86 100/44 08/05 2107 98.9 88 20 116/54 95 06/04 1528 97.8 82 20 102/60 96 / 1006 105 110/70 Intake & Output 08/06 0800 08/06 0000 08/05 1600 Intake Total 220 350 500 Output Total Balance 220 350 500 Intake, Oral 220 350 500 Number 0 Bowel Movements Patient 111 lb Weight Weight Bed scale Measurement Method Vital Signs Date Time Temp Pulse Resp B/P B/P Pulse O2 O2 Flow FiO2 Mean Ox Delivery Rate 08/07 655 98.7 70 18 106/50 98 Room Air / 0000 Room Air 08/05 2119 86 100/44 / 210 98.9 88 20 116/54 95 / 1528 97.8 82 20 102/60 96 / 1006 105 110/70 Intake & Output 08/06 0800 / 0000 08/05 1600 Intake Total 220 350 500 Output Total Balance 220 350 500 Intake, Oral 220 350 500 Number 0 Bowel Movements Patient 111 lb Weight Weight Bed scale Measurement Method Physical Exam General Appearance: alert, awake, anxious Head: normal appearance Neck: normal inspection Respiratory: normal breath sounds Cardiovascular: regular rate/rhythm Abdomen: normal bowel sounds Extremities: normal inspection Current Medications: Current Medications Sig/Liliana Start time Last Medication Dose Route Stop Time Status Admin Acetaminophen 500 MG .STK-MED ONE 08/05 2122 DC PO 08/06 2123 Acetaminophen 500 MG Q6P PRN 08/03 1215 AC 08/05 PO 2131 Aspirin 81 MG DAILY 08/03 09 AC 08/05 PO 1006 Budesonide/ 2 PUF BID 08/02 214 AC 08/05 Formoterol Fumarate INH 2132 Ceftriaxone Sodium 1,000 MG DAILY@1300 / 1300 AC 08/05 IV 08 1700 1322 Diltiazem HCl 300 MG DAILY 08/03 0900 AC 08/05 PO 1006 Ezetimibe 10 MG DAILY 08/03 0900 AC 08/05 PO 1006 Ferrous Sulfate 325 MG DAILY 08/06 0900 CAN PO Glycerin 2 SPRAY Q2P PRN 08/05 0900 AC 08/05 PO 1007 Insulin Aspart 0 TIDAC 08/04 0800 DC 08/04 SC 1342 Insulin Detemir 6 UNITS DAILY 08/04 0900 DC 08/05 SC 1015 Levothyroxine Sodium 0.1 MG DAILY AC 08/03 0700 AC 08/06 PO 0622 Magnesium Oxide 400 MG BID 08/05 1415 AC 08/05 PO 2132 Melatonin 5 MG AT BEDTIME 08/03 2100 AC 08/03 PO 2036 Metoprolol Succinate 50 MG DAILY 08/04 0900 AC 08/05 PO 1006 Montelukast Sodium 10 MG QPM 08/02 2145 AC 08/05 PO 2132 Omeprazole 20 MG DAILY AC 08/03 0700 AC 08/06 PO 0622 Pioglitazone HCl 30 MG DAILY 08/04 1215 AC 08/05 PO 1006 Sodium Bicarbonate 650 MG BID 08/02 2100 AC 08/05 PO 2131 Findings Pertinent Lab/Aries Results: Laboratory Tests 08/06 08/06 08/05 08/05 08/05 0625 0600 1413 1055 UNK Chemistry Sodium (137 - 145 mmol/L) Pending 135 L Potassium (3.5 - 5.1 mmol/L) Pending 3.7 Chloride (98 - 107 mmol/L) Pending 102 Carbon Dioxide (22 - 30 mmol/L) Pending 19 L Anion Gap (5 - 16) Pending 13 BUN (7 - 17 mg/dL) Pending 8 Creatinine (0.5 - 1.0 mg/dL) Pending 1.0 Estimated GFR (>60 ml/min) 54 L BUN/Creatinine Ratio (7 - 25 %) Pending 8.0 Phosphorus (2.5 - 4.5 mg/dL) 3.8 Magnesium (1.6 - 2.3 mg/dL) 1.7 Lactate Dehydrogenase Pending Vitamin B12 (239 - 931 pg/mL) > 1000 H Cancelled Folate (2.76 - 20.0 ng/mL) Cancelled > 20.0 H Hematology CBC w Diff Pending WBC Pending RBC Pending Hgb Pending Hct Pending MCV Pending MCH Pending MCHC Pending RDW Pending Plt Count Pending MPV Pending Retic Count Pending Haptoglobin Pending 08/05 622 Hematology CBC w Diff NO MAN DIFF REQ WBC (4.8 - 10.8 /CUMM) 3.5 L RBC (4.20 - 5.40 /CUMM) 2.91 L Hgb (12.0 - 16.0 G/DL) 8.4 L Hct (37 - 47 %) 24.6 L MCV (81.0 - 99.0 FL) 84.7 MCH (27.0 - 31.0 PG) 28.9 MCHC (33.0 - 37.0 G/DL) 34.1 RDW (11.5 - 14.5 %) 16.2 H Plt Count (130 - 400 /CUMM) 343 MPV (7.4 - 10.4 FL) 7.0 L Gran % (42.2 - 75.2 %) 62.7 Lymphocytes % (20.5 - 51.1 %) 17.1 L Monocytes % (1.7 - 9.3 %) 10.8 H Eosinophils % (0 - 5 %) 8.8 H Basophils % (0.0 - 2.0 %) 0.6 Absolute Granulocytes (1.4 - 6.5 /CUMM) 2.2 Absolute Lymphocytes (1.2 - 3.4 /CUMM) 0.6 L Absolute Monocytes (0.10 - 0.60 /CUMM) 0.4 Absolute Eosinophils (0.0 - 0.7 /CUMM) 0.3 Absolute Basophils (0.0 - 0.2 /CUMM) 0
[2017-08-06 07:58] LABS: ABSOLUTE BASOPHIL COUNT 0 /CUMM (0.0-0.2); ABSOLUTE EOSINOPHIL COUNT 0.3 /CUMM (0.0-0.7); ABSOLUTE GRANULOCYTE CT 2.1 /CUMM (1.4-6.5); ABSOLUTE LYMPH COUNT 0.6 /CUMM (1.2-3.4); ABSOLUTE MONOCYTE COUNT 0.4 /CUMM (0.10-0.60); BASOPHIL % 0.6 % (0.0-2.0); GRANULOCYTE % 59.9 % (42.2-75.2); HEMATOCRIT 23.7 % (37-47); MEAN CORPUSCULAR HGB 28.8 PG (27.0-31.0); MEAN CORPUSCULAR HGB CONC 34.4 G/DL (33.0-37.0); MEAN CORPUSCULAR VOLUME 83.9 FL (81.0-99.0); MEAN PLATELET VOLUME 6.9 FL (7.4-10.4); PLATELET COUNT 347 /CUMM (130-400); RED BLOOD CELL CT 2.83 /CUMM (4.20-5.40); WHITE BLOOD CELL COUNT 3.5 /CUMM (4.8-10.8)
[2017-08-06] MEDS ORDERED: ACTOS30 M1 PO (09:04)
--- NOTE | 2017-08-06 09:51 | Patient Discharge Instructions ---
Discharge Instructions General Discharge Information You were seen/treated for: Chronic fatigue, gastroenteritis Watch for these problems: Fever, chest pain, shortness of breath Special Instructions: Please follow up with your PCP, orthotic/prosthetic practitioner, insurance sales supervisor, and formal waiter/waitress after discharge. Please check your sugar before breakfast and before dinner. Diet Continue normal diet: Yes Recommended Diet: Diabetic Activity Full Activity/No Limits: Yes Activity Self Limited: Yes Acute Coronary Syndrome Inclusion Criteria At DC or during hospital stay patient has or had the following: ACS DIAGNOSIS No Discharge Core Measures Meds if any: Prescribed or Continued at Discharge Meds if any: NOT Prescribed or Continued at Discharge Congestive Heart Failure Inclusion Criteria At DC or during hospital stay patient has or had the following: CHF DIAGNOSIS No Discharge Core Measures Meds if any: Prescribed or Continued at Discharge Meds if any: NOT Prescribed or Continued at Discharge Cerebrovascular accident Inclusion Criteria At DC or during hospital stay patient has or had the following: CVA/TIA Diagnosis No Discharge Core Measures Meds if any: Prescribed or Continued at Discharge Meds if any: NOT Prescribed or Continued at Discharge Venous thromboembolism Inclusion Criteria VTE Diagnosis No VTE Type NONE VTE Confirmed by (Test) NONE Discharge Core Measures - Per Current guidelines, there needs to be overlap - treatment for the first 5 days of Warfarin therapy. - If discharged on Warfarin prior to 5 days of - overlap therapy, the patient will need to be - assessed for post discharge needs including - *Post discharge parental anticoagulation - *Warfarin and/or parental anticoagulation education - *Follow up date to check INR post discharge At least 5 days overlap therapy as Inpatient No Meds if any: Prescribed or Continued at Discharge Note: Overlap Therapy is Warfarin and Anticoagulant Meds if any: NOT Prescribed or Continued at Discharge
[2017-08-06 14:01] VITALS: BP 120/54
--- NOTE | 2017-08-06 15:23 | Cons- Hematology ---
General Information and HPI Consulting Request Date of Consult: 08/06/17 Requested By: Bertha Cui MD Reason for Consult: anemia Source of Information: patient, family, old records Exam Limitations: no limitations History of Present Illness: Ms. Myers is a 77-year-old female with HTN, HLD, asthma, GERD, galucoma, DM, and chronic anemia who presented to the hospital with fatigue, weakness, dizziness, and low blood pressure at home. She has not been feeling well for about a month now. She was recently discharged from [facility] for hyperglycemia and her symptoms have been on going since that time (07/22/2017-). She has been unsteady. She also noted diarrhea over the last few days prior to admission. She has had weight loss since 2013. She has had about a 20-25 lbs unintentional weight loss. She denies any fever or night sweats. She does get chills at time. She denies any new pain. She does have some back pain. On presentation, she was noted to have hypokalemia, hyponatremia, and anemic. She has been anemic since 2013 per the patient. She has been worked up extensively by her primary care physician and manager of program. She has had EGD, colonoscopy, and PillCam done. She was not noted to have any malignancy. She has had work up due to elevated ESR. She has seen Dr. Tucker of rheumatology and was noted to have elevated ESR. CCP and RF were also elevated. She has tried prednisone but had severe hyperglycemia which prevented him from continuing prednisone. She also noted filling cold in her fingers at times. She has had SPEP repeated twice and was noted to be in. Her IgG is also elevated. Allergies/Medications Allergies: Coded Allergies: erythromycin base (Intermediate, PALPITATIONS 08/06/17) Home Med List: Aspirin (Aspirin*) 81 MG TAB.CHEW 1 TAB PO DAILY HEART HEALTH (Reported) Cholecalciferol (Vitamin D3) (Vitamin D3) 1,000 UNIT CAPSULE 1 CAP PO DAILY BONE STRENGTH (Reported) Cyanocobalamin (Vitamin B-12) 1,000 MCG TABLET 500 MG PO DAILY HEART HEALTH ( Reported) Diltiazem HCl (Cardizem Cd) 300 MG CAP.ER.24H 1 CAP PO DAILY VENTRICULAR ECTOPY (Reported) Ezetimibe (Zetia) 10 MG TABLET 1 TAB PO DAILY HLP (Reported) Fluticasone/Vilanterol (Breo Ellipta 100-25 Mcg INH) 100 MCG-25 MCG/DOSE BLST.W.DEV 2 PUFF INH DAILY PRN SOB (Reported) Insulin Detemir (Levemir) 100 UNIT/ML VIAL 10 UNITS SC DAILY DM . Levothyroxine Sodium (Synthroid) 100 MCG TABLET 1 TAB PO DAILY HYPOTHYRODISM (Reported) Metformin HCl (Glucophage) 1,000 MG TABLET 1 TAB PO BID DM (Reported) Metoprolol Succinate 100 MG TAB.ER.24H 0.5 TAB PO DAILY HTN Montelukast Sodium 10 MG TABLET 1 TAB PO DAILY ALLERGIES (Reported) Omeprazole 20 MG CAPSULE.DR 1 CAP PO DAILY ACID REFLUX (Reported) Pen Needle, Diabetic (Pen Needle) 30 GAUGE X 5/16" DIS.NEEDLE 1 UNIT SC ONCE DAILY DM PLEASE USE THE NEEDLES FOR FLEX INSULIN LEVEMIR PEN Pioglitazone HCl (Actos) 30 MG TABLET 1 TAB PO DAILY DIABETES Sodium Bicarbonate 650 MG TABLET 1 TAB PO BID VITAMIN SUPPORT (Reported) Current Medications: Current Medications Sig/Liliana Start time Last Medication Dose Route Stop Time Status Admin Acetaminophen 500 MG .STK-MED ONE 08/05 2122 DC PO 08/05 212 Acetaminophen 500 MG Q6P PRN 08/03 1215 AC 08/05 PO 2131 Aspirin 81 MG DAILY 08/03 899 AC 08/06 PO 0832 Budesonide/ 2 PUF BID 08/02 2140 AC 08/06 Formoterol Fumarate INH 0833 Ceftriaxone Sodium 1,000 MG DAILY@1300 08/03 1300 DC 08/05 IV 08/09 1700 1322 Diltiazem HCl 300 MG DAILY 08/03 09 AC 08/06 PO 0832 Enoxaparin Sodium 40 MG DAILY 08/06 0930 DC SC Ezetimibe 10 MG DAILY 08/03 0900 AC 08/06 PO 0831 Ferrous Sulfate 325 MG DAILY 08/06 0900 CAN PO Glycerin 2 SPRAY Q2P PRN 08/05 0900 AC 08/05 PO 1007 Levothyroxine Sodium 0.1 MG DAILY AC 08/03 0700 AC 08/06 PO 0622 Magnesium Oxide 400 MG BID 08/05 1415 AC 08/06 PO 0832 Melatonin 5 MG AT BEDTIME 08/03 2100 AC 08/03 PO 2036 Metoprolol Succinate 50 MG DAILY 08/04 0900 AC 08/06 PO 0831 Montelukast Sodium 10 MG QPM 08/02 2145 AC 08/05 PO 2132 Omeprazole 20 MG DAILY AC 08/03 0700 AC 08/06 PO 0622 Pioglitazone HCl 30 MG DAILY 08/04 1215 AC 08/06 PO 0832 Sodium Bicarbonate 650 MG BID 08/02 2100 AC 08/06 PO 0832 Review of Systems Review of Systems Constitutional: Reports: malaise, weakness, unexplained weight loss. Denies: chills, diaphoresis, fever. EENTM: Denies: blurred vision, double vision. Cardiovascular: Denies: chest pain. Respiratory: Denies: cough, hemoptysis, orthopnea, short of breath. GI: Reports: diarrhea. Denies: abdominal pain, bloating. Genitourinary: Denies: dysuria. Musculoskeletal: Reports: back pain, muscle pain. Skin: Denies: dryness, erythema. Neurological/Psychological: Reports: anxiety, depressed. Denies: confusion. Hematologic/Endocrine: Denies: bruising, bleeding. Immunologic/Allergic: Denies: splenectomy. All Other Systems: Reviewed and Negative Past History Travel History Traveled to [place] past 21 day No Medical History Neurological: NONE EENT: glaucoma Cardiovascular: hypertension, HIGH CHOLESTEROL Respiratory: asthma, COPD Gastrointestinal: GERD Hepatic: NONE Renal: NONE Musculoskeletal: NONE Psychiatric: NONE Endocrine: diabetes, HYPOTHYROIDISM Blood Disorders: NONE Cancer(s): NONE DIRECTOR OF SAFETY AND SECURITY/Reproductive: NONE Surgical History Surgical History: hysterectomy Psychosocial History Where Do You Live? Home Services at Home: None Smoking Status: Former Smoker ETOH Use: denies use Illicit Drug Use: denies illicit drug use Functional Ability Ambulation: independent Exam & Diagnostic Data Vital Signs and I&O Vital Signs Date Time Temp Pulse Resp B/P B/P Pulse O2 O2 Flow FiO2 Mean Ox Delivery Rate 08/06 1401 97.5 87 20 120/54 98 Room Air / 0656 98.7 70 18 106/50 98 Room Air 08/06 0000 Room Air 08/05 2119 86 100/44 / 2107 98.9 88 20 116/54 95 / 1528 97.8 82 20 102/60 96 Intake & Output 08/06 1600 08/06 0800 06/ 0000 Intake Total 580 220 350 Output Total 1 Balance 579 220 350 Intake, Oral 580 220 350 Number 1 0 Bowel Movements Output, Stool 1 Patient 50.519 kg Weight Weight Bed scale Measurement Method Physical Exam General Appearance: well developed/nourished, no apparent distress, alert, awake , comfortable, thin Head: atraumatic, normal appearance Eyes: Bilateral: PERRL, EOMI. Neck: normal inspection, supple Respiratory: normal breath sounds, chest non-tender, no respiratory distress, quiet respiration Cardiovascular: regular rate/rhythm Gastrointestinal: normal bowel sounds, soft Back: normal inspection Extremities: no edema Neurologic/Psych: awake, alert, oriented x 3 Cranial Nerves: normal speech, PERRL, hard of hearing Skin: warm/dry, cyanosis, diaphoresis Lymphatic: no anterior cervical tigre Last 48 Hours of Lab Results: Laboratory Tests 08/06 08/06 08/05 0625 0600 1413 Chemistry Sodium (137 - 145 mmol/L) 142 Potassium (3.5 - 5.1 mmol/L) 3.9 Chloride (98 - 107 mmol/L) 107 Carbon Dioxide (22 - 30 mmol/L) 23 Anion Gap (5 - 16) 12 BUN (7 - 17 mg/dL) 7 Creatinine (0.5 - 1.0 mg/dL) 0.9 Estimated GFR (>60 ml/min) > 60 BUN/Creatinine Ratio (7 - 25 %) 7.8 Calcium (8.4 - 10.2 mg/dL) 10.1 Lactate Dehydrogenase (313 - 618 U/L) 348 Creatine Kinase (30 - 135 U/L) 62 Prot Electrophoresis Pending Total Protein (PEP) Pending Albumin (3.5 - 5.0 g/dL) 3.0 L Albumin % (PEP) Pending Xhndb-[id number] Pending Ncgil-0-Rgrceulzp Pending Glru-8-Qsjvewoq Pending Dwbu-5-Uuwjnapn Pending Gamma Globulins Pending Abnorm Protein Band 1 Pending Abnorm Protein Band 2 Pending Abnorm Protein Band 3 Pending 25-OH Vitamin D Total (30 - 100 ng/ml) 38.2 Folate Cancelled PTH Intact (18.4 - 80.1 pg/ML) 15.6 L Hematology CBC w Diff MAN DIFF ORDERED WBC (4.8 - 10.8 /CUMM) 3.5 L RBC (4.20 - 5.40 /CUMM) 2.83 L Hgb (12.0 - 16.0 G/DL) 8.1 L Hct (37 - 47 %) 23.7 L MCV (81.0 - 99.0 FL) 83.9 MCH (27.0 - 31.0 PG) 28.8 MCHC (33.0 - 37.0 G/DL) 34.4 RDW (11.5 - 14.5 %) 16.0 H Plt Count (130 - 400 /CUMM) 347 MPV (7.4 - 10.4 FL) 6.9 L Gran % (42.2 - 75.2 %) 59.9 Lymphocytes % (20.5 - 51.1 %) 17.7 L Monocytes % (1.7 - 9.3 %) 12.8 H Eosinophils % (0 - 5 %) 9.0 H Basophils % (0.0 - 2.0 %) 0.6 Absolute Granulocytes (1.4 - 6.5 /CUMM) 2.1 Segmented Neutrophils (42.2 - 75.2 %) 67 Band Neutrophils (0.0 - 5.0 %) 3 Absolute Lymphocytes (1.2 - 3.4 /CUMM) 0.6 L Lymphocytes (20.5 - 51.1 %) 13 L Monocytes (1.7 - 9.3 %) 8 Absolute Monocytes (0.10 - 0.60 /CUMM) 0.4 Eosinophils (0 - 5.0 %) 9 H Absolute Eosinophils (0.0 - 0.7 /CUMM) 0.3 Absolute Basophils (0.0 - 0.2 /CUMM) 0 Platelet Estimate (ADEQUATE) VERIFIED BY SMEAR Normocytic RBCs VERIFIED Normochromic RBCs VERIFIED Retic Count (0.5 - 2.0 %) 1.26 Haptoglobin Pending Immunology IgA Pending IgM Pending Miscellaneous Ref Lab Test Result Pending Other Body Source Serum IgG Pending Serology HIV 1&2 Ab Western Blot (NONREACTIVE) NONREACTIVE 08/05 08/05 08/05 1055 UNK 0623 Chemistry Sodium (137 - 145 mmol/L) 135 L Potassium (3.5 - 5.1 mmol/L) 3.7 Chloride (98 - 107 mmol/L) 102 Carbon Dioxide (22 - 30 mmol/L) 19 L Anion Gap (5 - 16) 13 BUN (7 - 17 mg/dL) 8 Creatinine (0.5 - 1.0 mg/dL) 1.0 Estimated GFR (>60 ml/min) 54 L BUN/Creatinine Ratio (7 - 25 %) 8.0 Phosphorus (2.5 - 4.5 mg/dL) 3.8 Magnesium (1.6 - 2.3 mg/dL) 1.7 Vitamin B12 (239 - 931 pg/mL) > 1000 H Cancelled Folate (2.76 - 20.0 ng/mL) > 20.0 H Hematology CBC w Diff NO MAN DIFF REQ WBC (4.8 - 10.8 /CUMM) 3.5 L RBC (4.20 - 5.40 /CUMM) 2.91 L Hgb (12.0 - 16.0 G/DL) 8.4 L Hct (37 - 47 %) 24.6 L MCV (81.0 - 99.0 FL) 84.7 MCH (27.0 - 31.0 PG) 28.9 MCHC (33.0 - 37.0 G/DL) 34.1 RDW (11.5 - 14.5 %) 16.2 H Plt Count (130 - 400 /CUMM) 343 MPV (7.4 - 10.4 FL) 7.0 L Gran % (42.2 - 75.2 %) 62.7 Lymphocytes % (20.5 - 51.1 %) 17.1 L Monocytes % (1.7 - 9.3 %) 10.8 H Eosinophils % (0 - 5 %) 8.8 H Basophils % (0.0 - 2.0 %) 0.6 Absolute Granulocytes (1.4 - 6.5 /CUMM) 2.2 Absolute Lymphocytes (1.2 - 3.4 /CUMM) 0.6 L Absolute Monocytes (0.10 - 0.60 /CUMM) 0.4 Absolute Eosinophils (0.0 - 0.7 /CUMM) 0.3 Absolute Basophils (0.0 - 0.2 /CUMM) 0 Imaging/Other Studies: CT Chest 07/24/2017: LUNGS AND PLEURA: Trachea and central airways are widely patent and normal in caliber. Itig-iu-sbhoggjl centrilobular emphysema has an upper lobe predominance. Multiple old small bilateral nodular opacities, and some of the nodular foci represent mucous plugging within peripheral bronchi. Within the posterior segment of the right upper lobe near the level of the minor fissure, laterally, there are persistent and increased peripheral, branching opacities of mucus plugging and/or inflammation of small airways with small tree -in-bud nodules, including a nodular focus measuring approximately 0.3 cm AP ( image 209, series 4). The noncalcified, subcentimeter sized nodules in the right lower lobe remain unchanged compared to 07/08/2014. No pulmonary mass, consolidation or pleural effusion. MEDIASTINUM: The heart size is normal. Atherosclerotic calcifications of coronary arteries. Atherosclerosis of the thoracic aorta without aneurysm. Pulmonary arteries are normal in caliber. No pericardial effusion. Esophagus has normal wall thickness. No mediastinal mass. LYMPHATICS: No pathologic sized axillary, hilar or mediastinal lymph nodes. UPPER ABDOMEN: Atherosclerosis of the visualized abdominal aorta and left renal artery branches. Gallbladder is surgically absent. SKELETAL AND CHEST WALL: Bones appear diffusely osteopenic. No acute findings in the degenerated spine. No aggressive osseous lesion. IMPRESSION: 1. Ltth-bd-dduolclm pulmonary emphysema. 2. Multiple old scattered pulmonary nodules, including nodular foci that represent mucous plugging in peripheral bronchi. There is mild increased tree-in -bud nodularity in the posterior segment of the right upper lobe with increased size of a 0.3 cm nodular focus in this area, likely due to ongoing inflammation or infection of small airways. The nodules within the right lower lobe remain unchanged compared to 07/08/2014. Assessment/Plan Assessment: Ms. Myers is a 77-year-old female with HTN, HLD, asthma, GERD, galucoma, DM, and chronic anemia who presented to the hospital with fatigue, weakness, dizziness, and low blood pressure at home. She has not been feeling well for about a month now. She was recently discharged from [facility] for hyperglycemia and her symptoms have been on going since that time (07/22/2017-). On admission, she was noted to be hypotensive and hyperglycemic. She was noted to have worsening anemia. On admission, her hemoglobin was 9.4 with hematocrit of 27.0%. Her platelet count is normal. Her WBC is trending downward. ESR is elevated. Iron studies demonstrated normal ferritin, normal iron saturation, and normal TIBC. Her serum iron level is low. This is suggestive of anemia of chronic disease/inflammation. There is no obvious etiology with CT of the chest. She does have what seems to be Raynaud symptoms. She has elevated rheumatologic tests. It is unclear the etiology for the testing. She would likely benefit from rheumatology evaluation. She has had GI evaluation. CT chest have not demonstrated any adenopathy. There was no adenopathy on examination. Other work up may be done for hematologic evaluation. SPEP has been sent twice. She has some polyclonal gammopathy and signs of inflammation. IgG is elevated. Her renal function is normal. Calcium is normal. She does have diffuse osteopenia on CT chest. She may be tested for free light chains and evaluated with 24-hour UPEP with immunofixation. TSH has been normal. Vitamin B12 and folate are normal. If no results, she should have bone marrow biopsy. Recommendations: Anemia: -check UPEP (24-hour) -check serum free light chains -check serum immunoglobulin (IgA, IgG, IgM) -bone marrow biopsy if no other obvious etiology -rheumatologic evaluation -follow up as an outpatient Elevated ESR/RF/CCP: -evaluation by rheumatology Problem List: 1. Chronic anemia 2. Elevated erythrocyte sedimentation rate Other Findings/Comments: Please call [phone] Consult Acknowledgment - Thank you for your consult request.
--- NOTE | 2017-08-06 15:28 | PN- Student ---
Subjective Subjective: Patient states that she is feeling a bit better, but about 10 min ago started feeling like "something came down on me". She is eager to know the reason for her presentation. Son and daughter are at bedside and they have lots of questions as well. Objective Objective: Last 24 Hrs of Vital Signs/I&O Vital Signs Date Time Temp Pulse Resp B/P B/P Pulse O2 O2 Flow FiO2 Mean Ox Delivery Rate 08/05 1006 105 110/70 08/05 0653 98.7 97 20 96/52 97 Room Air 08/04 2213 98.8 89 20 120/50 100 Room Air 08/04 1656 80 112/50 08/04 1415 97.1 80 20 112/50 97 Room Air Intake & Output 08/05 1600 08/05 0800 08/05 0000 Intake Total 100 650 Output Total Balance 100 650 Intake, Oral 100 650 Patient 115 lb Weight Weight Bed scale Measurement Method Physical Exam General Appearance: Alert, Oriented X3, Cooperative Skin: No Rashes, No Breakdown Cardiovascular: Regular Rate, Normal S1, Normal S2 Lungs: Clear to Auscultation, Normal Air Movement Abdomen: Normal Bowel Sounds, Soft, No Tenderness Extremities: No Clubbing, No Cyanosis, No Edema Comments: I checked her postural BP today at bedside at 2:40pm and they were 100 /50 regardless of the position. Last 24 Hrs of Lab/Aries Results Last 24 Hrs of Labs/Mics: Laboratory Tests 08/05/17 1055: Anion Gap 13, Estimated GFR 54 L, BUN/Creatinine Ratio 8.0, Phosphorus 3.8, Magnesium 1.7 08/05/17 0623: CBC w Diff NO MAN DIFF REQ, RBC 2.91 L, MCV 84.7, MCH 28.9, MCHC 34.1, RDW 16.2 H, MPV 7.0 L, Gran % 62.7, Lymphocytes % 17.1 L, Monocytes % 10.8 H, Eosinophils % 8.8 H, Basophils % 0.6, Absolute Granulocytes 2.2, Absolute Lymphocytes 0.6 L, Absolute Monocytes 0.4, Absolute Eosinophils 0.3, Absolute Basophils 0 Assessment/Plan Assessment: Mrs. Alarcon is a 77 y/o female with a PMH of DM, HLD, chronic anemia, asthma/ COPD, HTN, hypothyroidism, GERD, closed-angle glaucoma and lung nodules (waxing and waning, followed by Dr. Hawkins) who was admitted on July 22 because of prednisone-induced hyperglycemia. She was complaining of STACK, and PCP prescribed high dose prednisone after suspecting temporal giant cell arteritis. Ophthalmology and Rheumatology agreed that was not the case so prednisone was stopped and no biopsy was taken. This time she presented with diarrhea, weakness and lightheadedness and on admission was found to be hypotensive, hyponatremic and hypokalemic. I called her PCP Dr. Stanley to see if I was able to get a hold of her medical record but it was denied to me. Problem list and plan: * Dehydration: Patient was given IV fluids and now is hemodynamically stable. Diarrhea has resolved. Keep monitoring Na levels. Patient was hyponatremic on presentation (129), then her level normalized on Saturday (137) and today it has come down again (135). Increase salt intake. The reason for her hyponatremia is still unclear although it seems to be a chronic issue. Follow up on endocrinology. * Hypokalemia: Resolved. * HENRY: Resolved. * Chronic anemia: Reason is unclear. Patient has done a lot of workup as an outpatient and the etiology of her anemia is still unknown. Patient followed up with GI in 2013 (when her anemia started), an incomplete colonoscopy was performed and samples were taken for biopsy which didn't show anything. Patient states that her anemia has become refractory to iron. The marked anemia could be the reason for her fatigue, weakness and lightheadedness. Follow up with PCP will be needed and Heme consult should be considered to find the root of her problem. * Asymptomatic bactiuria: Patient's urine was found to be growing Enterobacter. Because of her initial presentation, it was thought that it could explain some of the symptoms she was presenting so Ceftriaxone was administered. She has received the abx for 3 days already. Continue for one more day. * Other chronic conditions: Contine home meds except for Metformin. Her dose was increased after the last admission so it could be the reason for her diarrhea. Insulin was stopped as well per endo's recommendation and pioglitazone was started. Keep monitoring blood glucose levels and follow up endo's recommendations.
--- NOTE | 2017-08-06 15:56 | PN- Student ---
Subjective Subjective: No acute events overnight. Patient states that she feels weak and fatigued and continues to get frontal headaches. Daughter is at bedside and they are both frustrated because they feel like they are not getting any answers. Objective Objective: Vital Signs Date Time Temp Pulse Resp B/P B/P Pulse O2 O2 Flow FiO2 Mean Ox Delivery Rate 08/06 1401 97.5 87 20 120/54 98 Room Air 08/06 0656 98.7 70 18 106/50 98 Room Air 08/06 0000 Room Air 08/05 2119 86 100/44 08/05 2107 98.9 88 20 116/54 95 ED Intake and Output 08/06 0000 08/05 1200 Intake Total 850 100 Output Total Balance 850 100 Intake, Oral 850 100 Number 0 Bowel Movements Patient 111 lb Weight Weight Bed scale Measurement Method Laboratory Tests 08/06 08/06 0625 0600 Chemistry Sodium (137 - 145 mmol/L) 142 Potassium (3.5 - 5.1 mmol/L) 3.9 Chloride (98 - 107 mmol/L) 107 Carbon Dioxide (22 - 30 mmol/L) 23 Anion Gap (5 - 16) 12 BUN (7 - 17 mg/dL) 7 Creatinine (0.5 - 1.0 mg/dL) 0.9 Estimated GFR (>60 ml/min) > 60 BUN/Creatinine Ratio (7 - 25 %) 7.8 Calcium (8.4 - 10.2 mg/dL) 10.1 Lactate Dehydrogenase (313 - 618 U/L) 348 Creatine Kinase (30 - 135 U/L) 62 Prot Electrophoresis Pending Total Protein (PEP) Pending Albumin (3.5 - 5.0 g/dL) 3.0 L Albumin % (PEP) Pending Bvwlg-5-Zcbyqwzoq Pending Shyst-7-Hdivteurw Pending Tgeg-0-Wbmrmwis Pending Ituo-6-Norbzyej Pending Gamma Globulins Pending Abnorm Protein Band 1 Pending Abnorm Protein Band 2 Pending Abnorm Protein Band 3 Pending 25-OH Vitamin D Total (30 - 100 ng/ml) 38.2 PTH Intact (18.4 - 80.1 pg/ML) 15.6 L Hematology CBC w Diff MAN DIFF ORDERED WBC (4.8 - 10.8 /CUMM) 3.5 L RBC (4.20 - 5.40 /CUMM) 2.83 L Hgb (12.0 - 16.0 G/DL) 8.1 L Hct (37 - 47 %) 23.7 L MCV (81.0 - 99.0 FL) 83.9 MCH (27.0 - 31.0 PG) 28.8 MCHC (33.0 - 37.0 G/DL) 34.4 RDW (11.5 - 14.5 %) 16.0 H Plt Count (130 - 400 /CUMM) 347 MPV (7.4 - 10.4 FL) 6.9 L Gran % (42.2 - 75.2 %) 59.9 Lymphocytes % (20.5 - 51.1 %) 17.7 L Monocytes % (1.7 - 9.3 %) 12.8 H Eosinophils % (0 - 5 %) 9.0 H Basophils % (0.0 - 2.0 %) 0.6 Absolute Granulocytes (1.4 - 6.5 /CUMM) 2.1 Segmented Neutrophils (42.2 - 75.2 %) 67 Band Neutrophils (0.0 - 5.0 %) 3 Absolute Lymphocytes (1.2 - 3.4 /CUMM) 0.6 L Lymphocytes (20.5 - 51.1 %) 13 L Monocytes (1.7 - 9.3 %) 8 Absolute Monocytes (0.10 - 0.60 /CUMM) 0.4 Eosinophils (0 - 5.0 %) 9 H Absolute Eosinophils (0.0 - 0.7 /CUMM) 0.3 Absolute Basophils (0.0 - 0.2 /CUMM) 0 Platelet Estimate (ADEQUATE) VERIFIED BY SMEAR Normocytic RBCs VERIFIED Normochromic RBCs VERIFIED Retic Count (0.5 - 2.0 %) 1.26 Haptoglobin Pending Immunology IgA Pending IgM Pending Miscellaneous Ref Lab Test Result Pending Other Body Source Serum IgG Pending Serology HIV 1&2 Ab Western Blot (NONREACTIVE) NONREACTIVE Patient is alert, oriented x3 and cooperative. She does looks very thin to the point of cachexia. Yesterday I took positional blood pressure readings at her right arm, which were 100/50 regardless of position. About 15-20 minutes later, the nurse did the same but on the patient's left arm and reported the values as follow: Lyin/50, Sittin/52 and Standin/50. Then again about 15-20 minutes after that, a tech reported that she took a blood pressure reading from the right arm and it was 102/60, while on the left arm it was: 120/60. At night, the nurse took the readings again and there was no change. There was no change in this morning's readings as well. Normal S1, S2 were heard with no additional murmurs. Vesicular sounds were heard on lung auscultation. Results Results: Laboratory Tests 08/06/17 0625: Anion Gap 12, Estimated GFR > 60, BUN/Creatinine Ratio 7.8, Calcium 10.1, Lactate Dehydrogenase 348, Creatine Kinase 62, Albumin 3.0 L, 25-OH Vitamin D Total 38.2, PTH Intact 15.6 L, CBC w Diff MAN DIFF ORDERED, RBC 2.83 L, MCV 83.9, MCH 28.8, MCHC 34.4, RDW 16.0 H, MPV 6.9 L, Gran % 59.9, Lymphocytes % 17.7 L, Monocytes % 12.8 H, Eosinophils % 9.0 H, Basophils % 0.6, Absolute Granulocytes 2.1, Segmented Neutrophils 67, Band Neutrophils 3, Absolute Lymphocytes 0.6 L, Lymphocytes 13 L, Monocytes 8, Absolute Monocytes 0.4, Eosinophils 9 H, Absolute Eosinophils 0.3, Absolute Basophils 0, Platelet Estimate VERIFIED BY SMEAR, Normocytic RBCs VERIFIED, Normochromic RBCs VERIFIED , Retic Count 1.26, HIV 1&2 Ab Western Blot NONREACTIVE 08/06/17 0600: Prot Electrophoresis Pending, Total Protein (PEP) Pending, Albumin % (PEP) Pending, Jljnw-2-Adgdmqgty Pending, Niooy-6-Ggunvbiby Pending, Laiu-0-Fneeogub Pending, Tswe-6-Kiobymqi Pending, Gamma Globulins Pending, Abnorm Protein Band 1 Pending, Abnorm Protein Band 2 Pending, Abnorm Protein Band 3 Pending, Haptoglobin Pending, IgA Pending, IgM Pending, Ref Lab Test Result Pending, Serum IgG Pending 08/05/17 1413: Folate Cancelled 08/05/17 1055: Anion Gap 13, Estimated GFR 54 L, BUN/Creatinine Ratio 8.0, Phosphorus 3.8, Magnesium 1.7, Vitamin B12 > 1000 H, Folate > 20.0 H 08/05/17 1000: Vitamin B12 Cancelled 08/05/17 0623: CBC w Diff NO MAN DIFF REQ, RBC 2.91 L, MCV 84.7, MCH 28.9, MCHC 34.1, RDW 16.2 H, MPV 7.0 L, Gran % 62.7, Lymphocytes % 17.1 L, Monocytes % 10.8 H, Eosinophils % 8.8 H, Basophils % 0.6, Absolute Granulocytes 2.2, Absolute Lymphocytes 0.6 L, Absolute Monocytes 0.4, Absolute Eosinophils 0.3, Absolute Basophils 0 08/04/17 0607: Thyroglobulin Pending, Thyroglobulin Antibody Pending, 21-Hydroxylase Antibody Pending Assessment/Plan Assessment: Mrs. Alarcon is a 77 y/o female with a PMH of DM, HLD, chronic anemia, asthma/ COPD, HTN, hypothyroidism, GERD, closed-angle glaucoma and lung nodules (waxing and waning, followed by Dr. Hawkins) who was admitted on July 22 because of prednisone-induced hyperglycemia. She was complaining of STACK, and PCP prescribed high dose prednisone after suspecting temporal giant cell arteritis. Ophthalmology and Rheumatology agreed that was not the case so prednisone was stopped and no biopsy was taken. This time she presented with diarrhea, weakness and lightheadedness and on admission was found to be hypotensive, hyponatremic and hypokalemic. I called medical records today and was able to get a hold of some records that the PCP sent on the last admission. It showed a consistently elevated ESR (>100) and the serum protein electrophoresis done by PCP in 2016 and July 2017 showed an inflammatory pattern without a single spike. It also showed an elevated RF and CRP. For this reason, Dr. Davidson feels like this is an autoimmune process. He is recommending 24hr UPEP, serum free light chains, serum IgA, IgG & IgM and if this doesn't show anything, then a bone marrow biopsy should be done. Awaiting Dr. Tucker take on this. Problem list and plan: * Dehydration: Patient was given IV fluids and now is hemodynamically stable. Diarrhea has resolved. Hyponatremia has resolved. Keep monitoring Na levels. * Hypokalemia: Resolved. * HENRY: Resolved. * Chronic anemia: Reason is unclear. Patient has done a lot of workup as an outpatient and the etiology of her anemia is still unknown. Patient followed up with GI in 2013 (when her anemia started), an incomplete colonoscopy was performed and samples were taken for biopsy which didn't show anything. Patient states that her anemia has become refractory to iron. The marked anemia could be the reason for her fatigue, weakness and lightheadedness. Follow up with PCP and Heme. * Asymptomatic bactiuria: Patient's urine was found to be growing Enterobacter. Because of her initial presentation, it was thought that it could explain some of the symptoms she was presenting so Ceftriaxone was administered. She has received the abx for 4 days already, but it doesn't seem like her symptoms were ever related to her bactiuria so Ceftriaxone will be stopped. * Other chronic conditions: Contine home meds except for Metformin. Her dose was increased after the last admission so it could be the reason for her diarrhea. Insulin was stopped as well per endo's recommendation and pioglitazone was started. Today's blood sugar levels (taken at 6:00am) were 119. Keep monitoring blood glucose levels and follow up endo's recommendations.
--- NOTE | 2017-08-06 18:27 | Cons- Rheumatology ---
General Information and HPI Consulting Request Date of Consult: 08/06/17 Requested By: Maci Timmons MD Reason for Consult: Evaluate for a possible autoimmune disease. Source of Information: patient, family, old records Exam Limitations: no limitations History of Present Illness: This is a 77-year-old female with multiple medical problems including COPD chronic anemia diabetes and cachexia. I saw her -2 weeks ago in the hospital for questionable temporal arteritis. At my suggestion steroids were discontinued and she was discharged. She now is back with hypokalemia and dehydration. Her sedimentation rate which was markedly elevated had fallen to 40 while in the hospital but is now over 100. 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 She denies fever chills rashes or swollen joints. She no longer has a headache or scalp tenderness. Outpatient workup done by Dr. Allison reportedly showed a positive rheumatoid factor. This is not in [facility]'s lab so I am unable to see this at this time. Her MANDI was negative in the hospital. Serum protein electrophoresis showed elevated alpha-2 globulins which is nonspecific inflammation. ANCA is negative Allergies/Medications Allergies: Coded Allergies: erythromycin base (Intermediate, PALPITATIONS 08/06/17) Home Med List: Aspirin (Aspirin*) 81 MG TAB.CHEW 1 TAB PO DAILY HEART HEALTH (Reported) Cholecalciferol (Vitamin D3) (Vitamin D3) 1,000 UNIT CAPSULE 1 CAP PO DAILY BONE STRENGTH (Reported) Cyanocobalamin (Vitamin B-12) 1,000 MCG TABLET 500 MG PO DAILY HEART HEALTH ( Reported) Diltiazem HCl (Cardizem Cd) 300 MG CAP.ER.24H 1 CAP PO DAILY VENTRICULAR ECTOPY (Reported) Ezetimibe (Zetia) 10 MG TABLET 1 TAB PO DAILY HLP (Reported) Fluticasone/Vilanterol (Breo Ellipta 100-25 Mcg INH) 100 MCG-25 MCG/DOSE BLST.W.DEV 2 PUFF INH DAILY PRN SOB (Reported) Insulin Detemir (Levemir) 100 UNIT/ML VIAL 10 UNITS SC DAILY DM . Levothyroxine Sodium (Synthroid) 100 MCG TABLET 1 TAB PO DAILY HYPOTHYRODISM (Reported) Metformin HCl (Glucophage) 1,000 MG TABLET 1 TAB PO BID DM (Reported) Metoprolol Succinate 100 MG TAB.ER.24H 0.5 TAB PO DAILY HTN Montelukast Sodium 10 MG TABLET 1 TAB PO DAILY ALLERGIES (Reported) Omeprazole 20 MG CAPSULE.DR 1 CAP PO DAILY ACID REFLUX (Reported) Pen Needle, Diabetic (Pen Needle) 30 GAUGE X 5/16" DIS.NEEDLE 1 UNIT SC ONCE DAILY DM PLEASE USE THE NEEDLES FOR FLEX INSULIN LEVEMIR PEN Pioglitazone HCl (Actos) 30 MG TABLET 1 TAB PO DAILY DIABETES Sodium Bicarbonate 650 MG TABLET 1 TAB PO BID VITAMIN SUPPORT (Reported) Review of Systems Review of Systems: As stated above her weight loss has been modest but she does have chronic anemia which is now profound with a hematocrit of 23.5. Hematology is on the case. Also with electrolyte abnormalities and Endocrine's consult has concluded that this does not seem to be Harney's disease. Past History Travel History Traveled to [place] past 21 day No Medical History Neurological: NONE EENT: glaucoma Cardiovascular: hypertension, HIGH CHOLESTEROL Respiratory: asthma, COPD Gastrointestinal: GERD Hepatic: NONE Renal: NONE Musculoskeletal: NONE Psychiatric: NONE Endocrine: diabetes, HYPOTHYROIDISM Blood Disorders: NONE Cancer(s): NONE MEASURER MACHINE/Reproductive: NONE Surgical History Surgical History: hysterectomy Psychosocial History Where Do You Live? Home Services at Home: None Smoking Status: Former Smoker ETOH Use: denies use Illicit Drug Use: denies illicit drug use Functional Ability Ambulation: independent Exam & Diagnostic Data Vital Signs and I&O Vital Signs Date Time Temp Pulse Resp B/P B/P Pulse O2 O2 Flow FiO2 Mean Ox Delivery Rate 08/06 1401 97.5 87 20 120/54 98 Room Air / 0656 98.7 70 18 106/50 98 Room Air / 0000 Room Air / 2119 86 100/44 06/04 2107 98.9 88 20 116/54 95 Intake & Output / 1600 06/05 0800 06/05 0000 Intake Total 580 220 350 Output Total 1 Balance 579 220 350 Intake, Oral 580 220 350 Number 1 0 Bowel Movements Output, Stool 1 Patient 111 lb Weight Weight Bed scale Measurement Method Physical Exam: On examination she's a thin lady alert and oriented of looking somewhat fragile her conjunctiva are pale and is somewhat dry. 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 There is no synovial hypertrophy of the MCP or wrist joints to suggest RA. A low shoulders knees and ankles also are completely normal. Assessment/Plan Assessment: My assessment is that despite very high sedimentation rate there is no evidence that this represents a autoimmune disease. She has had a CAT scan of the lungs which shows COPD and old nodules however surprisingly she has not had a CAT scan of her abdomen and pelvis which should be done to rule out a malignancy. Another remote possibility is amyloidosis which could cause a high sedimentation rate and weight loss. A rectal biopsy could be done relatively easily to rule out amyloidosis. Recommendations: I recommend a CAT scan of the abdomen and pelvis. This unremarkable a rectal biopsy could be considered. In summary I have no suspicion whatsoever at this time that the patient has a rheumatologic disease to account for her very high sedimentation rate. Recommend a more complete medical workup. Consult Acknowledgment - Thank you for your consult request.
[2017-08-06 19:20] VITALS: BP 126/56
[2017-08-06 22:35] VITALS: BP 122/56
[2017-08-07 06:50] VITALS: BP 110/54
--- NOTE | 2017-08-07 07:17 | PN- Housestaff ---
See Addendum Subjective Follow-up For: Chronic fatigue Tele-Events Since Last Visit: On telemetry Subjective: Patient had chest pain last night. EKG and troponin were negative. Her chest pain has since resolved. However, she says it hurts when she touches her chest wall. She is also complaining of some mild back pain and continues to have fatigue. She has no nausea vomiting or diarrhea. Patient says that Dr. Allison told her she is allergic to contrast but she does not remember having any allergic reaction. Review of Systems Constitutional: Reports: see HPI. EENTM: Reports: no symptoms. Cardiovascular: Reports: see HPI. Respiratory: Reports: no symptoms. Gastrointestinal: Reports: no symptoms. Genitourinary: Reports: no symptoms. Musculoskeletal: Reports: no symptoms. Skin: Reports: no symptoms. Neurological/Psychological: Reports: no symptoms. Hematologic/Endocrine: Reports: no symptoms. Immunologic/Allergic: Reports: no symptoms. Objective Last 24 Hrs of Vital Signs/I&O Vital Signs Date Time Temp Pulse Resp B/P B/P Pulse O2 O2 Flow FiO2 Mean Ox Delivery Rate 08/07 0650 97.8 81 20 110/54 95 Room Air / 2235 98.5 89 20 122/56 98 Room Air 06/05 1920 98.8 91 20 126/56 100 Room Air 06/05 1401 97.5 87 20 120/54 98 Room Air Intake & Output 08/07 0800 06/06 0000 0605 1600 Intake Total 280 120 840 Output Total 550 1 Balance -270 120 839 Intake, Oral 280 120 840 Number 1 Bowel Movements Output, Stool 1 Output, Urine 550 Patient 51.256 kg Weight Weight Bed scale Measurement Method Physical Exam General Appearance: Alert, Oriented X3, Cooperative, No Acute Distress Cardiovascular: Regular Rate, Normal S1, Normal S2, tenderness to chest wall Lungs: Clear to Auscultation Abdomen: Normal Bowel Sounds, Soft, No Tenderness Extremities: No Edema, Normal Pulses, No Tenderness/Swelling Current Medications: Current Medications Sig/Liliana Start time Last Medication Dose Route Stop Time Status Admin Acetaminophen 500 MG .STK-MED ONE 08/06 2009 DC PO 08/06 2010 Acetaminophen 500 MG Q6P PRN 08/03 1215 AC 08/06 PO 2011 Aspirin 81 MG DAILY 08/03 0900 AC 08/06 PO 0832 Budesonide/ 2 PUF BID 08/02 2140 AC 08/06 Formoterol Fumarate INH 2146 Ceftriaxone Sodium 1,000 MG DAILY@1300 08/03 1300 DC 08/05 IV 08/09 1700 1322 Diltiazem HCl 300 MG DAILY 08/03 0900 AC 08/06 PO 0832 Enoxaparin Sodium 40 MG DAILY 08/06 0930 DC SC Ezetimibe 10 MG DAILY 08/03 0900 AC 08/06 PO 0831 Ferrous Sulfate 325 MG DAILY 08/06 09 CAN PO Glycerin 2 SPRAY Q2P PRN 08/05 0900 AC 08/05 PO 1007 Levothyroxine Sodium 0.1 MG DAILY AC 08/03 0700 AC 08/07 PO 0608 Magnesium Oxide 400 MG BID 08/05 1415 AC 08/06 PO 2012 Melatonin 5 MG AT BEDTIME 08/03 2100 AC 08/06 PO 2013 Metoprolol Succinate 50 MG DAILY 08/04 0900 AC 08/06 PO 0831 Montelukast Sodium 10 MG QPM 08/02 2145 AC 08/06 PO 2013 Omeprazole 20 MG DAILY AC 08/03 0700 AC 08/07 PO 0608 Pioglitazone HCl 30 MG DAILY 08/04 1215 AC 08/06 PO 0832 Sodium Bicarbonate 650 MG BID 08/02 2100 AC 08/06 PO 2013 Last 24 Hrs of Lab/Aries Results Last 24 Hrs of Labs/Mics: Laboratory Tests 08/07/17 0630: Sodium Pending, Potassium Pending, Chloride Pending, Carbon Dioxide Pending, Anion Gap Pending, BUN Pending, Creatinine Pending, BUN/Creatinine Ratio Pending , CBC w Diff Pending, WBC Pending, RBC Pending, Hgb Pending, Hct Pending, MCV Pending, MCH Pending, MCHC Pending, RDW Pending, Plt Count Pending, MPV Pending, ESR Westergren Pending Assessment/Plan Assessment: Ms. Myers is a 77 y F with PMH of HTN, HLP, asthma, GERD, closed-angle glaucoma, DM, ??Temporal arteritis and hypothyroidism, recently discharged from [facility] after being treated for prednisone-induced hyperglycemia presented to the ED with chief complaint of lightheadedness and some dizziness which has been going on since her discharge from the hospital on July 24. Problem List: 1. Fatigue 2. Acute gastroenteritis, resolved 3. Acute kidney injury, resolved 4. Chronic hyponatremia 5. Anemia of chronic disease 6. Asymptomatic bactiuria #Fatigue: The patient's main complaint at this point is fatigue. She has an elevated ESR with labs consistent with anemia of chronic disease. She previously saw Dr. Tucker on her recent admission for concern for temporal arteritis. However her ESR subsequently normalized before coming back up to 113. I have a low suspicion for GCA at this point. Etiology of her fatigue is unclear at this time. I did look at her previous notes from Dr. Allison. It seems like she had high gammaglobulins. Differential diagnosis includes malignancy and amyloidosis. Hematology and rheumatology have consulted and recommended labwork to look for myeloma, scanning for malignancy, and possibly rectal biopsy for amyloidosis. -Appreciate hematology recognitions -Appreciate rheumatology recommendations -Appreciate endocrinology recommendations -Guiaic all stools -follow-up labs -CT scan abdomen/pelvis Dr. Allison called yesterday and said the patient has allergy to contrast. However the patient does not recall any allergic reactions. We can consider giving the contrast and monitoring her closely. #Asymptomatic bactiuria: On presentation, patient had positive urinalysis and now has intact Enterobacter growing in her urine. However she has not had any symptoms and no fever or leukocytosis. She has received 4 days of antibiotics. -Continue to monitor #Chronic hyponatremia: Sodium is actually normal today. -Continue to monitor #Chronic medical problems: -Continue other home medications -Continue pioglitazone DVT prophylaxis with Alps, patient is active Consistent carbohydrate two diet Full code Problem List: 1. Fatigue associated with anemia Pain Ratin Pain Location: no Pain Goal: Remain pain free Pain Plan: see a/p Tomorrow's Labs & Rationales: cbc, bep
--- NOTE | 2017-08-07 07:39 | PN- Diabetes ---
Assessment/Plan Diabetes Assessment: The patient feels about the same. Her blood sugars got high somewhat late in the day yesterday but came back down by this morning. Of note the patient's corrected calcium is elevated. The serum calcium is 10.1 with an albumin of 3.0. Corrected calcium is 10.9. The patient's parathyroid hormone level is low. Therefore the hypercalcemia does seem to be non-PTH mediated. The patient's 25 hydroxy vitamin D is normal. Patient does have elevated gamma globulins. Plan: Suggest leave on pioglitazone for treatment of her diabetes. Since the patient's parathyroid hormone is low in the face of hypercalcemia this would suggest a non-PTH mediated cause of hypercalcemia. Once again occult malignancy such as renal cell cancer, breast cancer, myeloma need to be ruled out. In addition we need to measure 125 dihydroxy vitamin D with regard to granulomatous disease or sarcoidosis as a cause of hypercalcemia. Subjective Subjective: Feels about the same Review of Systems Constitutional: Denies: chills, fever. Cardiovascular: Denies: chest pain. Respiratory: Denies: cough, short of breath. Gastrointestinal: Denies: abdominal pain, nausea. Skin: Reports: no symptoms. Objective Last 24 Hrs of Vital Signs/I&O Vital Signs Date Time Temp Pulse Resp B/P B/P Pulse O2 O2 Flow FiO2 Mean Ox Delivery Rate 08/07 0550 97.8 81 20 110/54 95 Room Air 08/065 98.5 89 20 122/56 98 Room Air / 1920 98.8 91 20 126/56 100 Room Air 08/06 1401 97.5 87 20 120/54 98 Room Air Intake & Output 08/07 0800 08/07 0000 06/05 1600 Intake Total 280 120 840 Output Total 550 1 Balance -270 120 839 Intake, Oral 280 120 840 Number 1 Bowel Movements Output, Stool 1 Output, Urine 550 Patient 113 lb Weight Weight Bed scale Measurement Method Vital Signs Date Time Temp Pulse Resp B/P B/P Pulse O2 O2 Flow FiO2 Mean Ox Delivery Rate 08/07 0550 97.8 81 20 110/54 95 Room Air /5 98.5 89 20 122/56 98 Room Air 06/ 1920 98.8 91 20 126/56 100 Room Air 08/06 1401 97.5 87 20 120/54 98 Room Air Intake & Output 08/07 0800 08/07 0000 08/06 1600 Intake Total 280 120 840 Output Total 550 1 Balance -270 120 839 Intake, Oral 280 120 840 Number 1 Bowel Movements Output, Stool 1 Output, Urine 550 Patient 113 lb Weight Weight Bed scale Measurement Method Physical Exam General Appearance: alert, awake, comfortable Head: normal appearance Respiratory: normal breath sounds Cardiovascular: regular rate/rhythm Abdomen: normal bowel sounds, soft Current Medications: Current Medications Sig/Liliana Start time Last Medication Dose Route Stop Time Status Admin Acetaminophen 500 MG .STK-MED ONE 08/06 2009 DC PO 08/06 2010 Acetaminophen 500 MG Q6P PRN 08/03 1215 AC 08/06 PO 2011 Aspirin 81 MG DAILY 08/03 899 AC 08/06 PO 0832 Budesonide/ 2 PUF BID 08/03 2139 08/06 Formoterol Fumarate INH 2146 Ceftriaxone Sodium 1,000 MG DAILY@1300 08/03 1300 DC 08/05 IV 08/09 1700 1322 Diltiazem HCl 300 MG DAILY 08/03 09 08/06 PO 0832 Enoxaparin Sodium 40 MG DAILY 08/06 0930 DC CA Ezetimibe 10 MG DAILY 08/03 0900 AC 08/06 PO 0831 Glycerin 2 SPRAY Q2P PRN 08/05 0900 AC 08/05 PO 1007 Levothyroxine Sodium 0.1 MG DAILY AC 08/03 07 AC 08/07 PO 0608 Magnesium Oxide 400 MG BID 08/05 1415 AC 08/06 PO 2011 Melatonin 5 MG AT BEDTIME 08/03 2100 AC 08/06 PO 2012 Metoprolol Succinate 50 MG DAILY 08/04 09 AC 08/06 PO 0831 Montelukast Sodium 10 MG QPM 08/02 2145 AC 08/06 PO 2012 Omeprazole 20 MG DAILY AC 08/03 07 AC 08/07 PO 0608 Pioglitazone HCl 30 MG DAILY 08/04 1215 AC 08/06 PO 0832 Sodium Bicarbonate 650 MG BID 08/02 2100 AC 08/06 PO 2012 Findings Pertinent Lab/Aries Results: Laboratory Tests 08/07 08/06 08/06 0630 0625 0600 Chemistry Sodium (137 - 145 mmol/L) Pending 142 Potassium (3.5 - 5.1 mmol/L) Pending 3.9 Chloride (98 - 107 mmol/L) Pending 107 Carbon Dioxide (22 - 30 mmol/L) Pending 23 Anion Gap (5 - 16) Pending 12 BUN (7 - 17 mg/dL) Pending 7 Creatinine (0.5 - 1.0 mg/dL) Pending 0.9 Estimated GFR (>60 ml/min) > 60 BUN/Creatinine Ratio (7 - 25 %) Pending 7.8 Calcium (8.4 - 10.2 mg/dL) 10.1 Lactate Dehydrogenase (313 - 618 U/L) 348 Creatine Kinase (30 - 135 U/L) 62 Prot Electrophoresis Pending Total Protein (PEP) Pending Albumin (3.5 - 5.0 g/dL) 3.0 L Albumin % (PEP) Pending Awdvi-0-Uxvgihvib Pending Kirwn-3-Bcmsnafmg Pending Ksjq-3-Ugvvsipi Pending Teka-5-Ehiskbas Pending Gamma Globulins Pending Abnorm Protein Band 1 Pending Abnorm Protein Band 2 Pending Abnorm Protein Band 3 Pending 25-OH Vitamin D Total (30 - 100 ng/ml) 38.2 PTH Intact (18.4 - 80.1 pg/ML) 15.6 L Hematology CBC w Diff Pending MAN DIFF ORDERED WBC (4.8 - 10.8 /CUMM) Pending 3.5 L RBC (4.20 - 5.40 /CUMM) Pending 2.83 L Hgb (12.0 - 16.0 G/DL) Pending 8.1 L Hct (37 - 47 %) Pending 23.7 L MCV (81.0 - 99.0 FL) Pending 83.9 MCH (27.0 - 31.0 PG) Pending 28.8 MCHC (33.0 - 37.0 G/DL) Pending 34.4 RDW (11.5 - 14.5 %) Pending 16.0 H Plt Count (130 - 400 /CUMM) Pending 347 MPV (7.4 - 10.4 FL) Pending 6.9 L Gran % (42.2 - 75.2 %) 59.9 Lymphocytes % (20.5 - 51.1 %) 17.7 L Monocytes % (1.7 - 9.3 %) 12.8 H Eosinophils % (0 - 5 %) 9.0 H Basophils % (0.0 - 2.0 %) 0.6 Absolute Granulocytes (1.4 - 6.5 /CUMM) 2.1 Segmented Neutrophils (42.2 - 75.2 %) 67 Band Neutrophils (0.0 - 5.0 %) 3 Absolute Lymphocytes (1.2 - 3.4 /CUMM) 0.6 L Lymphocytes (20.5 - 51.1 %) 13 L Monocytes (1.7 - 9.3 %) 8 Absolute Monocytes (0.10 - 0.60 /CUMM) 0.4 Eosinophils (0 - 5.0 %) 9 H Absolute Eosinophils (0.0 - 0.7 /CUMM) 0.3 Absolute Basophils (0.0 - 0.2 /CUMM) 0 Platelet Estimate (ADEQUATE) VERIFIED BY SMEAR Normocytic RBCs VERIFIED Normochromic RBCs VERIFIED ESR Westergren Pending Retic Count (0.5 - 2.0 %) 1.26 Haptoglobin Pending Immunology IgA Pending IgM Pending Miscellaneous Ref Lab Test Result Pending Other Body Source Serum IgG Pending Serology HIV 1&2 Ab Western Blot (NONREACTIVE) NONREACTIVE 08/05 08/05 08/05 1413 1055 UNK Chemistry Sodium (137 - 145 mmol/L) 135 L Potassium (3.5 - 5.1 mmol/L) 3.7 Chloride (98 - 107 mmol/L) 102 Carbon Dioxide (22 - 30 mmol/L) 19 L Anion Gap (5 - 16) 13 BUN (7 - 17 mg/dL) 8 Creatinine (0.5 - 1.0 mg/dL) 1.0 Estimated GFR (>60 ml/min) 54 L BUN/Creatinine Ratio (7 - 25 %) 8.0 Phosphorus (2.5 - 4.5 mg/dL) 3.8 Magnesium (1.6 - 2.3 mg/dL) 1.7 Vitamin B12 (239 - 931 pg/mL) > 1000 H Cancelled Folate (2.76 - 20.0 ng/mL) Cancelled > 20.0 H
--- NOTE | 2017-08-07 07:47 | PN- Student ---
Subjective Subjective: Patient says she is feeling "odd." She reports an episode of chest pain yesterday night, for which troponins and EKG came back negative. She denies any STACK, palpitations, sweating, or radiation of pain. The pain is in the left sternal border -2nd to 4th intercostal spaces- and is reproducible. She also reports 2-3 bowel movements during a day (before admission they were back to back), but these are formed. They don't have any blood, mucus nor are accompanied by pain. Objective Objective: Vital Signs Date Time Temp Pulse Resp B/P B/P Pulse O2 O2 Flow FiO2 Mean Ox Delivery Rate 08/07 0650 97.8 81 20 110/54 95 Room Air 06/ 2235 98.5 89 20 122/56 98 Room Air 06/05 1920 98.8 91 20 126/56 100 Room Air 06/05 1401 97.5 87 20 120/54 98 Room Air ED Intake and Output 08/07 0000 06/05 1200 Intake Total 960 220 Output Total 1 Balance 959 220 Intake, Oral 960 220 Number 1 Bowel Movements Output, Stool 1 Patient 113 lb Weight Weight Bed scale Measurement Method Laboratory Tests 08/07 08/07 06 0630 0600 0600 Chemistry Sodium (137 - 145 mmol/L) 142 Potassium (3.5 - 5.1 mmol/L) 3.5 Chloride (98 - 107 mmol/L) 107 Carbon Dioxide (22 - 30 mmol/L) 24 Anion Gap (5 - 16) 11 BUN (7 - 17 mg/dL) 8 Creatinine (0.5 - 1.0 mg/dL) 1.0 Estimated GFR (>60 ml/min) 54 L BUN/Creatinine Ratio (7 - 25 %) 8.0 Magnesium (1.6 - 2.3 mg/dL) 2.1 Cancelled Vit D 1,25-Dihyd Total Pending 1,25 Dihydroxy Vit D2 Pending 1,25 Dihydroxy Vit D3 Pending Hematology CBC w Diff NO MAN DIFF REQ WBC (4.8 - 10.8 /CUMM) 3.2 L RBC (4.20 - 5.40 /CUMM) 2.92 L Hgb (12.0 - 16.0 G/DL) 8.4 L Hct (37 - 47 %) 24.4 L MCV (81.0 - 99.0 FL) 83.5 MCH (27.0 - 31.0 PG) 28.6 MCHC (33.0 - 37.0 G/DL) 34.3 RDW (11.5 - 14.5 %) 16.2 H Plt Count (130 - 400 /CUMM) 402 H MPV (7.4 - 10.4 FL) 6.9 L Gran % (42.2 - 75.2 %) 52.8 Lymphocytes % (20.5 - 51.1 %) 22.1 Monocytes % (1.7 - 9.3 %) 14.8 H Eosinophils % (0 - 5 %) 9.4 H Basophils % (0.0 - 2.0 %) 0.9 Absolute Granulocytes (1.4 - 6.5 /CUMM) 1.7 Absolute Lymphocytes (1.2 - 3.4 /CUMM) 0.7 L Absolute Monocytes (0.10 - 0.60 /CUMM) 0.5 Absolute Eosinophils (0.0 - 0.7 /CUMM) 0.3 Absolute Basophils (0.0 - 0.2 /CUMM) 0 ESR Westergren (0 - 20 MM) Pending Patient is alert, oriented x3 and cooperative. She does looks very thin to the point of cachexia. Orthostatic blood pressures readings have consistently shown no changes regardless of the position. Left sternal border -2nd to 4th intercostal spaces- is tender to palpation. Normal S1, S2 were heard with no additional murmurs. Vesicular sounds were heard on lung auscultation. Results Results: Laboratory Tests 08/07/17 0630: Anion Gap 11, Estimated GFR 54 L, BUN/Creatinine Ratio 8.0, Magnesium 2.1, CBC w Diff NO MAN DIFF REQ, RBC 2.92 L, MCV 83.5, MCH 28.6, MCHC 34.3, RDW 16.2 H, MPV 6.9 L, Gran % 52.8, Lymphocytes % 22.1, Monocytes % 14.8 H, Eosinophils % 9.4 H, Basophils % 0.9, Absolute Granulocytes 1.7, Absolute Lymphocytes 0.7 L, Absolute Monocytes 0.5, Absolute Eosinophils 0.3, Absolute Basophils 0, ESR Westergren Pending 08/07/17 0600: Magnesium Cancelled 08/07/17 0600: Vit D 1,25-Dihyd Total Pending, 1,25 Dihydroxy Vit D2 Pending, 1,25 Dihydroxy Vit D3 Pending 08/06/17 0625: Anion Gap 12, Estimated GFR > 60, BUN/Creatinine Ratio 7.8, Calcium 10.1, Lactate Dehydrogenase 348, Creatine Kinase 62, Albumin 3.0 L, 25-OH Vitamin D Total 38.2, PTH Intact 15.6 L, CBC w Diff MAN DIFF ORDERED, RBC 2.83 L, MCV 83.9, MCH 28.8, MCHC 34.4, RDW 16.0 H, MPV 6.9 L, Gran % 59.9, Lymphocytes % 17.7 L, Monocytes % 12.8 H, Eosinophils % 9.0 H, Basophils % 0.6, Absolute Granulocytes 2.1, Segmented Neutrophils 67, Band Neutrophils 3, Absolute Lymphocytes 0.6 L, Lymphocytes 13 L, Monocytes 8, Absolute Monocytes 0.4, Eosinophils 9 H, Absolute Eosinophils 0.3, Absolute Basophils 0, Platelet Estimate VERIFIED BY SMEAR, Normocytic RBCs VERIFIED, Normochromic RBCs VERIFIED , Retic Count 1.26, HIV 1&2 Ab Western Blot NONREACTIVE 08/06/17 0600: Prot Electrophoresis Pending, Total Protein (PEP) Pending, Albumin % (PEP) Pending, Mwwbq-5-Mvhdlhhyu Pending, Rolfp-7-Tmvclsqpq Pending, Flnm-9-Ooeqxpfy Pending, Bogi-0-Amijqvla Pending, Gamma Globulins Pending, Abnorm Protein Band 1 Pending, Abnorm Protein Band 2 Pending, Abnorm Protein Band 3 Pending, Haptoglobin Pending, IgA Pending, IgM Pending, Ref Lab Test Result Pending, Serum IgG Pending 08/05/17 1413: Folate Cancelled 08/05/17 1055: Anion Gap 13, Estimated GFR 54 L, BUN/Creatinine Ratio 8.0, Phosphorus 3.8, Magnesium 1.7, Vitamin B12 > 1000 H, Folate > 20.0 H 08/05/17 1000: Vitamin B12 Cancelled 08/05/17 0623: CBC w Diff NO MAN DIFF REQ, RBC 2.91 L, MCV 84.7, MCH 28.9, MCHC 34.1, RDW 16.2 H, MPV 7.0 L, Gran % 62.7, Lymphocytes % 17.1 L, Monocytes % 10.8 H, Eosinophils % 8.8 H, Basophils % 0.6, Absolute Granulocytes 2.2, Absolute Lymphocytes 0.6 L, Absolute Monocytes 0.4, Absolute Eosinophils 0.3, Absolute Basophils 0 Assessment/Plan Assessment: Mrs. Alarcon is a 77 y/o female with a PMH of DM, HLD, chronic anemia, asthma/ COPD, HTN, hypothyroidism, GERD, closed-angle glaucoma and lung nodules (waxing and waning, followed by Dr. Hawkins) who was admitted on July 22 because of prednisone-induced hyperglycemia. She was complaining of STACK, and PCP prescribed high dose prednisone after suspecting temporal giant cell arteritis. Ophthalmology and Rheumatology agreed that was not the case so prednisone was stopped and no biopsy was taken. This time she presented with diarrhea, weakness and lightheadedness and on admission was found to be hypotensive, hyponatremic and hypokalemic. Yesterday, Dr. Tucker saw the patient and after a throughout physical exam, didn't see anything suggestive of an autoimmune disorder. He states that the protein electrophoresis showed nonspecific markers of inflammation, besides from the fact that her MANDI and ANCA were negative. He thinks this is an occult malignancy so he is recommending a CAT scan of her abdomen and pelvis to be performed and if unremarkable, a rectal biopsy should be considered to rule out amyloidosis. Dr. Osuna saw her this morning and also thinks that the etiology could be an occult malignancy as well. He feels the need to rule out RCC, breast cancer and myeloma. He is recommending 1-25 dihydroxy vit D to rule out granulomatous disease or sarcoidosis because her corrected Ca is elevated (10.9) in the setting of low PTH. Problem list and plan: * Dehydration: Resolved. * Hypokalemia: Resolved. * HENRY: Resolved. * Hypercalcemia in the setting of low PTH: Awaiting results of 1-25 dihydroxy vit D. CAT scan with contrast will be performed today to see if we can find anything that could help us assess the root of her condition and a surgery consult was requested for an abdominal fat pad biopsy to rule out amyloidosis. * Chronic anemia: Reason is unclear. Patient has done a lot of workup as an outpatient and the etiology of her anemia is still unknown. Patient followed up with GI in 2013 (when her anemia started), an incomplete colonoscopy was performed and samples were taken for biopsy which didn't show anything. Patient states that her anemia has become refractory to iron. The marked anemia could be the reason for her fatigue, weakness and lightheadedness. Follow up with PCP and Heme. * Asymptomatic bactiuria: Patient's urine was found to be growing Enterobacter. Because of her initial presentation, it was thought that it could explain some of the symptoms she was presenting so Ceftriaxone was administered. She has received the abx for 4 days already, but it doesn't seem like her symptoms were ever related to her bactiuria so Ceftriaxone was stopped. * Other chronic conditions: Contine home meds except for Metformin. Her dose was increased after the last admission so it could be the reason for her diarrhea. Insulin was stopped as well per endo's recommendation and pioglitazone was started. Today's blood sugar levels (taken at 6:49am) were 159. Keep monitoring blood glucose levels and follow up endo's recommendations. * Other chronic conditions: Contine home meds except for Metformin. Her dose was increased after the last admission so it could be the reason for her diarrhea. Insulin was stopped as well per endo's recommendation and pioglitazone was started. Today's blood sugar levels (taken at 6:49am) were 159. Keep monitoring blood glucose levels and follow up endo's recommendations.
[2017-08-07 07:59] LABS: ABSOLUTE BASOPHIL COUNT 0 /CUMM (0.0-0.2); ABSOLUTE EOSINOPHIL COUNT 0.3 /CUMM (0.0-0.7); ABSOLUTE GRANULOCYTE CT 1.7 /CUMM (1.4-6.5); ABSOLUTE LYMPH COUNT 0.7 /CUMM (1.2-3.4); ABSOLUTE MONOCYTE COUNT 0.5 /CUMM (0.10-0.60); BASOPHIL % 0.9 % (0.0-2.0); EOSINOPHIL % 9.4 % (0-5); GRANULOCYTE % 52.8 % (42.2-75.2); HEMATOCRIT 24.4 % (37-47); MEAN CORPUSCULAR HGB 28.6 PG (27.0-31.0); MEAN CORPUSCULAR HGB CONC 34.3 G/DL (33.0-37.0); MEAN CORPUSCULAR VOLUME 83.5 FL (81.0-99.0); MEAN PLATELET VOLUME 6.9 FL (7.4-10.4); PLATELET COUNT 402 /CUMM (130-400); RBC DISTRIBUTION WIDTH 16.2 % (11.5-14.5); RED BLOOD CELL CT 2.92 /CUMM (4.20-5.40); WHITE BLOOD CELL COUNT 3.2 /CUMM (4.8-10.8)
--- NOTE | 2017-08-07 10:52 | CT SCAN REPORT ---
EXAMINATION: CT ABDOMEN AND PELVIS WITH CONTRAST CLINICAL INFORMATION: Fatigue and hypercalcemia. COMPARISON: 07/24/2017. TECHNIQUE: Contiguous axial thin section helical images of the abdomen and pelvis were performed following the administration of 95 mL of intravenous Optiray 320. The data set was reformatted in the coronal and sagittal planes and reviewed on an independent workstation. DLP: 256 mGy-cm. FINDINGS: There is a stable 8 mm nodule within the right lower lobe on image 6/704. There is also a stable nodule within the posterior basal segment of the right lower lobe on image 120 measuring 5 mm. The visualized lung bases are otherwise clear. The visualized portions of the heart are unremarkable. There is a small hiatal hernia. The liver is of normal size and attenuation without focal lesions nor intrahepatic biliary ductal dilation. The patient is status post cholecystectomy. Surgical clips are identified. The spleen, pancreas, adrenal glands are unremarkable. Both kidneys are of normal size and attenuation without hydronephrosis or nephrolithiasis. Following the administration of IV contrast, prompt symmetric nephrograms are displayed. There is no abdominal free fluid. There is neither mesenteric nor retroperitoneal lymphadenopathy. There are scattered sigmoid diverticula without evidence of diverticulitis; otherwise, unremarkable unopacified loops of small and large bowel are identified. A normal appendix is identified. There is no pelvic free fluid. The urinary bladder is unremarkable. There is neither pelvic nor inguinal lymphadenopathy. Bone windows: Neither sclerotic nor lytic bone lesions are identified. IMPRESSION: No evidence for acute abdominal or pelvic inflammatory or infectious processes. Sigmoid diverticulosis without evidence of diverticulitis. Stable right lower lobe pulmonary nodules. Small hiatal hernia. Status post cholecystectomy.
[2017-08-07 14:00] VITALS: BP 110/70
--- NOTE | 2017-08-07 14:44 | Discharge Summary ---
See Addendum Visit Information Visit Dates Admission Date: 08/02/17 Discharge Date: 08/08/17 Hospital Course Course Attending Physician: Maci Timmons MD Primary Care Physician: Dre Miramontes MD Hospital Course: Ms. Myers is a 77 y F with PMH of HTN, HLP, asthma, GERD, closed-angle glaucoma, DM, hypothyroidism, recently discharged from [facility] after being treated for prednisone-induced hyperglycemia presented to the ED with chief complaint of lightheadedness and some dizziness which has been going on since her discharge from the hospital on July 24. She was admitted to telemetry and treated for the following problems: 1. Fatigue 2. Acute gastroenteritis 3. Acute kidney injury 4. Chronic hyponatremia 5. Anemia of chronic disease 6. Asymptomatic bactiuria #Fatigue: The patient's main complaint was fatigue. She has an elevated ESR with labs consistent with anemia of chronic disease. She previously saw Dr. Tucker on her recent admission for concern for temporal arteritis. However her ESR subsequently normalized before coming back up to 113. I have a low suspicion for GCA at this point. Etiology of her fatigue is unclear at this time. 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 Differential diagnosis includes malignancy and amyloidosis. Hematology and rheumatology have consulted and recommended labwork to look for myeloma, scanning for malignancy, and biopsy for amyloidosis. CT imaging of chest, abdomen, and pelvis did not reveal any occult malignancies. Biopsy of the abdominal fat pad was performed and is pending. She will follow-up with her primary care doctor for results and further care. She should also follow-up with hematology and rheumatology. #Acute gastroenteritis: Patient presented with diarrhea. Subsequently resolved and was likely viral in nature. #Acute kidney injury: Patient had an acute kidney injury that subsequently resolved with hydration. Likely prerenal azotemia in the setting of hypotension. #Asymptomatic bactiuria: On presentation, patient had positive urinalysis and now has Enterobacter growing in her urine. However she has not had any symptoms and no fever or leukocytosis. She received 4 days of antibiotics. #Chronic hyponatremia: Sodium was monitored and return to normal over the course of her hospitalization with supportive care. #Chronic medical problems: Patient's diabetes medications were adjusted after consult endocrinology. She will now be maintained on pioglitazone. Allergies: Coded Allergies: erythromycin base (Intermediate, PALPITATIONS 06/05/18) Disposition Summary Disposition Principal Diagnosis: 1. Fatigue Additional Diagnosis: 2. Acute gastroenteritis 3. Acute kidney injury 4. Chronic hyponatremia 5. Anemia of chronic disease 6. Asymptomatic bactiuria Discharge Disposition: home health services Discharge Instructions General Discharge Information Code Status: Full Code Patient's Diet: Diabetic diet Patient's Activity: As tolerated Follow-Up Instructions/Appts: Please take all medications as directed. Please follow-up with rheumatology, hematology, and primary care. Medications at Discharge Discharge Medications: Stop taking the following medications: Metformin HCl (Glucophage) 1,000 MG TABLET ORAL TWICE DAILY Insulin Detemir (Levemir) 100 UNIT/ML VIAL Inject into fatty tissue DAILY Qty = 1 Pen Needle, Diabetic (Pen Needle) 30 GAUGE X 5/16" DIS.NEEDLE Inject into fatty tissue ONCE DAILY Qty = 30 Continue taking these medications: Levothyroxine Sodium (Synthroid) 100 MCG TABLET 1 Tablet ORAL DAILY Comments: Last Taken: 07/24/17 Time: 0600 AM Diltiazem HCl (Cardizem Cd) 300 MG CAP.ER.24H 1 Capsule ORAL DAILY Comments: Last Taken: 07/24/17 Time: 0830 AM Ezetimibe (Zetia) 10 MG TABLET 1 Tablet ORAL DAILY Comments: Last Taken: 07/24/17 Time: 0830 AM Aspirin (Aspirin*) 81 MG TAB.CHEW 1 Tablet ORAL DAILY Comments: Last Taken: 07/24/17 Time: 0830 AM Montelukast Sodium (Montelukast Sodium) 10 MG TABLET 1 Tablet ORAL DAILY Comments: NOT GIVEN IN HOSPITAL Cyanocobalamin (Vitamin B-12) 1,000 MCG TABLET 500 Milligram ORAL DAILY Comments: NOT GIVEN IN HOSPITAL Cholecalciferol (Vitamin D3) (Vitamin D3) 1,000 UNIT CAPSULE 1 Capsule ORAL DAILY Comments: NOT GIVEN IN HOSPITAL Omeprazole (Omeprazole) 20 MG CAPSULE.DR 1 Capsule ORAL DAILY Comments: Last Taken: 07/24/17 Time: 0600 AM Sodium Bicarbonate (Sodium Bicarbonate) 650 MG TABLET 1 Tablet ORAL TWICE DAILY Comments: NOT GIVEN IN HOSPITAL Fluticasone/Vilanterol (Breo Ellipta 100-25 Mcg INH) 100 MCG-25 MCG/DOSE BLST.W.DEV 2 PUFF Inhale through mouth DAILY as needed for SOB Qty = 180 Comments: NOT GIVEN IN HOSPITAL Start taking the following new medications: Pioglitazone HCl (Actos) 30 MG TABLET 1 Tablet ORAL DAILY Qty = 30 No Refills Instructions: . Saliva Substitute Combo No.9 (Biotene) 473 ML MOUTHWASH 2 [place] ORAL EVERY 2 HOURS NEEDED as needed for dry mouth Qty = 1 No Refills Instructions: . The following medications have been changed: Old: Metoprolol Succinate (Metoprolol Succinate) 100 MG TAB.ER.24H 0.5 Tablet ORAL DAILY Qty = 30 New: Metoprolol Succinate (Metoprolol Succinate) 100 MG TAB.ER.24H 0.5 Tablet ORAL DAILY Qty = 30 Instructions: . Comments: Last Taken: 07/24/17 Time: 0830 AM Copies To: Thao DEL VALLE,Manuel Lozano; Garrett DEL VALLE,Tim Rhodes; Lety DEL VALLE,[facility]; Fe DEL VALLE,Dre Conde
--- NOTE | 2017-08-07 18:19 | PN- General Surgery ---
Surgical Brief Attending Note Brief Attending Note: patient will be seen tomorrow regarding fat biopsy.
[2017-08-07 21:36] VITALS: BP 116/60
[2017-08-08 06:44] VITALS: BP 114/58
--- NOTE | 2017-08-08 06:55 | PN- Housestaff ---
See Addendum Subjective Follow-up For: Chronic fatigue Tele-Events Since Last Visit: No telemetry Subjective: No overnight events. Patient says she feels better than yesterday but still has some fatigue. Otherwise, she feels well. She agrees with going home today after the fat biopsy. Review of Systems Constitutional: Reports: see HPI. EENTM: Reports: no symptoms. Cardiovascular: Reports: no symptoms. Respiratory: Reports: no symptoms. Gastrointestinal: Reports: no symptoms. Genitourinary: Reports: no symptoms. Musculoskeletal: Reports: no symptoms. Skin: Reports: no symptoms. Neurological/Psychological: Reports: no symptoms. Hematologic/Endocrine: Reports: no symptoms. Immunologic/Allergic: Reports: no symptoms. Objective Last 24 Hrs of Vital Signs/I&O Vital Signs Date Time Temp Pulse Resp B/P B/P Pulse O2 O2 Flow FiO2 Mean Ox Delivery Rate 08/08 0544 98.0 92 18 114/58 97 Room Air 08/07 2136 98.9 89 20 116/60 97 Room Air 08/07 1400 97.9 84 20 110/70 99 Room Air 08/07 0801 97.3 81 20 110/54 Intake & Output 08/08 0800 08/08 0000 08/07 1600 Intake Total 280 340 Output Total 450 150 500 Balance -170 -150 -160 Intake, Oral 280 340 Number 1 Bowel Movements Output, Urine 450 150 500 Patient 51.426 kg Weight Physical Exam General Appearance: Alert, Oriented X3, Cooperative, No Acute Distress Cardiovascular: Regular Rate, Normal S1, Normal S2 Lungs: Clear to Auscultation Abdomen: Normal Bowel Sounds, Soft, No Tenderness Extremities: No Edema, Normal Pulses, No Tenderness/Swelling Current Medications: Current Medications Sig/Liliana Start time Last Medication Dose Route Stop Time Status Admin Acetaminophen 500 MG .STK-MED ONE 08/08 1943 DC PO 08/07 1944 Acetaminophen 500 MG Q6P PRN 08/03 1215 AC 08/07 PO 1946 Aspirin 81 MG DAILY 08/03 899 AC 08/07 PO 0801 Budesonide/ 2 PUF BID 08/02 2140 AC 08/07 Formoterol Fumarate INH 2014 Diltiazem HCl 300 MG DAILY 08/03 09 AC 08/07 PO 0801 Ezetimibe 10 MG DAILY 08/03 09 AC 08/07 PO 0801 Glycerin 2 SPRAY Q2P PRN 08/05 0900 AC 08/05 PO 1007 Levothyroxine Sodium 0.1 MG DAILY AC 08/03 0700 AC 08/08 PO 0632 Magnesium Oxide 400 MG BID 08/05 1415 AC 08/07 PO 2013 Melatonin 5 MG AT BEDTIME 08/03 2100 AC 08/06 PO 2012 Metoprolol Succinate 50 MG DAILY 08/04 0900 AC 08/07 PO 08 Montelukast Sodium 10 MG QPM 08/02 2145 AC 08/07 PO 2013 Omeprazole 20 MG DAILY AC 08/03 0700 AC 08/08 PO 0632 Pioglitazone HCl 30 MG DAILY 08/04 1215 AC 08/07 PO 0801 Sodium Bicarbonate 650 MG BID 08/02 2100 AC 08/07 PO 2013 Last 24 Hrs of Lab/Aries Results Last 24 Hrs of Labs/Mics: Laboratory Tests 08/08/17 0625: Sodium Pending, Potassium Pending, Chloride Pending, Carbon Dioxide Pending, Anion Gap Pending, BUN Pending, Creatinine Pending, BUN/Creatinine Ratio Pending , CBC w Diff Pending, WBC Pending, RBC Pending, Hgb Pending, Hct Pending, MCV Pending, MCH Pending, MCHC Pending, RDW Pending, Plt Count Pending, MPV Pending Assessment/Plan Assessment: Ms. Myers is a 77 y F with PMH of HTN, HLP, asthma, GERD, closed-angle glaucoma, DM, hypothyroidism, recently discharged from [facility] after being treated for prednisone-induced hyperglycemia presented to the ED with chief complaint of lightheadedness and some dizziness which has been going on since her discharge from the hospital on July 24. Problem List: 1. Fatigue 2. Acute gastroenteritis, resolved 3. Acute kidney injury, resolved 4. Chronic hyponatremia 5. Anemia of chronic disease 6. Asymptomatic bactiuria #Fatigue: The patient's main complaint at this point is fatigue. She has an elevated ESR with labs consistent with anemia of chronic disease. She previously saw Dr. Tucker on her recent admission for concern for temporal arteritis. However her ESR subsequently normalized before coming back up to 113. It is now 92. I have a low suspicion for GCA at this point. Etiology of her fatigue is unclear at this time. I did look at her previous notes from Dr. Allison. It seems like she had high gammaglobulins. Repeat labs here show consistent high gammaglobulins as well as high kappa and lambda light chains with normal ratio. 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 Differential diagnosis includes malignancy and amyloidosis. Hematology and rheumatology have consulted and recommended labwork to look for myeloma, scanning for malignancy, and biopsy for amyloidosis. CT abdomen/pelvis showed no masses or abnormalities. After the biopsy today, she can likely be discharged and follow-up outpatient to continue the workup. -Appreciate hematology recognitions -Appreciate rheumatology recommendations -Appreciate endocrinology recommendations -Guiaic all stools -follow-up labs -Abdominal punch fat pad biopsy today #Asymptomatic bactiuria: On presentation, patient had positive urinalysis and now has intact Enterobacter growing in her urine. However she has not had any symptoms and no fever or leukocytosis. She has received 4 days of antibiotics. -Continue to monitor #Chronic hyponatremia: Sodium is actually normal today. -Continue to monitor #Chronic medical problems: -Continue other home medications -Continue pioglitazone DVT prophylaxis with Alps, patient is active Consistent carbohydrate two diet Full code Problem List: 1. Fatigue associated with anemia Pain Ratin Pain Location: no Pain Goal: Remain pain free Pain Plan: see a/p Tomorrow's Labs & Rationales: no
[2017-08-08] MEDS ORDERED: BIOTENE473 ML PO ×2 (07:49→09:45)
--- NOTE | 2017-08-08 07:52 | PN- Student ---
Subjective Subjective: Patient states that she is feeling well, compared to before. She is eager to go home and is asking when is the surgeon coming and when will she be discharged. Reports that her chest pain has resolved. Objective Objective: Vital Signs Date Time Temp Pulse Resp B/P B/P Pulse O2 O2 Flow FiO2 Mean Ox Delivery Rate 08/08 1003 118/58 08/08 0644 98.0 92 18 114/58 97 Room Air 08/07 2136 98.9 89 20 116/60 97 Room Air ED Intake and Output 08/08 0000 08/07 1200 Intake Total 340 280 Output Total 650 550 Balance -310 -270 Intake, Oral 340 280 Output, Urine 650 550 Patient 113 lb Weight Laboratory Tests 08/08 06 Chemistry Sodium (137 - 145 mmol/L) 145 Potassium (3.5 - 5.1 mmol/L) 3.5 Chloride (98 - 107 mmol/L) 109 H Carbon Dioxide (22 - 30 mmol/L) 23 Anion Gap (5 - 16) 12 BUN (7 - 17 mg/dL) 7 Creatinine (0.5 - 1.0 mg/dL) 1.1 H Estimated GFR (>60 ml/min) 48 L BUN/Creatinine Ratio (7 - 25 %) 6.4 L Hematology CBC w Diff NO MAN DIFF REQ WBC (4.8 - 10.8 /CUMM) 3.8 L RBC (4.20 - 5.40 /CUMM) 2.83 L Hgb (12.0 - 16.0 G/DL) 8.1 L Hct (37 - 47 %) 23.6 L MCV (81.0 - 99.0 FL) 83.3 MCH (27.0 - 31.0 PG) 28.7 MCHC (33.0 - 37.0 G/DL) 34.4 RDW (11.5 - 14.5 %) 16.2 H Plt Count (130 - 400 /CUMM) 405 H MPV (7.4 - 10.4 FL) 6.9 L Gran % (42.2 - 75.2 %) 56.2 Lymphocytes % (20.5 - 51.1 %) 19.6 L Monocytes % (1.7 - 9.3 %) 13.5 H Eosinophils % (0 - 5 %) 9.7 H Basophils % (0.0 - 2.0 %) 1.0 Absolute Granulocytes (1.4 - 6.5 /CUMM) 2.2 Absolute Lymphocytes (1.2 - 3.4 /CUMM) 0.8 L Absolute Monocytes (0.10 - 0.60 /CUMM) 0.5 Absolute Eosinophils (0.0 - 0.7 /CUMM) 0.4 Absolute Basophils (0.0 - 0.2 /CUMM) 0 Patient is alert, oriented x3 and cooperative. She does looks very thin to the point of cachexia. Orthostatic blood pressures readings have consistently shown no changes regardless of the position. Normal S1, S2 were heard with no additional murmurs. Vesicular sounds were heard on lung auscultation. Results Results: Laboratory Tests 08/08/17 0625: Anion Gap 12, Estimated GFR 48 L, BUN/Creatinine Ratio 6.4 L, CBC w Diff NO MAN DIFF REQ, RBC 2.83 L, MCV 83.3, MCH 28.7, MCHC 34.4, RDW 16.2 H, MPV 6.9 L, Gran % 56.2, Lymphocytes % 19.6 L, Monocytes % 13.5 H, Eosinophils % 9.7 H , Basophils % 1.0, Absolute Granulocytes 2.2, Absolute Lymphocytes 0.8 L, Absolute Monocytes 0.5, Absolute Eosinophils 0.4, Absolute Basophils 0 08/07/17 0630: Anion Gap 11, Estimated GFR 54 L, BUN/Creatinine Ratio 8.0, Magnesium 2.1, CBC w Diff NO MAN DIFF REQ, RBC 2.92 L, MCV 83.5, MCH 28.6, MCHC 34.3, RDW 16.2 H, MPV 6.9 L, Gran % 52.8, Lymphocytes % 22.1, Monocytes % 14.8 H, Eosinophils % 9.4 H, Basophils % 0.9, Absolute Granulocytes 1.7, Absolute Lymphocytes 0.7 L, Absolute Monocytes 0.5, Absolute Eosinophils 0.3, Absolute Basophils 0, ESR Westergren 92 H, Hepatitis A IgM Ab NONREACTIVE, Hep Bs Antigen NONREACTIVE, Hep B Core IgM Ab Conf NONREACTIVE, Hepatitis C Antibody NONREACTIVE 08/07/17 0600: Magnesium Cancelled 08/07/17 0600: Vit D 1,25-Dihyd Total Pending, 1,25 Dihydroxy Vit D2 Pending, 1,25 Dihydroxy Vit D3 Pending, 21-Hydroxylase Antibody Pending 08/06/17 1000: Urine IEP Pending 08/06/17 0715: Urine Total Volume 1400, Ur Sodium 24 Hour 18 L, Ur Potassium 24 Hour 22.6 L 08/06/17 0625: Anion Gap 12, Estimated GFR > 60, BUN/Creatinine Ratio 7.8, Calcium 10.1, Lactate Dehydrogenase 348, Creatine Kinase 62, Albumin 3.0 L, 25-OH Vitamin D Total 38.2, PTH Intact 15.6 L, CBC w Diff MAN DIFF ORDERED, RBC 2.83 L, MCV 83.9, MCH 28.8, MCHC 34.4, RDW 16.0 H, MPV 6.9 L, Gran % 59.9, Lymphocytes % 17.7 L, Monocytes % 12.8 H, Eosinophils % 9.0 H, Basophils % 0.6, Absolute Granulocytes 2.1, Segmented Neutrophils 67, Band Neutrophils 3, Absolute Lymphocytes 0.6 L, Lymphocytes 13 L, Monocytes 8, Absolute Monocytes 0.4, Eosinophils 9 H, Absolute Eosinophils 0.3, Absolute Basophils 0, Platelet Estimate VERIFIED BY SMEAR, Normocytic RBCs VERIFIED, Normochromic RBCs VERIFIED , Retic Count 1.26, HIV 1&2 Ab Western Blot NONREACTIVE 08/06/17 0600: Prot Electrophoresis SEE NOTE, Total Protein (PEP) 5.9 L, Albumin % (PEP) 2.9 L, Kqnpf-9-Xpfawcqcv 0.5 H, Dzotx-8-Vvhwisfbt 1.0 H, Mfiv-0-Scwubcla 0.4, Beta -2-Globulin 0.3, Gamma Globulins 0.9, Haptoglobin 367 H, IgA 162, IgM 67, Ref Lab Test Result REPORT, Serum IgG 1012 Imaging: Abdomen/Pelvic CT scan: IMPRESSION: No evidence for acute abdominal or pelvic inflammatory or infectious processes. Sigmoid diverticulosis without evidence of diverticulitis. Stable right lower lobe pulmonary nodules. Small hiatal hernia. Status post cholecystectomy. Assessment/Plan Assessment: Mrs. Alarcon is a 77 y/o female with a PMH of DM, HLD, chronic anemia, asthma/ COPD, HTN, hypothyroidism, GERD, closed-angle glaucoma and lung nodules (waxing and waning, followed by Dr. Hawkins) who was admitted on July 22 because of prednisone-induced hyperglycemia. She was complaining of STACK, and PCP prescribed high dose prednisone after suspecting temporal giant cell arteritis. Ophthalmology and Rheumatology agreed that was not the case so prednisone was stopped and no biopsy was taken. This time she presented with diarrhea, weakness and lightheadedness and on admission was found to be hypotensive, hyponatremic and hypokalemic. IgA, IgM, Mg were normal. Globulin tests were consistent with results received from Dr. Miramontes (increased Alpha-1 & Alpha-2 globulins; Beta-1, Beta-2, and gamma globulins were in the normal range). Both free Minerva & Lambda Light chains in serum are high, but the ratio is normal. ESR was 92 (from 113). Thyroglobulin Ab came back high, which is consistent with her picture of decreased thyroglobulin in the setting of Stephanie. Problem list and plan: * Dehydration: Resolved. * Hypokalemia: Resolved. * HENRY: Resolved. * Hypercalcemia in the setting of low PTH: Awaiting results of 1-[address] scan with contrast came back normal. Waiting for Dr. Zaomra to perform the fat pad biopsy today. * Chronic anemia: Reason is unclear. Patient has done a lot of workup as an outpatient and the etiology of her anemia is still unknown. Patient followed up with GI in 2013 (when her anemia started), an incomplete colonoscopy was performed and samples were taken for biopsy which didn't show anything. Patient states that her anemia has become refractory to iron. The marked anemia could be the reason for her fatigue, weakness and lightheadedness. Follow up with PCP and Heme. * Asymptomatic bactiuria: Patient's urine was found to be growing Enterobacter. Because of her initial presentation, it was thought that it could explain some of the symptoms she was presenting so Ceftriaxone was administered. She received the abx for 4 days already, but it doesn't seem like her symptoms were ever related to her bactiuria so Ceftriaxone was stopped. * Other chronic conditions: Contine home meds except for Metformin. Her dose was increased after the last admission so it could be the reason for her diarrhea. Insulin was stopped as well per endo's recommendation and pioglitazone was started. Today's blood sugar levels (taken at 6:45am) was 146. Keep monitoring blood glucose levels and follow up endo's recommendations.
[2017-08-08 07:59] LABS: ABSOLUTE BASOPHIL COUNT 0 /CUMM (0.0-0.2); ABSOLUTE EOSINOPHIL COUNT 0.4 /CUMM (0.0-0.7); ABSOLUTE GRANULOCYTE CT 2.2 /CUMM (1.4-6.5); ABSOLUTE LYMPH COUNT 0.8 /CUMM (1.2-3.4); ABSOLUTE MONOCYTE COUNT 0.5 /CUMM (0.10-0.60); EOSINOPHIL % 9.7 % (0-5); GRANULOCYTE % 56.2 % (42.2-75.2); HEMATOCRIT 23.6 % (37-47); MEAN CORPUSCULAR HGB 28.7 PG (27.0-31.0); MEAN CORPUSCULAR HGB CONC 34.4 G/DL (33.0-37.0); MEAN CORPUSCULAR VOLUME 83.3 FL (81.0-99.0); MEAN PLATELET VOLUME 6.9 FL (7.4-10.4); PLATELET COUNT 405 /CUMM (130-400); RBC DISTRIBUTION WIDTH 16.2 % (11.5-14.5); RED BLOOD CELL CT 2.83 /CUMM (4.20-5.40); WHITE BLOOD CELL COUNT 3.8 /CUMM (4.8-10.8)
--- NOTE | 2017-08-08 07:59 | PN- Hematology ---
Subjective Subjective: She feels well. She denies any new symptoms. She continues to have coldness in her fingers. Review of Systems Constitutional: Denies: chills, fever, weakness. Cardiovascular: Denies: chest pain. Respiratory: Denies: short of breath. Gastrointestinal: Denies: abdominal pain, melena, bloody stool. Genitourinary: Denies: hematuria. Neurological/Psychological: Reports: anxiety. Denies: confusion. All Other Systems: Reviewed and Negative Objective Vital Signs and I&Os Vital Signs Date Time Temp Pulse Resp B/P B/P Pulse O2 O2 Flow FiO2 Mean Ox Delivery Rate 08/08 0544 98.0 92 18 114/58 97 Room Air 08/07 2136 98.9 89 20 116/60 97 Room Air 08/07 1400 97.9 84 20 110/70 99 Room Air 08/07 0801 97.3 81 20 110/54 Intake & Output 08/08 0800 06/ 0000 /06 1600 08/07 0800 / 0000 06/05 1600 Intake Total 280 340 280 120 840 Output Total 450 150 500 550 1 Balance -170 -150 -160 -270 120 839 Intake, Oral 280 340 280 120 840 Number 1 1 Bowel Movements Output, Stool 1 Output, Urine 450 150 500 550 Patient 51.426 kg 51.256 kg Weight Weight Bed scale Measurement Method Physical Exam: General Appearance: well developed/nourished, no apparent distress, alert, awake , comfortable, thin Head: atraumatic, normal appearance Neck: normal inspection, supple Respiratory: normal breath sounds, chest non-tender, no respiratory distress, quiet respiration Cardiovascular: regular rate/rhythm Gastrointestinal: normal bowel sounds, soft Back: normal inspection Extremities: no edema Neurologic/Psych: awake, alert, oriented x 3 Cranial Nerves: normal speech, PERRL, hard of hearing Skin: warm/dry, finger with bluish tint Lymphatic: no anterior cervical tigre Current Medications: Current Medications Sig/Liliana Start time Last Medication Dose Route Stop Time Status Admin Acetaminophen 500 MG .STK-MED ONE 08/08 1943 DC PO 08/07 1944 Acetaminophen 500 MG Q6P PRN 08/03 1215 AC 08/07 PO 194 Aspirin 81 MG DAILY 08/03 0900 AC 08/07 PO 08 Budesonide/ 2 PUF BID 08/03 2139 AC 08/07 Formoterol Fumarate INH 2015 Diltiazem HCl 300 MG DAILY 08/03 0900 AC 08/07 PO 0801 Ezetimibe 10 MG DAILY 08/03 0900 AC 08/07 PO 0801 Glycerin 2 SPRAY Q2P PRN 08/05 0900 AC 08/05 PO 1007 Levothyroxine Sodium 0.1 MG DAILY AC 08/03 0700 AC 08/08 PO 0632 Magnesium Oxide 400 MG BID 08/05 1415 AC 08/07 PO 2013 Melatonin 5 MG AT BEDTIME 08/03 2100 AC 08/06 PO 2012 Metoprolol Succinate 50 MG DAILY 08/04 0900 AC 08/07 PO 0801 Montelukast Sodium 10 MG QPM 08/02 2145 AC 08/07 PO 2013 Omeprazole 20 MG DAILY AC 08/03 07 AC 08/08 PO 0632 Pioglitazone HCl 30 MG DAILY 08/04 1215 AC 08/07 PO 0801 Sodium Bicarbonate 650 MG BID 08/02 2100 AC 08/07 PO 2013 Results Last 24 Hours of Lab Results: Laboratory Tests 08/08 624 Chemistry Sodium Pending Potassium Pending Chloride Pending Carbon Dioxide Pending Anion Gap Pending BUN Pending Creatinine Pending BUN/Creatinine Ratio Pending Hematology CBC w Diff Pending WBC Pending RBC Pending Hgb Pending Hct Pending MCV Pending MCH Pending MCHC Pending RDW Pending Plt Count Pending MPV Pending Recent Imaging Studies: CT Abd/Pelvis 08/07/2017: No evidence for acute abdominal or pelvic inflammatory or infectious processes. Sigmoid diverticulosis without evidence of diverticulitis. Stable right lower lobe pulmonary nodules. Small hiatal hernia. Status post cholecystectomy. Assessment/Plan Hematology Assessment/Recommendations: Ms. Myers is a 77-year-old female with HTN, HLD, asthma, GERD, galucoma, DM, and chronic anemia who presented to the hospital with fatigue, weakness, dizziness, and low blood pressure at home. She has not been feeling well for about a month now. She was recently discharged from [facility] for hyperglycemia and her symptoms have been on going since that time (07/22/2017-). On admission, she was noted to be hypotensive and hyperglycemic. She was noted to have worsening anemia. On admission, her hemoglobin was 9.4 with hematocrit of 27.0%. Her platelet count is normal. Her WBC is trending downward. ESR is elevated. Iron studies demonstrated normal ferritin, normal iron saturation, and normal TIBC. Her serum iron level is low. This is suggestive of anemia of chronic disease/inflammation. There is no obvious etiology with CT of the chest. CT of the abdomen and pelvis was done yesterday and demonstrated no acute pathology. She reports Raynaud like symptoms with cold and blue fingers. She has elevated RF and CCP. SPEP is consistent with inflammatory process. Serum free light chains were normal (normal ratio). Elevated was seen in both light chains which would be more consistent with inflammatory process. UPEP is pending. Immunoglobulin levels were all normal. TSH has been normal. Vitamin B12 and folate are normal. Her overall picture is consistent with an underlying inflammatory process. She has no obvious malignancy. Amyloidosis is unlikely. Leukopenia may be related to inflammatory/immune mediated process. If persistent , flow cytometry may be sent to rule out hematologic process. If no results, she should have bone marrow biopsy. Anemia: -follow up UPEP (24-hour) -rheumatologic evaluation -follow up as an outpatient -bone marrow biopsy if no other obvious etiology Leukopenia: -if persistent, may send for flow cytometry Elevated ESR/RF/CCP: -evaluation by rheumatology Please call [phone] with any questions or concerns. Problem List: 1. Chronic anemia 2. Elevated erythrocyte sedimentation rate 3. Renal insufficiency
--- NOTE | 2017-08-08 08:08 | PN- Diabetes ---
Assessment/Plan Diabetes Assessment: The patient states she feels improved today. She remains off insulin and on pioglitazone. His sugars become somewhat high later in the day but it takes a few weeks for pioglitazone to have its full effect. The patient is scheduled to have a fat pad biopsy today to look for amyloidosis. Plan: Suggest that if the patient goes home today she should go home on pioglitazone 30 mg once a day. She should check her sugar before breakfast and before dinner. She can report them to my office. We can follow her in the office if she wishes for her diabetes. We will leave her off metformin as this may have caused diarrhea and dehydration which led to this admission Subjective Subjective: Feels improved Objective Last 24 Hrs of Vital Signs/I&O Vital Signs Date Time Temp Pulse Resp B/P B/P Pulse O2 O2 Flow FiO2 Mean Ox Delivery Rate 08/09 643 98.0 92 18 114/58 97 Room Air 08/076 98.9 89 20 116/60 97 Room Air 08/07 1400 97.9 84 20 110/70 99 Room Air Vital Signs Date Time Temp Pulse Resp B/P B/P Pulse O2 O2 Flow FiO2 Mean Ox Delivery Rate 08/08 0544 98.0 92 18 114/58 97 Room Air 08/07 2136 98.9 89 20 116/60 97 Room Air 08/07 1400 97.9 84 20 110/70 99 Room Air Intake & Output 08/08 1600 08/08 0800 06 0000 Intake Total 280 Output Total 450 150 Balance -170 -150 Intake, Oral 280 Number 1 Bowel Movements Output, Urine 450 150 Current Medications: Vital Signs Date Time Temp Pulse Resp B/P B/P Pulse O2 O2 Flow FiO2 Mean Ox Delivery Rate 08/08 0544 98.0 92 18 114/58 97 Room Air 08/07 2136 98.9 89 20 116/60 97 Room Air 08/07 1400 97.9 84 20 110/70 99 Room Air Intake & Output 08/08 1600 08/08 0800 06/ 0000 Intake Total 280 Output Total 450 150 Balance -170 -150 Intake, Oral 280 Number 1 Bowel Movements Output, Urine 450 150 Findings Pertinent Lab/Aries Results: Laboratory Tests 08/08 624 Chemistry Sodium (137 - 145 mmol/L) 145 Potassium (3.5 - 5.1 mmol/L) 3.5 Chloride (98 - 107 mmol/L) 109 H Carbon Dioxide (22 - 30 mmol/L) 23 Anion Gap (5 - 16) 12 BUN (7 - 17 mg/dL) 7 Creatinine (0.5 - 1.0 mg/dL) 1.1 H Estimated GFR (>60 ml/min) 48 L BUN/Creatinine Ratio (7 - 25 %) 6.4 L Hematology CBC w Diff Pending WBC Pending RBC Pending Hgb Pending Hct Pending MCV Pending MCH Pending MCHC Pending RDW Pending Plt Count Pending MPV Pending
--- NOTE | 2017-08-08 08:24 | PN- Rheumatology ---
Subjective Subjective: The patient has no specific complaints today. Specifically she has no arthralgias or myalgias. She has had no fever or chills. Objective Vital Signs and I&Os Vital Signs Date Time Temp Pulse Resp B/P B/P Pulse O2 O2 Flow FiO2 Mean Ox Delivery Rate 08/08 0644 98.0 92 18 114/58 97 Room Air 08/07 2136 98.9 89 20 116/60 97 Room Air 08/07 1400 97.9 84 20 110/70 99 Room Air Intake & Output 08/08 1600 08/08 0800 08/08 0000 08/07 1600 08/08 0700 08/07 0000 Intake Total 280 340 280 120 Output Total 450 150 500 550 Balance -170 -150 -160 -270 120 Intake, Oral 280 340 280 120 Number 1 Bowel Movements Output, Urine 450 150 500 550 Patient 113 lb 113 lb Weight Weight Bed scale Measurement Method Assessment/Plan Assessment: No evidence of any rheumatic condition Plan: SHe underwent a CAT scan of her abdomen and pelvis yesterday which was completely unremarkable. In summary there has been no evidence of a malignancy or a systemic illness such as a vasculitis. Her hypokalemia has been corrected which was a result of her diarrhea presumably. Again I have no suspicion that she has a autoimmune disease or rheumatologic disorder to the best of my ability.
[2017-08-08] MEDS ORDERED: ACTOS30 M1 PO (09:45)
[2017-08-08] MEDS ORDERED: METOPROLOL SUC100 M2 PO (09:45)
[2017-08-08 14:36] VITALS: BP 108/62
--- NOTE | 2017-08-08 17:21 | Procedure ---
Minor Surgical Procedure Note Date of Procedure: 08/08/17 Procedure Note: Procedure: Fat pad biopsy Description: After obtaining procedure consent the patient's lower abdomen was prepped with Betadine and draped with sterile dressing. Then the skin was injected with 1% lidocaine with epinephrine. 2 small 1 inch incisions were made just below the umbilicus approximately 3 inches apart. The wound was opened with a small hemostat and bleeding was controlled.then with the 12 blade a quarter size piece of subcutaneous tissue was excised from each incision and bleeding was controlled. The skin was then approximated with 2-0 Vicryl suture and Steri-Strips were applied. The wounds were then dressed with sterile gauze and Tegaderm. The patient tolerated the procedure well EBL: Minimal Condition: Stable Disposition: The procedure was then explained to the son and daughter who understood. The family was also explained that the patient may use Tylenol and ice for pain when discharged home tonight and that if there are any changes in wound appearance or increased pain should contact Dr. Zamora. Specimen: Placed in formalin and sent to pathology.
== END 2017-08-08 18:10 | disposition home health service (06) | DRG 392 ==
LOC: ERH 12:49 → 1NO 15:48 → ERHI 15:48 → ENRESERV 17:49 → 1NO 18:42 → ENPENDDIS 08-08 17:03 → ENTRNSPT 08-08 17:43 → EDTRNSPT 08-08 18:06 → EDTRNSPTSTS 08-08 18:06 → 1NO 08-08 18:10 → CMPTRNSPT 08-08 18:16
PROVIDERS: Dermatology; Internal Medicine; Physician Assistant Medical; Student in an Organized Health Care Education/Training Program
PROC: 0JB80ZX Excision of Abdomen Subcutaneous Tissue and Fascia, Open Approach, Diagnostic (ICD-10-PCS; principal; 2017-08-08)
DX: K52.9 Noninfective gastroenteritis and colitis, unspecified (principal); N17.9 Acute kidney failure, unspecified; N39.0 Urinary tract infection, site not specified; E87.1 Hypo-osmolality and hyponatremia; E86.0 Dehydration; I95.9 Hypotension, unspecified; E87.6 Hypokalemia; E03.9 Hypothyroidism, unspecified; K21.9 Gastro-esophageal reflux disease without esophagitis; H40.20X0 Unspecified primary angle-closure glaucoma, stage unspecified; J45.909 Unspecified asthma, uncomplicated; R42 Dizziness and giddiness; D51.3 Other dietary vitamin B12 deficiency anemia; J44.9 Chronic obstructive pulmonary disease, unspecified; Z79.4 Long term (current) use of insulin; Z79.84 Long term (current) use of oral hypoglycemic drugs; B96.89 Other specified bacterial agents as the cause of diseases classified elsewhere; D63.8 Anemia in other chronic diseases classified elsewhere; E87.8 Other disorders of electrolyte and fluid balance, not elsewhere classified; Z88.1 Allergy status to other antibiotic agents; Z79.82 Long term (current) use of aspirin; E78.5 Hyperlipidemia, unspecified; I10 Essential (primary) hypertension; E11.65 Type 2 diabetes mellitus with hyperglycemia
CPT/HCPCS: 1NSP; 82570; 83519; 83883; 84133; 84156; 84166; 84300; 86335; 86800; 36415; 36592; 71046; 74177; 81001; 82436; 82670; 82784; 83010; 84165; 86376; 87015; 87045; 87086; 87389; 87899; 87899-59; 93005; 93010; 96361; 96374; 97116-GO; 97161-GP; J0696; J1650; J3490; J7508

== ENCOUNTER 2017-08-17 12:22 | Emergency (ER) | payer OTHER ==
[~2017-08-17] VITALS: Ht 154.9 cm; Wt 50.8 kg
[~2017-08-17 12:22] MED LIST changes: +ACTOS30 M1 PO; +BIOTENE473 ML PO
--- NOTE | 2017-08-17 12:49 | ED GENERAL ADULT ---
History of Present Illness General Chief Complaint: General Adult Stated Complaint: SIB DR BROCK, PAIN AT SURGICAL SITE Source: patient, family, old records Exam Limitations: no limitations Allergies Coded Allergies: erythromycin base (Intermediate, PALPITATIONS 08/06/17) Reconcile Medications Aspirin (Aspirin*) 81 MG TAB.CHEW 1 TAB PO DAILY HEART HEALTH (Reported) Cholecalciferol (Vitamin D3) (Vitamin D3) 1,000 UNIT CAPSULE 1 CAP PO DAILY BONE STRENGTH (Reported) Cyanocobalamin (Vitamin B-12) 1,000 MCG TABLET 500 MG PO DAILY HEART HEALTH ( Reported) Diltiazem HCl (Cardizem Cd) 300 MG CAP.ER.24H 1 CAP PO DAILY VENTRICULAR ECTOPY (Reported) Ezetimibe (Zetia) 10 MG TABLET 1 TAB PO DAILY HLP (Reported) Fluticasone/Vilanterol (Breo Ellipta 100-25 Mcg INH) 100 MCG-25 MCG/DOSE BLST.W.DEV 2 PUFF INH DAILY PRN SOB (Reported) Levothyroxine Sodium (Synthroid) 100 MCG TABLET 1 TAB PO DAILY HYPOTHYRODISM (Reported) Metoprolol Succinate 100 MG TAB.ER.24H 0.5 TAB PO DAILY HTN . Montelukast Sodium 10 MG TABLET 1 TAB PO DAILY ALLERGIES (Reported) Omeprazole 20 MG CAPSULE. 1 CAP PO DAILY ACID REFLUX (Reported) Pioglitazone HCl (Actos) 30 MG TABLET 1 TAB PO DAILY DIABETES . Saliva Substitute Combo No.9 (Biotene) 473 ML MOUTHWASH 2 SPRAY PO Q2P PRN dry mouth . Sodium Bicarbonate 650 MG TABLET 1 TAB PO BID VITAMIN SUPPORT (Reported) Tramadol HCl 50 MG TABLET 1 TAB PO BIDP PRN PAIN Triage Note: 77F HAD BIOPSY 6/ TO ABDOMEN AND REPORTS PAIN TO SURGICAL SITE. NO ERYTHEMA OR DRAINAGE TO SITES OBSERVED. ABDOMEN SOFT, ABLE TO TOLERATE PALPATION. STATES PAIN IS 7-9/10 AND WORST IN THE MORNINGS. LAST BM YESTERDAY AND FEELING CONSTIPATED. AFEBRILE Triage Nurses Notes Reviewed? yes Onset: Abrupt Duration: day(s): (2-3), constant, continues in ED, getting worse Timing: single episode today Injury Environment: home Severity: moderate, severe Severity Numbers: 9 No Modifying Factors: none LMP (ages 10-50): post menopausal, unknown : No Patient currently breastfeeds: No HPI: 77 Y/O female history of hypertension, hyperlipidemia, diabetes, COPD presents for evaluation of abdominal pain. Patient was recently admitted to [facility] for evaluation of fatigue dizziness and lightheadedness as well as diarrhea. As part of her evaluation she had a biopsy of her abdominal fat pad on August 08 in order to rule out amyloidosis. Patient states initially after the procedure she was feeling only very mild pain at the incision site however starting 2 or 3 days ago the pain became much more severe. Currently she reports 9 out of 10 lower abdominal pain in the area of the biopsy. The pain is worse with touching the area and movement. There is no other associated symptoms. No nausea vomiting diarrhea no chest pain shortness breath fever. No redness discharge or swelling at the operative site. She reports her last bowel movement was yesterday. She's been taking Tylenol with only mild improvement last dose around 11:30 this morning. She denies chest pain or shortness of breath. (Sanjeev Marques) Vital Signs & Intake/Output Vital Signs & Intake/Output Vital Signs Date Time Temp Pulse Resp B/P B/P Pulse O2 O2 Flow FiO2 Mean Ox Delivery Rate 08/17 1651 98.0 80 18 145/68 100 Room Air 08/17 1442 97.2 91 18 163/68 97 / 1355 97.5 76 18 136/64 98 Room Air 08/17 1255 Room Air 08/17 1233 98.4 86 18 105/55 98 Room Air (Amy DEL VALLE,Carl Farr) Past History Travel History Traveled to [place] past 21 day No Medical History Any Pertinent Medical History? 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 No (Sanjeev Marques) Review of Systems Review of Systems Constitutional: Reports: no symptoms. EENTM: Reports: no symptoms. Respiratory: Reports: no symptoms. Cardiovascular: Reports: no symptoms. GI: Reports: see HPI, abdominal pain. Genitourinary: Reports: no symptoms. Musculoskeletal: Reports: no symptoms. Skin: Reports: no symptoms. Neurological/Psychological: Reports: no symptoms. Hematologic/Endocrine: Reports: no symptoms. Immunologic/Allergic: Reports: no symptoms. All Other Systems: Reviewed and Negative (Sanjeev Marques) Physical Exam Physical Exam General Appearance: well developed/nourished, no apparent distress, alert, awake Head: atraumatic, normal appearance Eyes: Bilateral: normal appearance, PERRL, EOMI. Ears, Nose, Throat: hearing grossly normal Neck: normal inspection, supple, full range of motion Respiratory: normal breath sounds, chest non-tender, no respiratory distress, lungs clear Cardiovascular: regular rate/rhythm, normal peripheral pulses Peripheral Pulses: 2+ radial (R), 2+ radial (L) Gastrointestinal: normal bowel sounds, soft, no organomegaly, there are 2 well- healed surgical scars at the inferior abdomen. They're well approximated. There is no erythema discharge swelling. No focal fluctuant areas no induration. The area around the incision is diffusely tender to palpation but soft. No rebound or guarding. No tenderness in the upper abdomen. Back: normal inspection, normal range of motion, no vertebral tenderness Extremities: normal inspection, normal range of motion, no edema Neurologic/Psych: no motor/sensory deficits, awake, alert, oriented x 3 Skin: intact, normal color, warm/dry Lymphatic: no anterior cervical tigre Core Measures ACS in differential dx? No CVA/TIA Diagnosis: No Sepsis Present: No Sepsis Focused Exam Completed? No (Sanjeev Marques) Progress Differential Diagnoses I considered the following diagnoses in my evaluation of the patient: [ Postsurgical pain, abscess, postsurgical hematoma, diverticulitis, UTI, small bowel obstruction] Initial ED EKG: none (Sanjeev Marques) Plan of Care: Orders Procedure Date/time Status TROPONIN LEVEL 08/17 1259 Complete LACTIC ACID 08/17 1259 Complete COMPREHENSIVE METABOLIC PANEL 08/17 1259 Complete CBC WITHOUT DIFFERENTIAL 08/17 1259 Complete Laboratory Tests 08/17/17 1559: Lactic Acid Cancelled 08/17/17 1311: Anion Gap 10, Estimated GFR 48 L, BUN/Creatinine Ratio 11.8, Glucose 118 H, Lactic Acid 0.6 L, Calcium 9.8, Total Bilirubin 0.3, AST 18, ALT 21, Alkaline Phosphatase 57, Troponin I < 0.01, Total Protein 6.7, Albumin 3.5, Globulin 3.2, Albumin/Globulin Ratio 1.1, CBC w Diff NO MAN DIFF REQ, RBC 3.00 L, MCV 85.2, MCH 28.4, MCHC 33.3, RDW 16.9 H, MPV 7.5, Gran % 80.2 H, Lymphocytes % 10.2 L , Monocytes % 8.9, Eosinophils % 0.4, Basophils % 0.3, Absolute Granulocytes 6.6 H, Absolute Lymphocytes 0.8 L, Absolute Monocytes 0.7 H, Absolute Eosinophils 0, Absolute Basophils 0 Patient seen and evaluated. She is here for evaluation of lower abdominal pain. She had a biopsy of her abdominal wall fat pad on August 08. Her pain started several days ago. There is no signs of infection at the incision site. The incision is well-healed. Vital signs are stable. Labs CT scan ordered patient will be medicated with tramadol and IV fluids. Patient is feeling much better after tramadol. Her labs do not show any sedated change. Her anemia appears chronic. She denies any melena or bright red blood per rectum. CT scan does not show any evidence of abscess or hematoma at the biopsy site. CT does show: Borderline proximal small bowel dilation with an air-fluid level. Consider partial small bowel obstruction or ileus in the appropriate clinical setting. No focal transition point. Patient is not having any nausea or vomiting. She's not distended. He did have a bowel movement 2 days ago. She is passing gas. No clinical signs of small bowel obstruction. Patient did note that she felt like she was constipated. Reviewed all results of today's visit with patient. Advised her to continue to rest drink plenty of fluids. Tramadol as needed for pain advised her that tramadol is a narcotic that can worsen constipation. Advised her to use sparingly and also continue MiraLAX. Advised to follow-up with a primary care doctor to review all results of today's visit. Case was discussed with Dr. Reyes. Dr. Reyes reviewed the CAT scan results and in evaluated the patient he agrees the plan (Sanjeev Marques) (Amy DEL VALLE,Carl Farr) Departure Departure Disposition: HOME OR SELF CARE Condition: Stable Clinical Impression Primary Impression: Abdominal pain Qualifiers: Abdominal location: lower abdomen, unspecified Qualified Code: R10.30 - Lower abdominal pain, unspecified Referrals: Fe DEL VALLE,Dre Conde (PCP/Family) Additional Instructions: Rest and drink plenty of fluids. Continue MiraLAX as needed for constipation. Tramadol as needed for pain. This may cause constipation used sparingly. Make a follow-up with your primary care doctor to review all results of today's visit monitor symptoms return with any concerns. Departure Forms: Customer Survey General Discharge Information Prescriptions: Current Visit Scripts Tramadol HCl 1 TAB PO BIDP PRN PAIN #10 TAB (Sanjeev Marques) PA/HERBICIDE SPRAYER Co-Sign Statement Statement: ED Attending supervision documentation- [x] I saw and evaluated the patient. I have also reviewed all the pertinent lab results and diagnostic results. I agree with the findings and the plan of care as documented in the PA's/HERBICIDE SPRAYER's documentation. Patient presents for evaluation of lower abdominal pain. Physical examination reveals a nondistended abdomen with normal bowel sounds. [] I have reviewed the ED Record and agree with the PA's/HERBICIDE SPRAYER's documentation. [] Additions or exceptions (if any) to the PAs/HERBICIDE SPRAYER's note and plan are summarized below: [] (Amy DEL VALLE,Carl Farr) Critical Care Note Critical Care Note Critical Care Time: non-applicable (Sanjeev Marques)
[2017-08-17 13:24] LABS: ABSOLUTE BASOPHIL COUNT 0 /CUMM (0.0-0.2); ABSOLUTE EOSINOPHIL COUNT 0 /CUMM (0.0-0.7); ABSOLUTE GRANULOCYTE CT 6.6 /CUMM (1.4-6.5); ABSOLUTE LYMPH COUNT 0.8 /CUMM (1.2-3.4); ABSOLUTE MONOCYTE COUNT 0.7 /CUMM (0.10-0.60); BASOPHIL % 0.3 % (0.0-2.0); EOSINOPHIL % 0.4 % (0-5); GRANULOCYTE % 80.2 % (42.2-75.2); HEMATOCRIT 25.5 % (37-47); MEAN CORPUSCULAR HGB 28.4 PG (27.0-31.0); MEAN CORPUSCULAR HGB CONC 33.3 G/DL (33.0-37.0); MEAN CORPUSCULAR VOLUME 85.2 FL (81.0-99.0); MEAN PLATELET VOLUME 7.5 FL (7.4-10.4); PLATELET COUNT 288 /CUMM (130-400); RBC DISTRIBUTION WIDTH 16.9 % (11.5-14.5); WHITE BLOOD CELL COUNT 8.2 /CUMM (4.8-10.8)
--- NOTE | 2017-08-17 14:49 | CT SCAN REPORT ---
EXAMINATION: CT ABDOMEN AND PELVIS WITH CONTRAST CLINICAL INFORMATION: Abscess, hematoma. Pain at biopsy site and lower abdomen one week ago. COMPARISON: CT abdomen and pelvis dated 08/07/2017, CTA chest dated 07/08/2014. TECHNIQUE: Multidetector volumetric imaging was performed of the abdomen and pelvis following IV administration of 80 mL of Optiray 320 intravenous contrast. Sagittal and coronal reformatted images were obtained on the technologist's workstation. DLP: 248 mGy-cm FINDINGS: LUNG BASES: There is a stable 5 mm pulmonary nodule in the right lung base posteriorly. The visualized lung bases are unremarkable. LIVER, GALLBLADDER, AND BILIARY TREE: The liver is normal in size, shape, and attenuation. No focal hepatic lesion or biliary ductal dilatation is present. Gallbladder surgically absent. PANCREAS: Unremarkable. SPLEEN: Unremarkable. ADRENAL GLANDS: Unremarkable. KIDNEYS AND URETERS: The kidneys are normal in size, shape, and attenuation. A few punctate T2-T3 mm right upper pole nonobstructive calculi are noted. No hydronephrosis or hydroureter. No perinephric stranding. BLADDER: Unremarkable. GASTROINTESTINAL TRACT: Borderline prominent left upper quadrant small bowel caliber which contains fluid with an air-fluid level (see coronal image 23 of series 602, axial image 38 of series 2). There is sigmoid colonic diverticulosis without acute diverticulitis. The appendix is not discretely visualized but there is no focal right lower quadrant inflammatory stranding. ABDOMINAL WALL: No significant hernia is appreciated. A dystrophic calcification is noted in the right gluteal subcutaneous fat. LYMPH NODES: Normal. VASCULAR: There is extensive atherosclerotic vascular calcification. No abdominal aortic aneurysm. PELVIC VISCERA: The uterus is not well-visualized, likely surgically absent. No adnexal masses. OSSEOUS STRUCTURES: There are 6 nonrib-bearing lumbar-type vertebral bodies with a lumbarized S1. There is grade 1 anterolisthesis of L5 on S1. Multilevel posterior facet arthropathy is noted. There are mild degenerative changes in the hips bilaterally. IMPRESSION: 1. No obvious biopsy site is identified. No hematoma or abscess is seen within the soft tissues or within the abdomen. 2. Borderline proximal small bowel dilation with an air-fluid level. Consider partial small bowel obstruction or ileus in the appropriate clinical setting. No focal transition point. 3. A few nonobstructive right upper pole renal calculi without hydronephrosis or perinephric stranding. 4. Extensive atherosclerotic vascular calcification without abdominal aortic aneurysm.
[2017-08-17] MEDS ORDERED: TRAMADOL HCL50 M1 PO ×2 (16:33→16:34)
[2017-08-17 16:51] VITALS: BP 145/68
== END 2017-08-17 16:55 ==
LOC: ERH 12:22
PROVIDERS: Physician Assistant Medical
DX: R10.9 Unspecified abdominal pain (principal)
CPT/HCPCS: 74177